=== PATIENT | female | born 1930 | race Caucasian/White ===

== ENCOUNTER 2018-01-29 18:21 | Observation (INO) | payer MEDICARE, OTHER ==
[2018-01-29] MEDS ORDERED: Acetaminophen 325 MG Tab PO ONE (19:30)
--- NOTE | 2018-01-29 20:05 | EDM.PDOC ---
ED HPI GENERAL MEDICAL PROBLEM - General Chief Complaint: Head Injury Stated Complaint: [facility] Time Seen by Provider: 01/29/18 19:28 Source of Information: Reports: Patient, EMS History Limitations: Reports: No Limitations - History of Present Illness INITIAL COMMENTS - FREE TEXT/NARRATIVE: 87-year-old female is brought in by [facility] service for evaluation and treatment of injuries sustained from a fall. Reportedly the patient had just got back from [place]. She was walking with a walker. States that the wind picked up and knocked her over. She is unsure what she hit her head on. Very likely she lost consciousness. She has a wound to her posterior scalp. She also complains of some soreness to her neck and pain to her jaw. She is also complains of pain to the left side of her breast. No chest pain, shortness of breath, abdominal pain, lightheadedness, dizziness, nausea or vomiting. No pain to the extremities. Patient is not on any blood thinners. Primary care providers Dr. Ana Granado. 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 Posterior Head Pain Score (Numeric/FACES): 6 - Related Data Allergies Allergy/AdvReac Type Severity Reaction Status Date / Time dust Allergy Cough Uncoded 05/29/15 15:01 Home Meds: Home Meds Levothyroxine 75 mcg PO DAILY 06/13/14 [History] Losartan Potassium 100 mg PO BEDTIME 06/13/14 [History] Rosuvastatin [Crestor] 5 mg PO DAILY 06/13/14 [History] Sertraline HCl [Zoloft] 50 mg PO DAILY 06/13/14 [History] Verapamil HCl [Verapamil ER] 240 mg PO DAILY 06/13/14 [History] guanFACINE 2 mg PO BEDTIME 06/13/14 [History] hydrALAZINE [Apresoline] 10 mg PO Q12HR 06/13/14 [History] Cholecalciferol (Vitamin D3) [Vitamin D3] 5,000 units PO DAILY 05/29/15 [History ] Multivit-Min/FA/Lycopene/Lut [Certavite Sr-Antioxidant Tab] 1 tab PO BID [History] Omeprazole 20 mg PO DAILY 05/29/15 [History] Acetaminophen [Tylenol] 500 mg PO DAILY PRN 01/29/18 [History] Latanoprost [Xalatan] 1 drop TOP BEDTIME 01/29/18 [History] Meclizine [Antivert] 25 mg PO DAILY PRN 01/29/18 [History] Multivitamin [One Daily] 1 tab PO DAILY 01/29/18 [History] Polyethylene Glycol 3350 [MiraLAX] 17 gram PO DAILY 01/29/18 [History] Spironolactone 50 mg PO DAILY 01/29/18 [History] Tetrahydrozoline HCl 1 drop TOP BEDTIME 01/29/18 [History] Past Medical History HEENT History: Reports: Macular Degeneration Cardiovascular History: Reports: High Cholesterol, Hypertension Genitourinary History: Reports: UTI, Recurrent, Other (See Below) Other Genitourinary History: bladder dropped-unable to have it repaired due to age Musculoskeletal History: Reports: Osteoarthritis, Osteoporosis Neurological History: Reports: Other (See Below) Other Neuro History: CT head revealed a stroke in the past Psychiatric History: Reports: Anxiety, Depression Endocrine/Metabolic History: Reports: Hypothyroidism Oncologic (Cancer) History: Reports: Other (See Below) Other Oncologic History: skin cancer - Past Surgical History GI Surgical History: Reports: Appendectomy, Cholecystectomy Female Surgical History: Reports: Hysterectomy Social & Family History - Tobacco Use Smoking Status *Q: Never Smoker Second Hand Smoke Exposure: No - Caffeine Use Caffeine Use: Reports: Coffee, Soda - Alcohol Use Days Per Week of Alcohol Use: 0 - Recreational Drug Use Recreational Drug Use: No ED ROS GENERAL - Review of Systems Review Of Systems: See Below Respiratory: Denies: Shortness of Breath Cardiovascular: Reports: Syncope. Denies: Chest Pain, Lightheadedness GI/Abdominal: Denies: Abdominal Pain, Nausea, Vomiting Musculoskeletal: Reports: Neck Pain Neurological: Reports: Headache, Syncope ED EXAM, HEAD INJURY - Physical Exam Exam: See Below Exam Limited By: No Limitations General Appearance: Alert, WD/WN, No Apparent Distress Head: Scalp Lacerations (left posterior parietal scalp 2 1cm subcutaneout lacerations, well approximated), Scalp Abrasions (left posterior parietal scalp ), Scalp Hematoma (left posterior parietal scalp). No: Active Bleeding, Little' s Sign, Raccoon Eyes Nexus Criteria: No: Posterior, Midline Cervical Tenderness, Evidence of Intoxication, Altered Level of Consciousness, Focal Neurological Deficit, Painful Distraction Injuries Eyes: Left Eye: Normal Inspection (Left is reactive to light, right is dilated. Reportedly has a history of macular degeneration and cataract surgery to the right and always has an enlarged right pupil.) Ears: Normal External Exam Nose: Normal Inspection, No Blood Throat/Mouth: Normal Inspection, Normal Lips, Normal Teeth, Normal Gums, Normal Oropharynx, Normal Voice, No Airway Compromise Neck: Non-Tender, Full Range of Motion, Normal Alignment, Normal Inspection Respiratory: No Respiratory Distress, Lungs Clear, Normal Breath Sounds, Chest Non-Tender, Other (tenderness to the left lateral breast) Cardiovascular: Normal Peripheral Pulses, Regular Rate, Rhythm, No Murmur GI/Abdominal Exam: Normal Bowel Sounds, Soft, Non-Tender Back Exam: Normal Inspection. No: Vertebral Tenderness Extremities: Normal Inspection Neurologic: Alert, Normal Mood/Affect Skin: Normal Color, Warm/Dry - Charla Coma Score Best Eye Response ([place]): (4) Open Spontaneously Best Verbal Response ([place]): (5) Oriented Best Motor Response ([place]): (6) Obeys Commands EKG INTERPRETATION EKG Date: 01/29/18 Time: 22:20 Rhythm: NSR Rate (Beats/Min): 97 [place]: Normal P-Wave: Present QRS: Normal ST-T: Normal QT: Normal EKG Interpretation Comments: NSR at 97 bpm. No ischemic changes. No LAD. No LVH. NO IVCD. Reviewed by myself and Dr. Teague. Course - Vital Signs Last Recorded V/S: Last Vital Signs Temp 37.0 C 01/29/18 18:30 Pulse 93 01/29/18 18:30 Resp 20 01/29/18 18:30 BP 179/94 H 01/29/18 18:30 Pulse Ox 98 01/29/18 18:30 - Orders/Labs/Meds Orders: Active Orders 24 hr Category Date Time Status Patient Status [ADT] Routine ADT 01/30/18 00:18 Ordered Cardiac Monitoring [RC] . DIRECTED Care 01/29/18 22:13 Active EKG 12 Lead [EKG Documentation Completion] [RC] STAT Care 01/29/18 22:13 Active Peripheral IV Care [RC] . DIRECTED Care 01/29/18 22:15 Active Chest 1V Frontal [CR] Stat Exams 01/29/18 19:27 Taken Chest Abdomen Pelvis w Cont [CT] Stat Exams 01/29/18 22:12 Taken UA W/MICROSCOPIC [URIN] Stat Lab 01/29/18 22:36 Ordered Sodium Chloride 0.9% [Normal Saline] 1,000 ml Med 01/30/18 00:15 Active IV ASDIRECTED Sodium Chloride 0.9% [Normal Saline] 100 ml Med 01/29/18 22:30 Active IV ASDIRECTED Sodium Chloride 0.9% [Saline Flush] Med 01/29/18 22:15 Active 10 ml FLUSH ASDIRECTED PRN Peripheral IV Insertion Adult [OM.PC] Routine Oth 01/29/18 22:15 Ordered Medication Orders Sodium Chloride (Normal Saline) 100 mls @ 60 mls/hr IV ASDIRECTED MOR Last Admin: 01/29/18 22:46 Dose: 60 mls/hr Sodium Chloride (Normal Saline) 1,000 mls @ 75 mls/hr IV ASDIRECTED MOR Sodium Chloride (Saline Flush) 10 ml FLUSH ASDIRECTED PRN PRN Reason: Keep Vein Open Last Admin: 01/29/18 22:46 Dose: 10 ml Admin: 01/29/18 22:25 Dose: 10 ml Labs: Laboratory Tests 01/29/18 01/29/18 01/29/18 Range/Units 19:50 19:50 19:50 WBC 14.47 H (3.98-10.04) K/mm3 RBC 3.87 L (3.98-5.22) M/mm3 Hgb 12.1 (11.2-15.7) gm/L Hct 36.9 (34.1-44.9) % MCV 95.3 H (79.4-94.8) fl MCH 31.3 (25.6-32.2) pg MCHC 32.8 (32.2-35.5) g/dl RDW Std Deviation 44.0 (36.4-46.3) fL Plt Count 198 (182-369) K/mm3 MPV 9.7 (9.4-12.3) fl Neut % (Auto) 88.4 H (34.0-71.1) % Lymph % (Auto) 4.1 L (19.3-51.7) % [place] % (Auto) 6.6 (4.7-12.5) % Eos % (Auto) 0.5 L (0.7-5.8) Baso % (Auto) 0.1 (0.1-1.2) % Neut # (Auto) 12.79 H (1.56-6.13) K/mm3 Lymph # (Auto) 0.59 L (1.18-3.74) K/mm3 [place] # (Auto) 0.96 H (0.24-0.36) K/mm3 Eos # (Auto) 0.07 (0.04-0.36) K/mm3 Baso # (Auto) 0.01 (0.01-0.08) K/mm3 Manual Slide Review Abnormal smear PT 10.5 (9.5-12.1) SECONDS INR 0.96 APTT 27 (24-31) SECONDS Sodium 137 (136-145) mEq/L Potassium 4.4 (3.5-5.1) mEq/L Chloride 102 (98-107) mEq/L Carbon Dioxide 23 (21-32) mEq/L Anion Gap 16.4 H (5-15) BUN 28 H (7-18) mg/dL Creatinine 1.2 H (0.55-1.02) mg/dL Est Cr Clr Drug Dosing 25.63 mL/min Estimated GFR (MDRD) 42 (>60) mL/min BUN/Creatinine Ratio 23.3 H (14-18) Glucose 105 (83-115) mg/dL Calcium 10.1 (8.5-10.1) mg/dL Total Bilirubin 0.4 (0.2-1.0) mg/dL AST 20 (15-37) U/L ALT 22 (14-59) U/L Alkaline Phosphatase 81 (46-116) U/L Troponin I (0.00-0.056) ng/mL Total Protein 7.9 (6.4-8.2) g/dl Albumin 4.1 (3.4-5.0) g/dl Globulin 3.8 gm/dL Albumin/Globulin Ratio 1.1 (1-2) 18 01/29/18 Range/Units 22:18 22:18 WBC (3.98-10.04) K/mm3 RBC (3.98-5.22) M/mm3 Hgb 11.9 (11.2-15.7) gm/L Hct 36.7 (34.1-44.9) % MCV (79.4-94.8) fl MCH (25.6-32.2) pg MCHC (32.2-35.5) g/dl RDW Std Deviation (36.4-46.3) fL Plt Count (182-369) K/mm3 MPV (9.4-12.3) fl Neut % (Auto) (34.0-71.1) % Lymph % (Auto) (19.3-51.7) % Rowan % (Auto) (4.7-12.5) % Eos % (Auto) (0.7-5.8) Baso % (Auto) (0.1-1.2) % Neut # (Auto) (1.56-6.13) K/mm3 Lymph # (Auto) (1.18-3.74) K/mm3 [place] # (Auto) (0.24-0.36) K/mm3 Eos # (Auto) (0.04-0.36) K/mm3 Baso # (Auto) (0.01-0.08) K/mm3 Manual Slide Review PT (9.5-12.1) SECONDS INR APTT (24-31) SECONDS Sodium (136-145) mEq/L Potassium (3.5-5.1) mEq/L Chloride (98-107) mEq/L Carbon Dioxide (21-32) mEq/L Anion Gap (5-15) BUN (7-18) mg/dL Creatinine (0.55-1.02) mg/dL Est Cr Clr Drug Dosing mL/min Estimated GFR (MDRD) (>60) mL/min BUN/Creatinine Ratio (14-18) Glucose (83-115) mg/dL Calcium (8.5-10.1) mg/dL Total Bilirubin (0.2-1.0) mg/dL AST (15-37) U/L ALT (14-59) U/L Alkaline Phosphatase (46-116) U/L Troponin I < 0.017 (0.00-0.056) ng/mL Total Protein (6.4-8.2) g/dl Albumin (3.4-5.0) g/dl Globulin gm/dL Albumin/Globulin Ratio (1-2) Meds: Medications Generic Name Dose Route Start Last Admin Trade Name Freq PRN Reason Stop Dose Admin Sodium Chloride 100 mls @ 60 mls/hr 01/29/18 22:30 01/29/18 22:46 Normal Saline IV 60 mls/hr ASDIRECTED MOR Administration Sodium Chloride 1,000 mls @ 75 mls/hr 01/30/18 00:15 Normal Saline IV ASDIRECTED MOR Sodium Chloride 10 ml 01/29/18 22:15 01/29/18 22:46 Saline Flush FLUSH 10 ml ASDIRECTED PRN Administration Keep Vein Open Discontinued Medications Generic Name Dose Route Start Last Admin Trade Name Benitoq PRN Reason Stop Dose Admin Acetaminophen 650 mg 01/29/18 19:30 01/29/18 19:37 Tylenol PO 01/29/18 19:31 650 mg NOW ONE Administration Sodium Chloride 250 mls @ 999 mls/hr 01/29/18 22:13 01/29/18 22:25 Normal Saline IV 01/29/18 22:28 999 mls/hr ONETIME ONE Administration Iopamidol 100 ml 01/29/18 22:27 01/29/18 22:45 Isovue-300 (61%) IVPUSH 01/29/18 22:28 100 ml ONETIME ONE Administration Ondansetron HCl 4 mg 01/29/18 22:00 01/29/18 22:06 Zofran Odt PO 01/29/18 22:01 4 mg ONETIME ONE Administration - Radiology Interpretation Free Text/Narrative:: Head CT Technique: Multiple axial sections through the brain were obtained. Intravenous contrast was not utilized. Comparison: Prior head CT exam of 05/29/15. Findings: Soft tissue hematoma is seen within the posterior and left sided scalp. Findings: Ventricles along with basal cisterns and sulci over the convexities are moderately prominent. Diminished density is noted within the periventricular and subcortical white matter which is compatible with small vessel ischemic demyelination change. No other abnormal parenchymal densities are seen. No evidence of intracranial hemorrhage. No midline shift or mass effect is seen. Slight atherosclerotic calcification is noted within the vertebral vessels and carotid siphon. No acute calvarial abnormality is appreciated. Minimal mucosal thickening within the maxillary sinuses is noted which is felt to be incidental. Impression: 1. Senescent change and minimal sinus findings which are felt to be incidental. 2. Soft tissue hematoma within the posterior left scalp. 3. No acute intracranial abnormality is identified. CT cervical spine Technique: Multiple axial sections through the cervical spine were obtained from above C1 inferiorly to the mid T2 level. Reconstructed coronal and sagittal images were reviewed. Comparison: No previous cervical spine imaging. Findings: Degenerative change is noted between the dens and anterior arch of C1. Severe disc space narrowing noted at C6-C7 with mild posterior osteophytes and more prominent anterior osteophytes. Bony structures are also osteopenic. No fracture is appreciated. Slight degenerative change is scattered within the apophyseal joints. No central canal stenosis or neural foraminal stenosis is seen. No abnormal subluxation is seen. Slight scoliosis is present. Impression: 1. Mild degenerative change and scoliosis. 2. Nothing acute is appreciated on CT study of the cervical spine. CT facial bones Technique: Multiple axial sections through the facial bones were obtained. Reconstructed coronal and sagittal images were reviewed. Findings: Mucosal thickening suggested on previous head CT study is not confirmed on the facial bone CT. Paranasal sinuses are felt to be clear. Mild degenerative change is noted within the temporomandibular joints. No facial bone fracture is identified. Impression: 1. Slight degenerative change within the temporomandibular joints. 2. No acute facial bone fracture is seen. Chest xray shows no acute intrathoraccic prcess. Chest CT with IV contrast impression per [facility]: 1. Multiple small pleural nodules measuring up to 5 mm in diameter. For low risk patient, no follow-up is necessary. For high-risk patients (smoking history other known risk factors) an optional chest CT at 12 months could be performed. 2. 3.9 nodule within the right lobe of the thyroid gland with 1 cm nodule in the left lobe. Ultrasound may be considered for further evaluation. 3. Age- indeterminate nondisplaced fracture of the left anterior third and fourth ribs, possibly remote. 4. Large hiatal hernia. CT of the abdomen and pelvis with IV contrast impression per [facility]: 1. Questionable nondisplaced sacral fracture. There is small presacral hematoma with mild extravasation. 2. Enhancing 2.7 a lesion within the spleen. Consider or MRI further evaluate.. Moderate diverticulosis. 4. There is a 1 cm cyst within the body of the pancreas. Consider single follow-up abdominal MRI in one year. A limited to weighted MRI can be performed for routine follow-up. 5. Bilateral renal cysts. - Re-Assessments/Exams Free Text/Narrative Re-Assessment/Exam: 01/29/18 22:09 Review the chest xray, head CT, cervical spine and maxillofacial CT results The patient got up to use the restroom. We did give her a walker which she normally uses at home. Nursing staff informed me she is having problems going to the bathroom but when she sat down she felt lightheaded and nauseous. She is brought back to her room. Systolic blood pressures found in the 90s. Has greatly decreased from systolic 170s earlier. We'll go ahead and CT her chest and abdomen and pelvis to ensure she is not have any intrathoracic or intra- abdominal bleeding. Is possible that she has had a vasovagal episode. EKG, troponin and a repeat H&H also ordered. 01/30/18 00:26 Repeat H&H returned essentially unchanged. Troponin returned negative. I reviewed the CT of the chest, abdomen and pelvis with the patient and her family. She is not having any pain. I did push on her sacrum,again, and she does not have any pain to the sacrum. She is resting comfortably at this time. Case discussed with Dr. Mondragon, hospitalist on-call. We'll admit for observation. Departure - Departure Time of Disposition: 00:32 Disposition: Refer to Observation Condition: Good Clinical Impression: Hematoma Fall Qualifiers: Encounter type: initial encounter Qualified Code(s): W19.XXXA - Unspecified fall, initial encounter Left rib fracture Qualifiers: Encounter type: initial encounter Rib fracture type: multiple ribs Fracture type: closed Qualified Code(s): S22.42XA - Multiple fractures of ribs, left side , initial encounter for closed fracture - Discharge Information Referrals: Ana Granado MD [Primary Care Provider] - Forms: ED Department Discharge - My Orders Last 24 Hours: My Active Orders 01/29/18 19:27 Chest 1V Frontal [CR] Stat 01/29/18 22:12 Chest Abdomen Pelvis w Cont [CT] Stat 01/29/18 22:13 Cardiac Monitoring [RC] . DIRECTED EKG 12 Lead [EKG Documentation Completion] [RC] STAT 01/29/18 22:15 Peripheral IV Care [RC] . DIRECTED Sodium Chloride 0.9% [Saline Flush] 10 ml FLUSH ASDIRECTED PRN Peripheral IV Insertion Adult [OM.PC] Routine 01/29/18 22:30 Sodium Chloride 0.9% [Normal Saline] 100 ml IV ASDIRECTED 01/29/18 22:36 UA W/MICROSCOPIC [URIN] Stat 01/30/18 00:15 Sodium Chloride 0.9% [Normal Saline] 1,000 ml IV ASDIRECTED 01/30/18 00:18 Patient Status [ADT] Routine - Assessment/Plan Last 24 Hours: My Active Orders 01/29/18 19:27 Chest 1V Frontal [CR] Stat 01/29/18 22:12 Chest Abdomen Pelvis w Cont [CT] Stat 01/29/18 22:13 Cardiac Monitoring [RC] . DIRECTED EKG 12 Lead [EKG Documentation Completion] [RC] STAT 01/29/18 22:15 Peripheral IV Care [RC] . DIRECTED Sodium Chloride 0.9% [Saline Flush] 10 ml FLUSH ASDIRECTED PRN Peripheral IV Insertion Adult [OM.PC] Routine 01/29/18 22:30 Sodium Chloride 0.9% [Normal Saline] 100 ml IV ASDIRECTED 01/29/18 22:36 UA W/MICROSCOPIC [URIN] Stat 01/30/18 00:15 Sodium Chloride 0.9% [Normal Saline] 1,000 ml IV ASDIRECTED 01/30/18 00:18 Patient Status [ADT] Routine
--- NOTE | 2018-01-29 21:03 | CT ---
Head CT Technique: Multiple axial sections through the brain were obtained. Intravenous contrast was not utilized. Comparison: Prior head CT exam of 05/29/15. Findings: Soft tissue hematoma is seen within the posterior and left sided scalp. Findings: Ventricles along with basal cisterns and sulci over the convexities are moderately prominent. Diminished density is noted within the periventricular and subcortical white matter which is compatible with small vessel ischemic demyelination change. No other abnormal parenchymal densities are seen. No evidence of intracranial hemorrhage. No midline shift or mass effect is seen. Slight atherosclerotic calcification is noted within the vertebral vessels and carotid siphon. No acute calvarial abnormality is appreciated. Minimal mucosal thickening within the maxillary sinuses is noted which is felt to be incidental. Impression: 1. Senescent change and minimal sinus findings which are felt to be incidental. 2. Soft tissue hematoma within the posterior left scalp. 3. No acute intracranial abnormality is identified. Diagnostic code #2
--- NOTE | 2018-01-29 21:06 | CT ---
CT cervical spine Technique: Multiple axial sections through the cervical spine were obtained from above C1 inferiorly to the mid T2 level. Reconstructed coronal and sagittal images were reviewed. Comparison: No previous cervical spine imaging. Findings: Degenerative change is noted between the dens and anterior arch of C1. Severe disc space narrowing noted at C6-C7 with mild posterior osteophytes and more prominent anterior osteophytes. Bony structures are also osteopenic. No fracture is appreciated. Slight degenerative change is scattered within the apophyseal joints. No central canal stenosis or neural foraminal stenosis is seen. No abnormal subluxation is seen. Slight scoliosis is present. Impression: 1. Mild degenerative change and scoliosis. 2. Nothing acute is appreciated on CT study of the cervical spine. Diagnostic code #2
--- NOTE | 2018-01-29 21:16 | CT ---
CT facial bones Technique: Multiple axial sections through the facial bones were obtained. Reconstructed coronal and sagittal images were reviewed. Findings: Mucosal thickening suggested on previous head CT study is not confirmed on the facial bone CT. Paranasal sinuses are felt to be clear. Mild degenerative change is noted within the temporomandibular joints. No facial bone fracture is identified. Impression: 1. Slight degenerative change within the temporomandibular joints. 2. No acute facial bone fracture is seen. Diagnostic code #2
[2018-01-29] MEDS ORDERED: Ondansetron 4 MG Tab.DIS PO ONE (22:00)
[2018-01-29] MEDS ORDERED: Sodium Chloride 0.9% 250 ML IV ONE (22:13)
[2018-01-29] MEDS: Sodium Chloride 0.9% 10 ML Syringe FLUSH PRN ×2 (22:25→22:46)
[2018-01-29] MEDS ORDERED: Iopamidol 612 MG/ML 100 ML Bottle IVPUSH ONE (22:27)
[2018-01-29] MEDS ORDERED: Sodium Chloride 0.9% 100 ML IV SCH (22:30)
[2018-01-30] MEDS ORDERED: Sodium Chloride 0.9% 1,000 ML IV SCH ×2 (00:15→01:00)
[2018-01-30] MEDS ORDERED: hydrALAZINE 20 MG/ML SDV IVPUSH PRN (00:58)
[2018-01-30] MEDS ORDERED: Sodium Chloride 0.9% 500 ML IV ONE (00:59)
[2018-01-30] MEDS: Acetaminophen 325 MG Tab PO PRN ×3 (01:23→09:00)
--- NOTE | 2018-01-30 07:39 | CR ---
Chest: Portable view of the chest was obtained. Comparison: Prior chest x-ray of 11/25/16. Heart size is normal. Moderately large hiatal hernia is seen. Tortuous thoracic aorta is seen. Lungs are clear. Bony structures are osteopenic. Impression: 1. Incidental findings as described above. Nothing acute is identified on portable chest x-ray. Diagnostic code #2
--- NOTE | 2018-01-30 07:43 | CT ---
CT chest Technique: Multiple axial sections were obtained from above the lung apices inferiorly through the lung bases. Intravenous contrast was utilized. Comparison: No prior chest CT. Right lobe of the thyroid gland is enlarged by a nodule measuring approximately 3.1 cm. Smaller left lobe nodule is seen measuring 1.7 cm. Atherosclerotic calcifications seen within the thoracic aorta without aneurysm. No mediastinal adenopathy or hilar adenopathy is seen. Moderately large hiatal hernia is seen. Insignificant coronary artery calcification is seen. Mild motion artifact identified which slightly limits the lung window settings. Small scattered nodules identified within the chest which are felt to measure less than 5 mm and are incidental given the patient's age. Lungs show no acute parenchymal densities. No pleural effusions are seen. Several incidental hemangiomas seen within the thoracic spine. Slight deformity noted to several left upper ribs which are felt to be due to old healed fractures. No acute osseous abnormality is seen. Scattered degenerative change noted within the spine. Impression: 1. Multiple findings as noted above which are likely incidental given the patient's age. 2. Nothing acute is appreciated on CT study of the chest. Diagnostic code #2 I agree with preliminary report issued by [employer] ([facility] preliminary report dictated on 01/30/18, 12:37 AM Central Time) CT abdomen and pelvis Technique: Multiple axial sections were obtained from above the dome of the diaphragm inferiorly through the pubic symphysis. Intravenous contrast was utilized. No oral contrast has been given. Comparison: No prior CT abdomen or pelvis exam. Findings: Liver shows no focal parenchymal abnormality. Moderately large hiatal hernia is noted. Multiple cysts are seen within both kidneys which appears simple. Largest cyst within the right kidney measures about 4.8 cm and largest cyst within the left kidney measures about 3.3 cm. Spleen shows an enhancing lesion measuring 2.5 cm. Pancreas shows a small cyst measuring 1.0 cm. Aorta shows mild atherosclerotic change without aneurysmal dilatation. No retroperitoneal adenopathy or mesenteric abnormalities are seen. No pelvic mass or adenopathy is noted. Delayed images were also obtained through the abdomen and pelvis which show contrast excretion into the ureters which appear unremarkable. Contrast also noted within the bladder. No free fluid or inflammatory change is seen within the abdomen or pelvis. Degenerative change noted within the spine. On the reconstructed sagittals there is a slightly displaced fracture within the distal sacrum. Impression: 1. 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 2. Enhancing lesion within the spleen most likely benign (because of the patient's age). 3. Slightly displaced distal sacral fracture seen on the lateral view which appears to be acute. 4. Other incidental findings as described above. Diagnostic code #3 Agree with preliminary report issued by [employer] ([facility] preliminary report dictated on 01/30/18, 12:37 AM Central Time)
[2018-01-30] MEDS ORDERED: Magnesium Sulfate/Water 2 GM in Premix Bag 1 BAG IV ONE (07:44)
[2018-01-30 08:46] VITALS: BP 153/78
[2018-01-30] MEDS ORDERED: Sodium Chloride 0.9% 10 ML Syringe FLUSH PRN (10:57)
--- NOTE | 2018-01-30 11:27 | PCM.HP ---
H&P History of Present Illness - General Date of Service: 01/30/18 Admit Problem/Dx: Admission Diagnosis/Problem Admission Diagnosis/Problem Fall Source of Information: Patient, Old Records, Provider History Limitations: Reports: No Limitations - History of Present Illness Initial Comments - Free Text/Narative: This is an 87 yo female with past medical h/o HTN, hyperlipidemia, macular degeneration, osteoarthritis, osteoporosis, anxiety, depression, stroke, hypothyroidism, vertigo who comes in late last night for a fall. She currently complains of left chest pain as well as pain with sitting, there is also an abrasion to the back of her head but there is no pain. Patient states her chest pain is a 5/10 with movement, 0/10 at rest. She reports no fever, chills, headache, nausea, vomiting, diarrhea, dizziness, shortness of breath, or any other GI/ complaints. Her symptoms improved after receiving fluids and pain management in the ED. Her initial workup in the ED shows a CBC of WBC of 14.47, MCHC of 32.8, RDW 44, neutrophils of 88.4% and lymphocyte of 4.1%. Her coagulation study shows PT of 10.5, INR of 0.96, APTT of 27. Her chemistry shows BUN of 28, Creatinine of 1.2 , Albumin 4.1, Glucose of 105, Alkaline phosphatase of 81, Mg 1.7, Troponin of < 0.017, ProBNP of 769, Total protein of 7.9, an Albumin of 4.1. Chest X-ray and Facial/Sinus/Head/Cervical Spine/Abdomen CTs shows no acute abnormal findings. Pelvis CT showed distal sacral fracture and Chest CT showed multiple old healed left upper rib fractures, most likely from a previous fall. EKG was negative. She is subsequently admitted to the medical floor for observation. She is a full code. Her PCP Ana Granado. Posterior Head Pain Score (Numeric/FACES): 6 left breast area Pain Score (Numeric/FACES): 4 - Related Data Allergies/Adverse Reactions: Allergies Allergy/AdvReac Type Severity Reaction Status Date / Time pollen extracts Allergy Sneezing Verified 01/30/18 01:32 dust Allergy Cough Uncoded 05/29/15 15:01 Home Medications: Home Meds Levothyroxine 75 mcg PO QAM 06/13/14 [History] Losartan Potassium 100 mg PO BEDTIME 06/13/14 [History] Rosuvastatin [Crestor] 5 mg PO DAILY 06/13/14 [History] Sertraline HCl [Zoloft] 50 mg PO DAILY 06/13/14 [History] Verapamil HCl [Verapamil ER] 240 mg PO DAILY 06/13/14 [History] guanFACINE 1 mg PO BEDTIME 06/13/14 [History] hydrALAZINE [Apresoline] 10 mg PO Q12HR 06/13/14 [History] Cholecalciferol (Vitamin D3) [Vitamin D3] 5,000 units PO DAILY 05/29/15 [History ] Multivit-Min/FA/Lycopene/Lut [Certavite Sr-Antioxidant Tab] 1 tab PO BID [History] Omeprazole 20 mg PO DAILY 05/29/15 [History] Acetaminophen [Tylenol] 500 mg PO DAILY PRN 01/29/18 [History] Latanoprost [Xalatan 0.005% Ophth Soln] 1 drop TOP BEDTIME 01/29/18 [History] Meclizine [Antivert] 25 mg PO DAILY PRN 01/29/18 [History] Multivitamin [One Daily] 1 tab PO DAILY 01/29/18 [History] Polyethylene Glycol 3350 [MiraLAX] 17 gram PO DAILY 01/29/18 [History] Spironolactone 50 mg PO DAILY 01/29/18 [History] Tetrahydrozoline HCl 1 drop TOP BEDTIME 01/29/18 [History] Past Medical History HEENT History: Reports: Macular Degeneration Cardiovascular History: Reports: High Cholesterol, Hypertension Respiratory History: Reports: None Genitourinary History: Reports: UTI, Recurrent, Other (See Below) Other Genitourinary History: bladder dropped-unable to have it repaired due to age Musculoskeletal History: Reports: Osteoarthritis, Osteoporosis Neurological History: Reports: Other (See Below) Other Neuro History: CT head revealed a stroke in the past Psychiatric History: Reports: Anxiety, Depression Endocrine/Metabolic History: Reports: Hypothyroidism Hematologic History: Reports: Anemia Immunologic History: Reports: None Oncologic (Cancer) History: Reports: Other (See Below) Other Oncologic History: skin cancer Dermatologic History: Reports: None - Past Surgical History HEENT Surgical History: Reports: Cataract Surgery GI Surgical History: Reports: Appendectomy, Cholecystectomy Female Surgical History: Reports: Hysterectomy Social & Family History - Family History Endocrine/Metabolic: Reports: Diabetes, type II - Tobacco Use Smoking Status *Q: Never Smoker Second Hand Smoke Exposure: No - Caffeine Use Caffeine Use: Reports: Coffee Caffeine Use Comment: Drinks about a cup of coffee each morning - Alcohol Use Days Per Week of Alcohol Use: 0 - Recreational Drug Use Recreational Drug Use: No H&P Review of Systems - Review of Systems: Review Of Systems: See Below General: Reports: No Symptoms. Denies: Fever, Chills, Weakness HEENT: Reports: No Symptoms. Denies: Headaches, Vertigo Pulmonary: Reports: No Symptoms. Denies: Shortness of Breath Cardiovascular: Reports: Chest Pain (5/10 left chest pain with movement only). Denies: Palpitations, Dyspnea on Exertion, Edema Gastrointestinal: Reports: No Symptoms. Denies: Abdominal Pain, Diarrhea, Nausea, Vomiting Genitourinary: Reports: No Symptoms. Denies: Dysuria, Frequency, Burning Musculoskeletal: Reports: No Symptoms Skin: Reports: No Symptoms Psychiatric: Reports: No Symptoms Neurological: Reports: No Symptoms Hematologic/Lymphatic: Reports: No Symptoms Immunologic: Reports: No Symptoms Exam - Exam Exam: See Below - Vital Signs Vital Signs: Last Vital Signs Temp 98.4 F 01/30/18 08:43 Pulse 84 01/30/18 08:43 Resp 18 01/30/18 08:43 BP 153/78 H 01/30/18 08:43 Pulse Ox 90 L 01/30/18 08:43 Orthostatic Blood Pressure [ 137/71 Standing] Orthostatic Blood Pressure [ 148/89 Sitting] Orthostatic Blood Pressure [ 142/84 Supine] Weight: 159 lb 11.2 oz - Exam Quality Assessment: No: Supplemental Oxygen, Urinary Catheter General: Alert, Oriented, 4 HEENT: Conjunctiva Clear, EACs Clear, EOMI, Hearing Intact, Mucosa Moist & [place] , Nares Patent, Normal Nasal Septum, Posterior Pharynx Clear, TMs Clear, Other ( abrasion to the back of the head) Neck: Supple, Trachea Midline, 2 Lungs: Clear to Auscultation, Normal Respiratory Effort. No: Decreased Breath Sounds, Crackles, Wheezing Cardiovascular: Regular Rate, Regular Rhythm GI/Abdominal Exam: Normal Bowel Sounds, Soft, Non-Tender, No Organomegaly, No Distention, No Abnormal Bruit, No Mass, Pelvis Stable (Female) Exam: Deferred Rectal (Female) Exam: Deferred Back Exam: Normal Inspection, Full Range of Motion, NT Extremities: Normal Inspection, Normal Range of Motion, Non-Tender, No Pedal Edema, Normal Capillary Refill Peripheral Pulses: 2+: Posterior Tibial (L), Posterior Tibial (R), Dorsalis Pedis (L), Dorsalis Pedis (R) Skin: Warm, Dry, Intact Neurological: Cranial Nerves Intact (grossly) Neuro Extensive - Mental Status: Alert, Oriented x3, Normal Mood/Affect, Normal Cognition Psychiatric: Alert, Normal Affect, Normal Mood Physical Exam Comments:: Left chest TTP and 5/10 pain with movement and palpation only. 0/10 at rest. - Patient Data Lab Results Last 24 hrs: Laboratory Results - last 24 hr 01/29/18 01/29/18 01/29/18 Range/Units 19:50 19:50 19:50 WBC 14.47 H (3.98-10.04) K/mm3 RBC 3.87 L (3.98-5.22) M/mm3 Hgb 12.1 (11.2-15.7) gm/L Hct 36.9 (34.1-44.9) % MCV 95.3 H (79.4-94.8) fl MCH 31.3 (25.6-32.2) pg MCHC 32.8 (32.2-35.5) g/dl RDW Std Deviation 44.0 (36.4-46.3) fL Plt Count 198 (182-369) K/mm3 MPV 9.7 (9.4-12.3) fl Neut % (Auto) 88.4 H (34.0-71.1) % Lymph % (Auto) 4.1 L (19.3-51.7) % [place] % (Auto) 6.6 (4.7-12.5) % Eos % (Auto) 0.5 L (0.7-5.8) Baso % (Auto) 0.1 (0.1-1.2) % Neut # (Auto) 12.79 H (1.56-6.13) K/mm3 Lymph # (Auto) 0.59 L (1.18-3.74) K/mm3 [place] # (Auto) 0.96 H (0.24-0.36) K/mm3 Eos # (Auto) 0.07 (0.04-0.36) K/mm3 Baso # (Auto) 0.01 (0.01-0.08) K/mm3 Manual Slide Review Abnormal smear PT 10.5 (9.5-12.1) SECONDS INR 0.96 APTT 27 (24-31) SECONDS Sodium 137 (136-145) mEq/L Potassium 4.4 (3.5-5.1) mEq/L Chloride 102 (98-107) mEq/L Carbon Dioxide 23 (21-32) mEq/L Anion Gap 16.4 H (5-15) BUN 28 H (7-18) mg/dL Creatinine 1.2 H (0.55-1.02) mg/dL Est Cr Clr Drug Dosing 25.63 mL/min Estimated GFR (MDRD) 42 (>60) mL/min BUN/Creatinine Ratio 23.3 H (14-18) Glucose 105 (83-115) mg/dL Calcium 10.1 (8.5-10.1) mg/dL Magnesium (1.8-2.4) mg/dl Total Bilirubin 0.4 (0.2-1.0) mg/dL AST 20 (15-37) U/L ALT 22 (14-59) U/L Alkaline Phosphatase 81 (46-116) U/L Troponin I (0.00-0.056) ng/mL NT-Pro-B Natriuret Pep (0-450) pg/mL Total Protein 7.9 (6.4-8.2) g/dl Albumin 4.1 (3.4-5.0) g/dl Globulin 3.8 gm/dL Albumin/Globulin Ratio 1.1 (1-2) MRSA (PCR) 01/29/18 01/29/18 01/30/18 Range/Units 22:18 22:18 05:03 WBC (3.98-10.04) K/mm3 RBC (3.98-5.22) M/mm3 Hgb 11.9 (11.2-15.7) gm/L Hct 36.7 (34.1-44.9) % MCV (79.4-94.8) fl MCH (25.6-32.2) pg MCHC (32.2-35.5) g/dl RDW Std Deviation (36.4-46.3) fL Plt Count (182-369) K/mm3 MPV (9.4-12.3) fl Neut % (Auto) (34.0-71.1) % Lymph % (Auto) (19.3-51.7) % [place] % (Auto) (4.7-12.5) % Eos % (Auto) (0.7-5.8) Baso % (Auto) (0.1-1.2) % Neut # (Auto) (1.56-6.13) K/mm3 Lymph # (Auto) (1.18-3.74) K/mm3 [place] # (Auto) (0.24-0.36) K/mm3 Eos # (Auto) (0.04-0.36) K/mm3 Baso # (Auto) (0.01-0.08) K/mm3 Manual Slide Review PT (9.5-12.1) SECONDS INR APTT (24-31) SECONDS Sodium (136-145) mEq/L Potassium (3.5-5.1) mEq/L Chloride (98-107) mEq/L Carbon Dioxide (21-32) mEq/L Anion Gap (5-15) BUN (7-18) mg/dL Creatinine (0.55-1.02) mg/dL Est Cr Clr Drug Dosing mL/min Estimated GFR (MDRD) (>60) mL/min BUN/Creatinine Ratio (14-18) Glucose (83-115) mg/dL Calcium (8.5-10.1) mg/dL Magnesium (1.8-2.4) mg/dl Total Bilirubin (0.2-1.0) mg/dL AST (15-37) U/L ALT (14-59) U/L Alkaline Phosphatase (46-116) U/L Troponin I < 0.017 (0.00-0.056) ng/mL NT-Pro-B Natriuret Pep (0-450) pg/mL Total Protein (6.4-8.2) g/dl Albumin (3.4-5.0) g/dl Globulin gm/dL Albumin/Globulin Ratio (1-2) MRSA (PCR) Negative 01/30/18 01/30/18 01/30/18 Range/Units 05:13 05:13 05:13 WBC 10.32 H (3.98-10.04) K/mm3 RBC 3.36 L (3.98-5.22) M/mm3 Hgb 10.6 L (11.2-15.7) gm/L Hct 32.0 L (34.1-44.9) % MCV 95.2 H (79.4-94.8) fl MCH 31.5 (25.6-32.2) pg MCHC 33.1 (32.2-35.5) g/dl RDW Std Deviation 44.5 (36.4-46.3) fL Plt Count 184 (182-369) K/mm3 MPV 10.1 (9.4-12.3) fl Neut % (Auto) 88.6 H (34.0-71.1) % Lymph % (Auto) 4.6 L (19.3-51.7) % [place] % (Auto) 6.5 (4.7-12.5) % Eos % (Auto) 0 L (0.7-5.8) Baso % (Auto) 0.1 (0.1-1.2) % Neut # (Auto) 9.15 H (1.56-6.13) K/mm3 Lymph # (Auto) 0.47 L (1.18-3.74) K/mm3 [place] # (Auto) 0.67 H (0.24-0.36) K/mm3 Eos # (Auto) 0.00 L (0.04-0.36) K/mm3 Baso # (Auto) 0.01 (0.01-0.08) K/mm3 Manual Slide Review Abnormal smear PT (9.5-12.1) SECONDS INR APTT (24-31) SECONDS Sodium (136-145) mEq/L Potassium (3.5-5.1) mEq/L Chloride (98-107) mEq/L Carbon Dioxide (21-32) mEq/L Anion Gap (5-15) BUN (7-18) mg/dL Creatinine (0.55-1.02) mg/dL Est Cr Clr Drug Dosing mL/min Estimated GFR (MDRD) (>60) mL/min BUN/Creatinine Ratio (14-18) Glucose (83-115) mg/dL Calcium (8.5-10.1) mg/dL Magnesium 1.7 L (1.8-2.4) mg/dl Total Bilirubin (0.2-1.0) mg/dL AST (15-37) U/L ALT (14-59) U/L Alkaline Phosphatase (46-116) U/L Troponin I 0.022 (0.00-0.056) ng/mL NT-Pro-B Natriuret Pep 769 H (0-450) pg/mL Total Protein (6.4-8.2) g/dl Albumin (3.4-5.0) g/dl Globulin gm/dL Albumin/Globulin Ratio (1-2) MRSA (PCR) Result Diagrams: 01/30/18 05:13 01/29/18 19:50 - Problem List (1) Fall SNOMED Code(s): 2187256, 599980686 ICD Code: W19.XXXA - UNSPECIFIED FALL, INITIAL ENCOUNTER Status: Acute Priority: High Current Visit: Yes Qualifiers: Encounter type: initial encounter Qualified Code(s): W19.XXXA - Unspecified fall, initial encounter (2) Left rib fracture SNOMED Code(s): 01900263 ICD Code: S22.32XA - FRACTURE OF ONE RIB, LEFT SIDE, INIT FOR CLOS FX Status: Chronic Priority: Low Current Visit: No Qualifiers: Encounter type: initial encounter Rib fracture type: multiple ribs Fracture type: closed Qualified Code(s): S22.42XA - Multiple fractures of ribs , left side, initial encounter for closed fracture (3) Vertigo SNOMED Code(s): 881182302 ICD Code: R42 - DIZZINESS AND GIDDINESS Status: Acute Priority: Low Current Visit: No Problem List Initiated/Reviewed/Updated: Yes Orders Last 24hrs: Active Orders 24 hr Category Date Time Status Patient Status [ADT] Routine ADT 01/30/18 00:18 Active EKG 12 Lead [EKG Documentation Completion] [RC] STAT Care 01/29/18 22:13 Active EKG Documentation Completion [RC] ASDIRECTED Care 01/30/18 07:00 Inactive Orthostatic Vital Signs [RC] ONETIME Care 01/30/18 02:00 Active Consult to Occupational Therapy [OT Evaluation and Cons 01/30/18 00:57 Active Treatment] [CONS] Routine Consult to Physical Therapy [PT Evaluation and Cons 01/30/18 00:56 Active Treatment] [CONS] Routine Clear Liquid Diet [DIET] Diet 01/30/18 Breakfast Active METH-RESIST S.AUR,MRSA BY PCR [MOLEC] Routine Lab 01/30/18 05:03 Ordered UA W/MICROSCOPIC [URIN] Stat Lab 01/29/18 22:36 Ordered Acetaminophen [Tylenol] Med 01/30/18 00:55 Active 650 mg PO Q4H PRN Sodium Chloride 0.9% [Normal Saline] 1,000 ml Med 01/30/18 01:00 Active IV ASDIRECTED Sodium Chloride 0.9% [Saline Flush] Med 01/29/18 22:15 Active 10 ml FLUSH ASDIRECTED PRN Sodium Chloride 0.9% [Saline Flush] Med 01/30/18 10:57 Active 10 ml FLUSH ASDIRECTED PRN hydrALAZINE [Apresoline] Med 01/30/18 00:58 Active 20 mg IVPUSH Q8H PRN Peripheral IV Insertion Adult [OM.PC] Routine Oth 01/29/18 22:15 Ordered Saline Lock Insert [OM.PC] Routine Oth 01/30/18 10:57 Ordered Resuscitation Status Routine Resus Stat 01/30/18 01:28 Ordered Medication Orders Acetaminophen (Tylenol) 650 mg PO Q4H PRN PRN Reason: Pain Last Admin: 01/30/18 09:00 Dose: 650 mg Admin: 01/30/18 04:54 Dose: 650 mg Admin: 01/30/18 01:23 Dose: 650 mg Hydralazine HCl (Apresoline) 20 mg IVPUSH Q8H PRN PRN Reason: Hypertension Sodium Chloride (Normal Saline) 1,000 mls @ 75 mls/hr IV ASDIRECTED MOR Last Admin: 01/30/18 04:59 Dose: 75 mls/hr Sodium Chloride (Saline Flush) 10 ml FLUSH ASDIRECTED PRN PRN Reason: Keep Vein Open Last Admin: 01/29/18 22:46 Dose: 10 ml Admin: 01/29/18 22:25 Dose: 10 ml Sodium Chloride (Saline Flush) 10 ml FLUSH ASDIRECTED PRN PRN Reason: Keep Vein Open Stop: 01/30/18 16:00 Assessment/Plan Comment:: I/P: Acute: Head Abrasion, Posterior Scalp -2/2 Fall -Head CT negative -No neurological deficits, physical exam unremarkable -Pt currently stable -Continue supportive care -Monitor Chest Pain, left breast -likely 2/2 fall, musculoskeletal in nature: 5/ with movement and TTP only -Troponin negative -CXR and CT Chest negative for acute abnormalities--> there are multiple old healed left upper rib fractures, most likely from a previous fall. -EKG negative -Pain management with Tylenol -Defer to PCP to f/u Sacral Fracture, stable -Some pain with sitting -Clinically stale, physical exam unremarkable -Able to ambulate with walker -CT pelvis showed distal sacral fracture -Pain management with Tylenol -Discussed with Dr. Ashraf- he reviewed the CT and confirms it is stable. Would like to see her for f/u in 2 weeks in clinic. Resolved: Orthostatic Hypotension, improved to resolved - Lightheaded and nauseous after getting up to go to the bathroom in the ER - Systolic BP dropped from 170s to 90s in the ER - CT chest, abdomen and pelvis negative for intrathoracic or intra-abdominal bleed - Monitor - Continue NS fluid Hypomagnesium, improved to resolved -Mg 1.7 -Mg supplement given -Monitor Chronic: HTN HLD Macular degeneration Osteoarthritis Osteoporosis Anxiety Depression Stroke Hypothyroidism Vertigo Falls Plan: She remains stable and continues to improve clinically Transfered to medical floor for observation Other orders as indicated above DVT prophylaxis: VANESSA edge Routine labs Continue PT/OT Ambulated as tolerated Code Status: Full code; PCP: Ana Granado Most likely D/C later today
--- NOTE | 2018-01-30 14:58 | PCM.DCSUM1 ---
Discharge Summary - Hospital Course HPI Initial Comments: 87-year-old female is brought in by [facility] ambulance service for evaluation and treatment of injuries sustained from a fall. Reportedly the patient had just got back from [place]. She was walking with a walker. States that the wind picked up and knocked her over. She is unsure what she hit her head on. Very likely she lost consciousness. She has a wound to her posterior scalp. She also complains of some soreness to her neck and pain to her jaw. She is also complains of pain to the left side of her breast. No chest pain, shortness of breath, abdominal pain, lightheadedness, dizziness, nausea or vomiting. No pain to the extremities. Patient is not on any blood thinners. - Discharge Data Discharge Date: 01/30/18 (ADMIT 01/29/18) Discharge Disposition: Home, Self-Care 01 Condition: Good - Discharge Diagnosis/Problem(s) (1) Fall SNOMED Code(s): 6422904, 515099513 ICD Code: W19.XXXA - UNSPECIFIED FALL, INITIAL ENCOUNTER Status: Acute Priority: High Current Visit: Yes Qualifiers: Encounter type: initial encounter Qualified Code(s): W19.XXXA - Unspecified fall, initial encounter (2) Left rib fracture SNOMED Code(s): 34684925 ICD Code: S22.32XA - FRACTURE OF ONE RIB, LEFT SIDE, INIT FOR CLOS FX Status: Chronic Priority: Low Current Visit: No Qualifiers: Encounter type: sequela Rib fracture type: multiple ribs Fracture type: closed Qualified Code(s): S22.42XS - Multiple fractures of ribs, left side, sequela (3) Vertigo SNOMED Code(s): 458501779 ICD Code: R42 - DIZZINESS AND GIDDINESS Status: Acute Priority: Low Current Visit: No (4) Sacral fracture SNOMED Code(s): 718079029 ICD Code: S32.10XA - UNSP FRACTURE OF SACRUM, INIT ENCNTR FOR CLOSED FRACTURE Status: Acute Priority: Medium Current Visit: Yes Qualifiers: Encounter type: initial encounter Zone of sacrum fracture: unspecified portion of sacrum Fracture type: closed Qualified Code(s): S32.10XA - Unspecified fracture of sacrum, initial encounter for closed fracture (5) Orthostatic hypotension SNOMED Code(s): 31518011 ICD Code: I95.1 - ORTHOSTATIC HYPOTENSION Status: Acute Priority: Medium Current Visit: Yes - Patient Summary/Data Operative Procedure(s) Performed: none Complications: none Consults: Consultations 01/30/18 00:56 Consult to Physical Therapy [PT Evaluation and Treatment] [CONS] Routine 01/30/18 00:57 Consult to Occupational Therapy [OT Evaluation and Treatment] [CONS] Routine Labs Pending at D/C: none Recommended Follow-up Testing/Procedures: Follow up with PCP in 7-10 days Follow up with Dr. Ashraf in 2 weeks for sacral fracture Planned Operative Procedure(s) after DC: none Hospital Course: I/P: Acute: Head Abrasion, Posterior Scalp -2/2 Fall -Head CT negative -No neurological deficits, physical exam unremarkable -Pt currently stable -Continue supportive care -Monitor Chest Pain, left breast -likely 2/2 fall, musculoskeletal in nature: /10 with movement and TTP only -Troponin negative: < 0.017--> 0.022 -CXR and CT Chest negative for acute abnormalities--> there are multiple old healed left upper rib fractures, most likely from a previous fall. -EKG negative -Pain management with Tylenol -Defer to PCP to f/u Sacral Fracture, stable -Some pain with sitting -Clinically stale, physical exam unremarkable -Able to ambulate with walker -CT pelvis showed distal sacral fracture -Pain management with Tylenol -Discussed with Dr. Ashraf- he reviewed the CT and confirms it is stable. Would like to see her for f/u in 2 weeks in clinic. Resolved: Orthostatic Hypotension, improved to resolved - Lightheaded and nauseous after getting up to go to the bathroom in the ER - Systolic BP dropped from 170s to 90s in the ER --> 153/78 now, was able to ambulate with PT without dizziness - Orthostatic BPs taken today are negative - CT chest, abdomen and pelvis negative for intrathoracic or intra-abdominal bleed - Monitor - Continue NS fluid--> D/C Hypomagnesium, improved to resolved -Mg 1.7 -Mg supplement given -Monitor Chronic: HTN HLD Macular degeneration Osteoarthritis Osteoporosis Anxiety Depression Stroke Hypothyroidism Vertigo Falls--> continue using walker at home Plan: She remains stable and continues to improve clinically Transfered to medical floor for observation Other orders as indicated above DVT prophylaxis: VANESSA edge Routine labs Continue PT/OT Ambulated as tolerated Code Status: Full code; PCP: Ana Granado D/C today Maira has recovered quite well. She had multiple tests done. So far all have been negative except for a Pelvis CT showed distal sacral fracture and Chest CT showed multiple old healed left upper rib fractures, most likely from a previous fall. Dr. Ashraf was consulted and he confirms the sacral fracture is stable- he will f/u with her in clinic in 2 weeks. She also had some orthostatic hypotension in the ER, but this has since resolved. She has had some left chest pain while here, but we believe it to be musculoskeletal in nature. EKG is negative. Repeat troponins have been negative. CXR and CT chest were negative. She should follow-up with her primary care provider in 7-10 days. She was not discharged home on any new medications. She will be discharged home today. - Patient Instructions Diet: Heart Healthy Diet Activity: As Tolerated Showering/Bathing: May Shower Notify Provider of: Fever, Increased Pain, Nausea and/or Vomiting Other/Special Instructions: Return to ER if increase in dizziness, confusion, or another fall. - Discharge Plan Home Medications: Home Meds Levothyroxine 75 mcg PO QAM 06/13/14 [History] Losartan Potassium 100 mg PO BEDTIME 06/13/14 [History] Rosuvastatin [Crestor] 5 mg PO DAILY 06/13/14 [History] Sertraline HCl [Zoloft] 50 mg PO DAILY 06/13/14 [History] Verapamil HCl [Verapamil ER] 240 mg PO DAILY 06/13/14 [History] guanFACINE 1 mg PO BEDTIME 06/13/14 [History] hydrALAZINE [Apresoline] 10 mg PO Q12HR 06/13/14 [History] Cholecalciferol (Vitamin D3) [Vitamin D3] 5,000 units PO DAILY 05/29/15 [History ] Multivit-Min/FA/Lycopene/Lut [Certavite Sr-Antioxidant Tab] 1 tab PO BID [History] Omeprazole 20 mg PO DAILY 05/29/15 [History] Acetaminophen [Tylenol] 500 mg PO DAILY PRN 01/29/18 [History] Latanoprost [Xalatan 0.005% Ophth Soln] 1 drop TOP BEDTIME 01/29/18 [History] Meclizine [Antivert] 25 mg PO DAILY PRN 01/29/18 [History] Multivitamin [One Daily] 1 tab PO DAILY 01/29/18 [History] Polyethylene Glycol 3350 [MiraLAX] 17 gram PO DAILY 01/29/18 [History] Spironolactone 50 mg PO DAILY 01/29/18 [History] Tetrahydrozoline HCl 1 drop TOP BEDTIME 01/29/18 [History] Patient Handouts: Vertigo, [id number], Dizziness, [id number], Rib Fracture , [id number], Hematoma, [id number] Referrals: Ana Granado MD [Primary Care Provider] - 02/13/18 2:00 pm (Please follow up with Ana Granado on MondayFebruary 13 at 1400. Please follow-up with your doctor and ask about outpatient physical therapy ( this was recommended by therapists at the hospital).) Pratik Ashraf MD [Physician] - 02/13/18 11:30 am (Please follow up with Dr. Ashraf on MondayFebruary 13 at 1130.) - Discharge Summary/Plan Comment DC Time >30 min.: Yes (40) - General Info Date of Service: 01/30/18 Admission Dx/Problem (Free Text: Admission Diagnosis/Problem Admission Diagnosis/Problem Fall Functional Status: Reports: Pain Controlled, Tolerating Diet, Ambulating, Urinating - Review of Systems General: Reports: No Symptoms. Denies: Fever, Chills HEENT: Reports: No Symptoms. Denies: Headaches Pulmonary: Reports: No Symptoms. Denies: Shortness of Breath, Cough, Wheezing Cardiovascular: Reports: Chest Pain (left chest pain, around the breast, 5/10 with movement and palpation only) Gastrointestinal: Reports: No Symptoms. Denies: Abdominal Pain, Diarrhea, Nausea, Vomiting Genitourinary: Reports: No Symptoms. Denies: Dysuria, Frequency, Burning Musculoskeletal: Reports: Other (Sacral pain- when sitting) Skin: Reports: No Symptoms Neurological: Reports: No Symptoms Psychiatric: Reports: No Symptoms - Patient Data Vitals - Most Recent: Last Vital Signs Temp 98.4 F 01/30/18 08:43 Pulse 84 01/30/18 08:43 Resp 18 01/30/18 08:43 BP 153/78 H 01/30/18 08:43 Pulse Ox 90 L 01/30/18 08:43 Orthostatic Blood Pressure [ 137/71 Standing] Orthostatic Blood Pressure [ 148/89 Sitting] Orthostatic Blood Pressure [ 142/84 Supine] Weight - Most Recent: 159 lb 11.2 oz I&O - Last 24 hours: Intake & Output 01/29/18 01/30/18 01/30/18 22:59 06:59 14:59 Intake Total 350 822 320 Output Total 200 Balance 350 622 320 Lab Results - Last 24 hrs: Laboratory Results - last 24 hr 01/29/18 01/29/18 01/29/18 Range/Units 19:50 19:50 19:50 WBC 14.47 H (3.98-10.04) K/mm3 RBC 3.87 L (3.98-5.22) M/mm3 Hgb 12.1 (11.2-15.7) gm/L Hct 36.9 (34.1-44.9) % MCV 95.3 H (79.4-94.8) fl MCH 31.3 (25.6-32.2) pg MCHC 32.8 (32.2-35.5) g/dl RDW Std Deviation 44.0 (36.4-46.3) fL Plt Count 198 (182-369) K/mm3 MPV 9.7 (9.4-12.3) fl Neut % (Auto) 88.4 H (34.0-71.1) % Lymph % (Auto) 4.1 L (19.3-51.7) % [place] % (Auto) 6.6 (4.7-12.5) % Eos % (Auto) 0.5 L (0.7-5.8) Baso % (Auto) 0.1 (0.1-1.2) % Neut # (Auto) 12.79 H (1.56-6.13) K/mm3 Lymph # (Auto) 0.59 L (1.18-3.74) K/mm3 [place] # (Auto) 0.96 H (0.24-0.36) K/mm3 Eos # (Auto) 0.07 (0.04-0.36) K/mm3 Baso # (Auto) 0.01 (0.01-0.08) K/mm3 Manual Slide Review Abnormal smear PT 10.5 (9.5-12.1) SECONDS INR 0.96 APTT 27 (24-31) SECONDS Sodium 137 (136-145) mEq/L Potassium 4.4 (3.5-5.1) mEq/L Chloride 102 (98-107) mEq/L Carbon Dioxide 23 (21-32) mEq/L Anion Gap 16.4 H (5-15) BUN 28 H (7-18) mg/dL Creatinine 1.2 H (0.55-1.02) mg/dL Est Cr Clr Drug Dosing 25.63 mL/min Estimated GFR (MDRD) 42 (>60) mL/min BUN/Creatinine Ratio 23.3 H (14-18) Glucose 105 (83-115) mg/dL Calcium 10.1 (8.5-10.1) mg/dL Magnesium (1.8-2.4) mg/dl Total Bilirubin 0.4 (0.2-1.0) mg/dL AST 20 (15-37) U/L ALT 22 (14-59) U/L Alkaline Phosphatase 81 (46-116) U/L Troponin I (0.00-0.056) ng/mL NT-Pro-B Natriuret Pep (0-450) pg/mL Total Protein 7.9 (6.4-8.2) g/dl Albumin 4.1 (3.4-5.0) g/dl Globulin 3.8 gm/dL Albumin/Globulin Ratio 1.1 (1-2) MRSA (PCR) 01/29/18 01/29/18 01/30/18 Range/Units 22:18 22:18 05:03 WBC (3.98-10.04) K/mm3 RBC (3.98-5.22) M/mm3 Hgb 11.9 (11.2-15.7) gm/L Hct 36.7 (34.1-44.9) % MCV (79.4-94.8) fl MCH (25.6-32.2) pg MCHC (32.2-35.5) g/dl RDW Std Deviation (36.4-46.3) fL Plt Count (182-369) K/mm3 MPV (9.4-12.3) fl Neut % (Auto) (34.0-71.1) % Lymph % (Auto) (19.3-51.7) % [place] % (Auto) (4.7-12.5) % Eos % (Auto) (0.7-5.8) Baso % (Auto) (0.1-1.2) % Neut # (Auto) (1.56-6.13) K/mm3 Lymph # (Auto) (1.18-3.74) K/mm3 [place] # (Auto) (0.24-0.36) K/mm3 Eos # (Auto) (0.04-0.36) K/mm3 Baso # (Auto) (0.01-0.08) K/mm3 Manual Slide Review PT (9.5-12.1) SECONDS INR APTT (24-31) SECONDS Sodium (136-145) mEq/L Potassium (3.5-5.1) mEq/L Chloride (98-107) mEq/L Carbon Dioxide (21-32) mEq/L Anion Gap (5-15) BUN (7-18) mg/dL Creatinine (0.55-1.02) mg/dL Est Cr Clr Drug Dosing mL/min Estimated GFR (MDRD) (>60) mL/min BUN/Creatinine Ratio (14-18) Glucose (83-115) mg/dL Calcium (8.5-10.1) mg/dL Magnesium (1.8-2.4) mg/dl Total Bilirubin (0.2-1.0) mg/dL AST (15-37) U/L ALT (14-59) U/L Alkaline Phosphatase (46-116) U/L Troponin I < 0.017 (0.00-0.056) ng/mL NT-Pro-B Natriuret Pep (0-450) pg/mL Total Protein (6.4-8.2) g/dl Albumin (3.4-5.0) g/dl Globulin gm/dL Albumin/Globulin Ratio (1-2) MRSA (PCR) Negative 01/30/18 01/30/18 01/30/18 Range/Units 05:13 05:13 05:13 WBC 10.32 H (3.98-10.04) K/mm3 RBC 3.36 L (3.98-5.22) M/mm3 Hgb 10.6 L (11.2-15.7) gm/L Hct 32.0 L (34.1-44.9) % MCV 95.2 H (79.4-94.8) fl MCH 31.5 (25.6-32.2) pg MCHC 33.1 (32.2-35.5) g/dl RDW Std Deviation 44.5 (36.4-46.3) fL Plt Count 184 (182-369) K/mm3 MPV 10.1 (9.4-12.3) fl Neut % (Auto) 88.6 H (34.0-71.1) % Lymph % (Auto) 4.6 L (19.3-51.7) % [place] % (Auto) 6.5 (4.7-12.5) % Eos % (Auto) 0 L (0.7-5.8) Baso % (Auto) 0.1 (0.1-1.2) % Neut # (Auto) 9.15 H (1.56-6.13) K/mm3 Lymph # (Auto) 0.47 L (1.18-3.74) K/mm3 [place] # (Auto) 0.67 H (0.24-0.36) K/mm3 Eos # (Auto) 0.00 L (0.04-0.36) K/mm3 Baso # (Auto) 0.01 (0.01-0.08) K/mm3 Manual Slide Review Abnormal smear PT (9.5-12.1) SECONDS INR APTT (24-31) SECONDS Sodium (136-145) mEq/L Potassium (3.5-5.1) mEq/L Chloride (98-107) mEq/L Carbon Dioxide (21-32) mEq/L Anion Gap (5-15) BUN (7-18) mg/dL Creatinine (0.55-1.02) mg/dL Est Cr Clr Drug Dosing mL/min Estimated GFR (MDRD) (>60) mL/min BUN/Creatinine Ratio (14-18) Glucose (83-115) mg/dL Calcium (8.5-10.1) mg/dL Magnesium 1.7 L (1.8-2.4) mg/dl Total Bilirubin (0.2-1.0) mg/dL AST (15-37) U/L ALT (14-59) U/L Alkaline Phosphatase (46-116) U/L Troponin I 0.022 (0.00-0.056) ng/mL NT-Pro-B Natriuret Pep 769 H (0-450) pg/mL Total Protein (6.4-8.2) g/dl Albumin (3.4-5.0) g/dl Globulin gm/dL Albumin/Globulin Ratio (1-2) MRSA (PCR) Med Orders - Current: Current Medications Acetaminophen (Tylenol) 650 mg PO Q4H PRN PRN Reason: Pain Last Admin: 01/30/18 09:00 Dose: 650 mg Hydralazine HCl (Apresoline) 20 mg IVPUSH Q8H PRN PRN Reason: Hypertension Sodium Chloride (Normal Saline) 1,000 mls @ 75 mls/hr IV ASDIRECTED MOR Last Admin: 01/30/18 04:59 Dose: 75 mls/hr Sodium Chloride (Saline Flush) 10 ml FLUSH ASDIRECTED PRN PRN Reason: Keep Vein Open Last Admin: 01/29/18 22:46 Dose: 10 ml Sodium Chloride (Saline Flush) 10 ml FLUSH ASDIRECTED PRN PRN Reason: Keep Vein Open Stop: 01/30/18 16:00 Discontinued Medications Acetaminophen (Tylenol) 650 mg PO NOW ONE Stop: 01/29/18 19:31 Last Admin: 01/29/18 19:37 Dose: 650 mg Sodium Chloride (Normal Saline) 250 mls @ 999 mls/hr IV ONETIME ONE Stop: 01/29/18 22:28 Last Admin: 01/29/18 22:25 Dose: 999 mls/hr Sodium Chloride (Normal Saline) 100 mls @ 60 mls/hr IV ASDIRECTED MOR Last Admin: 01/29/18 22:46 Dose: 60 mls/hr Sodium Chloride (Normal Saline) 1,000 mls @ 75 mls/hr IV ASDIRECTED MOR Sodium Chloride (Normal Saline) 500 mls @ 999 mls/hr IV .BOLUS ONE Stop: 01/30/18 01:29 Last Admin: 01/30/18 01:25 Dose: 999 mls/hr Magnesium Sulfate 2 gm/ Premix 50 mls @ 25 mls/hr IV ONETIME ONE Stop: 04/17/18 09:43 Last Admin: 01/30/18 09:00 Dose: 25 mls/hr Iopamidol (Isovue-300 (61%)) 100 ml IVPUSH ONETIME ONE Stop: 01/29/18 22:28 Last Admin: 01/29/18 22:45 Dose: 100 ml Ondansetron HCl (Zofran Odt) 4 mg PO ONETIME ONE Stop: 01/29/18 22:01 Last Admin: 01/29/18 22:06 Dose: 4 mg - Exam Quality Assessment: Reports: DVT Prophylaxis. Denies: Supplemental Oxygen General: Reports: Alert, Oriented HEENT: Reports: Pupils Equal, Pupils Reactive, EOMI, Mucous Membr. Moist/[place]: Reports: Supple Lungs: Reports: Clear to Auscultation, Normal Respiratory Effort Cardiovascular: Reports: Regular Rate, Regular Rhythm GI/Abdominal Exam: Normal Bowel Sounds, Soft, Non-Tender, No Organomegaly, No Distention, No Abnormal Bruit, No Mass, Pelvis Stable (Female) Exam: Deferred Rectal (Female) Exam: Deferred Back Exam: Reports: Normal Inspection, Full Range of Motion Extremities: Normal Inspection, Normal Range of Motion, Non-Tender, No Pedal Edema, Normal Capillary Refill Skin: Reports: Warm, Dry, Intact Wound/Incisions: Reports: Healing Well (abrasion to posterior scalp s/p fall) Neurological: Reports: No New Focal Deficit Psy/Mental Status: Reports: Alert, Normal Affect, Normal Mood
== END 2018-01-30 15:13 | disposition home or self-care (01) ==
LOC: SUPCPDRO 18:21 → JD.ED 18:21 → JD.MS 01-30 00:23
PROVIDERS: ADMIT Internal Medicine Cardiovascular Disease; ATTEND Internal Medicine Cardiovascular Disease
DX: S32.10XA Unspecified fracture of sacrum, initial encounter for closed fracture (principal); S22.42XA Multiple fractures of ribs, left side, initial encounter for closed fracture; S00.01XA Abrasion of scalp, initial encounter; R42 Dizziness and giddiness; I95.1 Orthostatic hypotension; E83.42 Hypomagnesemia; I10 Essential (primary) hypertension; E78.5 Hyperlipidemia, unspecified; H35.30 Unspecified macular degeneration; M19.90 Unspecified osteoarthritis, unspecified site; M81.0 Age-related osteoporosis without current pathological fracture; F41.9 Anxiety disorder, unspecified; F32.9 Major depressive disorder, single episode, unspecified; W19.XXXA Unspecified fall, initial encounter; E78.00 Pure hypercholesterolemia, unspecified; Z86.73 Personal history of transient ischemic attack (TIA), and cerebral infarction without residual deficits; E03.9 Hypothyroidism, unspecified; Z79.899 Other long term (current) drug therapy; Z91.09 Other allergy status, other than to drugs and biological substances; Z85.828 Personal history of other malignant neoplasm of skin
CPT/HCPCS: 36415; 70450; 70486; 71045; 71260; 72125; 74177; 80053; 83735; 83880; 84484; 85014; 85018; 85025; 85610; 85730; 87641; 93005; 96361; 96365; 96366; 97161; 97165; 97530; 99285; A9270; G0378; J7030; J7040; J7050; Q9967; 96360; 99236; 99284; J3475

== ENCOUNTER 2019-01-28 08:23 | Inpatient (IN) | payer MEDICARE, OTHER ==
[2019-01-28] MEDS ORDERED: Sodium Chloride 0.9% 1,000 ML IV SCH (08:45)
[2019-01-28] MEDS: Sodium Chloride 0.9% 10 ML Syringe FLUSH PRN ×2 (08:46→09:13)
--- NOTE | 2019-01-28 09:00 | EDM.PDOC ---
ED HPI GENERAL MEDICAL PROBLEM - General Chief Complaint: Lower Extremity Injury/Pain Stated Complaint: [facility] POSS BROKEN ANKLE Time Seen by Provider: 01/28/19 08:28 Source of Information: Reports: Patient, EMS History Limitations: Reports: No Limitations - History of Present Illness INITIAL COMMENTS - FREE TEXT/NARRATIVE: The patient presents by [facility] for right ankle injury. She is a resident of the [facility] in [place]. She went to the bathroom this morning and she slipped and fell and hurt her right ankle. She has edema and ecchymosis to her right ankle. She is confused about the past few days. She is alert and orientated X 2. She is normally very sharp. She has a low grade temp of 99.3. She does not think she hit her head. She has mild neck pain. She has no chest pain, shortness of breath or cough. She has no abdominal pain, nausea, vomiting, diarrhea or dysuria. She has no hip pain or arm pain. Onset: Sudden Duration: Hour(s): Location: Reports: Lower Extremity, Right (ankle) Quality: Reports: Sharp Severity: Moderate Improves with: Reports: Immobilization Worsens with: Reports: Movement Context: Reports: Activity Associated Symptoms: Reports: No Other Symptoms Right Ankle Pain Score (Numeric/FACES): 8 - Related Data Allergies Allergy/AdvReac Type Severity Reaction Status Date / Time hydralazine Allergy Cannot Verified 01/28/19 08:27 Remember hydrochlorothiazide Allergy Cannot Verified 01/28/19 08:27 Remember pollen extracts Allergy Sneezing Verified 01/30/18 01:32 simvastatin [From Zocor] Allergy Cannot Verified 01/28/19 08:27 Remember dust Allergy Cough Uncoded 05/29/15 15:01 Home Meds: Home Meds Levothyroxine 75 mcg PO QAM 06/13/14 [History] Losartan Potassium 100 mg PO BEDTIME 06/13/14 [History] Rosuvastatin [Crestor] 5 mg PO DAILY 06/13/14 [History] Sertraline HCl [Zoloft] 50 mg PO DAILY 06/13/14 [History] Verapamil HCl [Verapamil ER] 240 mg PO DAILY 06/13/14 [History] hydrALAZINE [Apresoline] 10 mg PO Q12HR 06/13/14 [History] Cholecalciferol (Vitamin D3) [Vitamin D3] 5,000 units PO DAILY 05/29/15 [History ] Multivit-Min/FA/Lycopene/Lut [Certavite Sr-Antioxidant Tab] 1 tab PO BID [History] Acetaminophen [Tylenol] 500 mg PO DAILY PRN 01/29/18 [History] Meclizine [Antivert] 12.5 mg PO BID PRN 01/29/18 [History] Multivitamin [One Daily] 1 tab PO DAILY 01/29/18 [History] Polyethylene Glycol 3350 [MiraLAX] 17 gram PO DAILY 01/29/18 [History] Spironolactone 50 mg PO DAILY 01/29/18 [History] Past Medical History HEENT History: Reports: Macular Degeneration Cardiovascular History: Reports: High Cholesterol, Hypertension Respiratory History: Reports: None Genitourinary History: Reports: UTI, Recurrent, Other (See Below) Other Genitourinary History: bladder dropped-unable to have it repaired due to age Musculoskeletal History: Reports: Osteoarthritis, Osteoporosis Neurological History: Reports: Other (See Below) Other Neuro History: CT head revealed a stroke in the past Psychiatric History: Reports: Anxiety, Depression Endocrine/Metabolic History: Reports: Hypothyroidism Hematologic History: Reports: Anemia Immunologic History: Reports: None Oncologic (Cancer) History: Reports: Other (See Below) Other Oncologic History: skin cancer Dermatologic History: Reports: None - Past Surgical History HEENT Surgical History: Reports: Cataract Surgery GI Surgical History: Reports: Appendectomy, Cholecystectomy Female Surgical History: Reports: Hysterectomy Social & Family History - Family History Endocrine/Metabolic: Reports: Diabetes, type II - Tobacco Use Smoking Status *Q: Never Smoker - Caffeine Use Caffeine Use: Reports: Coffee Caffeine Use Comment: Drinks about a cup of coffee each morning - Recreational Drug Use Recreational Drug Use: No Review of Systems - Review of Systems Review Of Systems: See Below Constitutional: Reports: Fever. Denies: Chills Eyes: Reports: No Symptoms Ears: Reports: No Symptoms Nose: Reports: No Symptoms Mouth/Throat: Reports: No Symptoms Respiratory: Reports: No Symptoms Cardiovascular: Reports: No Symptoms GI/Abdominal: Reports: No Symptoms Genitourinary: Reports: No Symptoms Musculoskeletal: Reports: No Symptoms Neurological: Reports: Confusion. Denies: Headache ED EXAM, GENERAL - Physical Exam Exam: See Below Exam Limited By: No Limitations General Appearance: Alert, No Apparent Distress Ears: Normal External Exam Nose: Normal Inspection Head: Atraumatic, Normocephalic Neck: Normal Inspection Respiratory/Chest: No Respiratory Distress, Lungs Clear, Normal Breath Sounds Cardiovascular: Regular Rate, Rhythm, No Edema, No Murmur GI/Abdominal: Soft, Non-Tender, No Organomegaly, No Mass Back Exam: Normal Inspection Extremities: Other (Moderate edema and ecchymosis to the right ankle. Good sensation and pulses distally) EKG INTERPRETATION EKG Date: 01/28/19 Time: 09:42 Rhythm: NSR Rate (Beats/Min): 80 [place]: Normal P-Wave: Present QRS: Normal ST-T: Normal QT: Normal Course - Vital Signs Last Recorded V/S: Last Vital Signs Temp 99.3 F 01/28/19 08:24 Pulse 88 01/28/19 08:24 Resp 17 01/28/19 08:24 BP 153/71 H 01/28/19 08:24 Pulse Ox 94 L 01/28/19 08:24 - Orders/Labs/Meds Orders: Active Orders 24 hr Category Date Time Status Cardiac Monitoring [RC] . DIRECTED Care 01/28/19 08:33 Active EKG Documentation Completion [RC] STAT Care 01/28/19 08:34 Active Peripheral IV Care [RC] . DIRECTED Care 01/28/19 08:34 Active CULTURE BLOOD [BC] Stat Lab 01/28/19 08:44 Received CULTURE BLOOD [BC] Stat Lab 01/28/19 09:00 Received Sodium Chloride 0.9% [Normal Saline] 1,000 ml Med 01/28/19 08:45 Active IV ASDIRECTED Sodium Chloride 0.9% [Saline Flush] Med 01/28/19 08:33 Active 10 ml FLUSH ASDIRECTED PRN Blood Culture x2 Reflex Set [OM.PC] Stat Oth 01/28/19 08:35 Ordered Durable Medical Equipment for Discharge [DME for Oth 01/28/19 12:37 Ordered Discharge] [COMM] Stat Peripheral IV Insertion Adult [OM.PC] Stat Oth 01/28/19 08:33 Ordered Medication Orders Sodium Chloride (Normal Saline) 1,000 mls @ 125 mls/hr IV ASDIRECTED [facility] Last Admin: 01/28/19 09:13 Dose: 125 mls/hr Sodium Chloride (Saline Flush) 10 ml FLUSH ASDIRECTED PRN PRN Reason: Keep Vein Open Last Admin: 01/28/19 09:13 Dose: 10 ml Admin: 01/28/19 08:46 Dose: 10 ml Labs: Laboratory Tests 01/28/19 01/28/19 01/28/19 Range/Units 08:44 08:44 08:51 WBC 6.22 (3.98-10.04) K/mm3 RBC 3.29 L (3.98-5.22) M/mm3 Hgb 9.5 L (11.2-15.7) gm/L Hct 29.8 L (34.1-44.9) % MCV 90.6 (79.4-94.8) fl MCH 28.9 (25.6-32.2) pg MCHC 31.9 L (32.2-35.5) g/dl RDW Std Deviation 43.2 (36.4-46.3) fL Plt Count 230 (182-369) K/mm3 MPV 10.1 (9.4-12.3) fl Neut % (Auto) 75.9 H (34.0-71.1) % Lymph % (Auto) 12.5 L (19.3-51.7) % [place] % (Auto) 10.1 (4.7-12.5) % Eos % (Auto) 1.3 (0.7-5.8) Baso % (Auto) 0.2 (0.1-1.2) % Neut # (Auto) 4.72 (1.56-6.13) K/mm3 Lymph # (Auto) 0.78 L (1.18-3.74) K/mm3 [place] # (Auto) 0.63 H (0.24-0.36) K/mm3 Eos # (Auto) 0.08 (0.04-0.36) K/mm3 Baso # (Auto) 0.01 (0.01-0.08) K/mm3 Sodium 137 (136-145) mEq/L Potassium 4.3 (3.5-5.1) mEq/L Chloride 104 (98-107) mEq/L Carbon Dioxide 22 (21-32) mEq/L Anion Gap 15.3 H (5-15) BUN 21 H (7-18) mg/dL Creatinine 1.2 H (0.55-1.02) mg/dL Est Cr Clr Drug Dosing 25.14 mL/min Estimated GFR (MDRD) 42 (>60) mL/min BUN/Creatinine Ratio 17.5 (14-18) Glucose 102 (83-115) mg/dL Lactic Acid 1.2 (0.4-2.0) mmol/L Calcium 9.9 (8.5-10.1) mg/dL Total Bilirubin 0.4 (0.2-1.0) mg/dL AST 17 (15-37) U/L ALT 19 (14-59) U/L Alkaline Phosphatase 67 (46-116) U/L Troponin I < 0.017 (0.00-0.056) ng/mL C-Reactive Protein < 0.2 (<1.0) mg/dL Total Protein 7.2 (6.4-8.2) g/dl Albumin 3.7 (3.4-5.0) g/dl Globulin 3.5 gm/dL Albumin/Globulin Ratio 1.1 (1-2) Urine Color (Yellow) Urine Appearance (Clear) Urine pH (5.0-8.0) Ur Specific [place] (1.005-1.030) Urine Protein (Negative) Urine Glucose (UA) (Negative) Urine Ketones (Negative) Urine Occult Blood (Negative) Urine Nitrite (Negative) Urine Bilirubin (Negative) Urine Urobilinogen (0.2-1.0) Ur Leukocyte Esterase (Negative) Urine RBC (0-5) /hpf Urine WBC (0-5) /hpf Ur Epithelial Cells (0-5) /hpf Urine Bacteria (FEW) /hpf Urine Mucus (FEW) /hpf 01/28/19 Range/Units 09:20 WBC (3.98-10.04) K/mm3 RBC (3.98-5.22) M/mm3 Hgb (11.2-15.7) gm/L Hct (34.1-44.9) % MCV (79.4-94.8) fl MCH (25.6-32.2) pg MCHC (32.2-35.5) g/dl RDW Std Deviation (36.4-46.3) fL Plt Count (182-369) K/mm3 MPV (9.4-12.3) fl Neut % (Auto) (34.0-71.1) % Lymph % (Auto) (19.3-51.7) % [place] % (Auto) (4.7-12.5) % Eos % (Auto) (0.7-5.8) Baso % (Auto) (0.1-1.2) % Neut # (Auto) (1.56-6.13) K/mm3 Lymph # (Auto) (1.18-3.74) K/mm3 [place] # (Auto) (0.24-0.36) K/mm3 Eos # (Auto) (0.04-0.36) K/mm3 Baso # (Auto) (0.01-0.08) K/mm3 Sodium (136-145) mEq/L Potassium (3.5-5.1) mEq/L Chloride (98-107) mEq/L Carbon Dioxide (21-32) mEq/L Anion Gap (5-15) BUN (7-18) mg/dL Creatinine (0.55-1.02) mg/dL Est Cr Clr Drug Dosing mL/min Estimated GFR (MDRD) (>60) mL/min BUN/Creatinine Ratio (14-18) Glucose (83-115) mg/dL Lactic Acid (0.4-2.0) mmol/L Calcium (8.5-10.1) mg/dL Total Bilirubin (0.2-1.0) mg/dL AST (15-37) U/L ALT (14-59) U/L Alkaline Phosphatase (46-116) U/L Troponin I (0.00-0.056) ng/mL C-Reactive Protein (<1.0) mg/dL Total Protein (6.4-8.2) g/dl Albumin (3.4-5.0) g/dl Globulin gm/dL Albumin/Globulin Ratio (1-2) Urine Color Yellow (Yellow) Urine Appearance Slt cloudy H (Clear) Urine pH 6.0 (5.0-8.0) Ur Specific [place] 1.020 (1.005-1.030) Urine Protein Negative (Negative) Urine Glucose (UA) Negative (Negative) Urine Ketones Negative (Negative) Urine Occult Blood Trace-intact H (Negative) Urine Nitrite Negative (Negative) Urine Bilirubin Negative (Negative) Urine Urobilinogen 0.2 (0.2-1.0) Ur Leukocyte Esterase Negative (Negative) Urine RBC 0-5 (0-5) /hpf Urine WBC Not seen (0-5) /hpf Ur Epithelial Cells Not seen (0-5) /hpf Urine Bacteria Few H (FEW) /hpf Urine Mucus Not seen (FEW) /hpf Meds: Medications Generic Name Dose Route Start Last Admin Trade Name Freq PRN Reason Stop Dose Admin Sodium Chloride 1,000 mls @ 125 mls/hr 01/28/19 08:45 01/28/19 09:13 Normal Saline IV 125 mls/hr ASDIRECTED [facility] Administration Sodium Chloride 10 ml 01/28/19 08:33 01/28/19 09:13 Saline Flush FLUSH 10 ml ASDIRECTED PRN Administration Keep Vein Open Discontinued Medications Generic Name Dose Route Start Last Admin Trade Name Freq PRN Reason Stop Dose Admin Ketorolac Tromethamine 15 mg 01/28/19 11:32 01/28/19 11:36 Toradol IVPUSH 01/28/19 11:33 15 mg ONETIME ONE Administration - Re-Assessments/Exams Free Text/Narrative Re-Assessment/Exam: 01/28/19 09:13 I ordered an IV NS at 125mL/hr, EKG, CXR, CT of the head, labs, UA and an x-ray of her ankle. 01/28/19 12:38 Her EKG shows a NSR with no acute changes. Her CXR looks good. The CT of her head shows senescent changes and nothing acute. Her Hgb is low at 9.5. Her creatinine was a little elevated at 1.2. Her troponin is negative. Her CRP was normal. Her UA shows no UTI. Her ankle x-ray shows a bimalleular fracture. I called Dr Ashraf and he will take a look at the patient but the surgery does not need to be done in an emergent basis. I cannot send her home like this. I will need to admit her. I called Dr Siddiqui and he agreed to the admission. Departure - Departure Time of Disposition: 12:45 Disposition: Admitted As Inpatient 65 Condition: Fair Clinical Impression: Acute confusion Fall Qualifiers: Encounter type: initial encounter Qualified Code(s): W19.XXXA - Unspecified fall, initial encounter Bimalleolar fracture of right ankle Qualifiers: Encounter type: initial encounter Fracture type: closed Qualified Code(s): S82.841A - Displaced bimalleolar fracture of right lower leg, initial encounter for closed fracture Anemia Qualifiers: Anemia type: other cause Other causes of anemia: other cause, not classified Qualified Code(s): D64.89 - Other specified anemias - Discharge Information Forms: ED Department Discharge - My Orders Last 24 Hours: My Active Orders 01/28/19 08:33 Cardiac Monitoring [RC] . DIRECTED Sodium Chloride 0.9% [Saline Flush] 10 ml FLUSH ASDIRECTED PRN Peripheral IV Insertion Adult [OM.PC] Stat 01/28/19 08:34 EKG Documentation Completion [RC] STAT Peripheral IV Care [RC] . DIRECTED 01/28/19 08:35 Blood Culture x2 Reflex Set [OM.PC] Stat 01/28/19 08:44 CULTURE BLOOD [BC] Stat 01/28/19 08:45 Sodium Chloride 0.9% [Normal Saline] 1,000 ml IV ASDIRECTED 01/28/19 09:00 CULTURE BLOOD [BC] Stat 01/28/19 12:37 Durable Medical Equipment for Discharge [DME for Discharge] [COMM] Stat - Assessment/Plan Last 24 Hours: My Active Orders 01/28/19 08:33 Cardiac Monitoring [RC] . DIRECTED Sodium Chloride 0.9% [Saline Flush] 10 ml FLUSH ASDIRECTED PRN Peripheral IV Insertion Adult [OM.PC] Stat 01/28/19 08:34 EKG Documentation Completion [RC] STAT Peripheral IV Care [RC] . DIRECTED 01/28/19 08:35 Blood Culture x2 Reflex Set [OM.PC] Stat 01/28/19 08:44 CULTURE BLOOD [BC] Stat 01/28/19 08:45 Sodium Chloride 0.9% [Normal Saline] 1,000 ml IV ASDIRECTED 01/28/19 09:00 CULTURE BLOOD [BC] Stat 01/28/19 12:37 Durable Medical Equipment for Discharge [DME for Discharge] [COMM] Stat
--- NOTE | 2019-01-28 09:39 | CT ---
Head CT Technique: Multiple axial sections through the brain were obtained. Intravenous contrast was not utilized. Comparison: Prior head CT study of 01/29/18. Findings: Ventricles along with basal cisterns and sulci over the convexities are moderately prominent. Diminished density is noted within the periventricular and subcortical white matter which is compatible with small vessel ischemic demyelination change. No other abnormal parenchymal densities are seen. No evidence of intracranial hemorrhage. No midline shift or mass effect is seen. Bone window settings were reviewed which show no acute calvarial abnormality. Visualized sinuses are felt to be clear. Impression: 1. Senescent change as noted above. 2. No acute intracranial abnormality is identified. No skull fracture is identified. Diagnostic code #2
--- NOTE | 2019-01-28 10:13 | CR ---
Chest: Portable view of the chest was obtained. Comparison: Prior chest x-ray of 01/29/18. Heart size appears within normal limits for portable technique. Hiatal hernia is noted. Tortuous thoracic aorta is seen. Lungs are clear with no acute parenchymal change. Bony structures are osteopenic but grossly intact. Slight scoliosis is incidentally noted. Impression: 1. Incidental findings. Nothing acute is identified on portable chest x-ray. Diagnostic code #2
--- NOTE | 2019-01-28 10:39 | CR ---
Right ankle: Four views of the right ankle were obtained. Comparison: No prior ankle exam. Mildly displaced fracture is seen within the medial and lateral malleolus. Soft tissue swelling is noted. Bony structures are osteoporotic. Impression: 1. Mildly displaced bimalleolar fracture. 2. Other incidental findings as noted above. Diagnostic code #3
[2019-01-28] MEDS ORDERED: Ketorolac 15 MG/ML SDV IVPUSH ONE (11:32)
[2019-01-28] MEDS ORDERED: Acetaminophen/HYDROcodone 325-5 MG Tab PO PRN (13:50)
[2019-01-28] MEDS ORDERED: Meclizine 12.5 MG Tab PO PRN (14:59)
[2019-01-28] MEDS: Acetaminophen/HYDROcodone 325-5 MG Tab PO PRN ×3 (16:36→23:41)
[2019-01-28] MEDS ORDERED: Carboxymethylcellulose Sodium 1% Ophth Gel 15 ML Bottle EYEBOTH PRN (18:28)
--- NOTE | 2019-01-28 18:30 | PCM.HP ---
H&P History of Present Illness - General Date of Service: 01/28/19 Admit Problem/Dx: Admission Diagnosis/Problem Admission Diagnosis/Problem Fall Source of Information: Patient - History of Present Illness Initial Comments - Free Text/Narative: This 88-year-old female presented to the emergency room via [facility]. Patient is a resident of the [facility]. This morning she got up from bed and went to the bathroom. She states that when she got up she steps slowly because she was concerned about falling. She became progressively weak and fell because her feet when it moved correctly. She had right ankle pain and at the emergency room was found to have a bimalleolar fracture of her right ankle. He was splinted with fiberglass in a posterior short leg splint. She was seen by Dr. Tucker in the emergency room. He felt there was too much swelling at this time and she would undergo surgery in 1 week. Patient was admitted to the hospital because she is unable to return to her home. She requires more care. She is confused about the past few days. Her on January 20, 2019 and tomorrow is his . Patient also states that she has a long history of anemia. It has been going on for several months if not longer. Hemoglobin in January 2018 was 10.6. Patient has also been suffering from intermittent dizziness. She's been on meclizine. She states that this morning she did not have any dizziness prior to falling. In the emergency room she was found to be slightly dehydrated and fluids were started. Right Ankle Pain Score (Numeric/FACES): 8 - Related Data Allergies/Adverse Reactions: Allergies Allergy/AdvReac Type Severity Reaction Status Date / Time hydralazine Allergy Cannot Verified 01/28/19 08:27 Remember hydrochlorothiazide Allergy Cannot Verified 01/28/19 08:27 Remember pollen extracts Allergy Sneezing Verified 01/30/18 01:32 simvastatin [From Zocor] Allergy Cannot Verified 01/28/19 08:27 Remember dust Allergy Cough Uncoded 05/29/15 15:01 Home Medications: Home Meds Levothyroxine 75 mcg PO QAM 06/13/14 [History] Losartan Potassium 100 mg PO BEDTIME 06/13/14 [History] Rosuvastatin [Crestor] 5 mg PO DAILY 06/13/14 [History] Sertraline HCl [Zoloft] 50 mg PO DAILY 06/13/14 [History] Verapamil HCl [Verapamil ER] 240 mg PO DAILY 06/13/14 [History] hydrALAZINE [Apresoline] 10 mg PO Q12HR 06/13/14 [History] Cholecalciferol (Vitamin D3) [Vitamin D3] 5,000 units PO DAILY 05/29/15 [History ] Multivit-Min/FA/Lycopene/Lut [Certavite Sr-Antioxidant Tab] 1 tab PO BID [History] Acetaminophen [Tylenol] 500 mg PO DAILY PRN 01/29/18 [History] Meclizine [Antivert] 12.5 mg PO BID 01/29/18 [History] Multivitamin [One Daily] 1 tab PO DAILY 01/29/18 [History] Polyethylene Glycol 3350 [MiraLAX] 17 gram PO DAILY 01/29/18 [History] Spironolactone 50 mg PO DAILY 01/29/18 [History] Carboxymethylcellulose Sodium [Refresh Tears] 1 drop EYEBOTH DAILY PRN 01/28/19 [History] Ranitidine [Zantac] 150 mcg PO DAILY 01/28/19 [History] Past Medical History HEENT History: Reports: Macular Degeneration Cardiovascular History: Reports: High Cholesterol, Hypertension Respiratory History: Reports: Croup Gastrointestinal History: Reports: Hiatal Hernia Genitourinary History: Reports: UTI, Recurrent, Other (See Below) Other Genitourinary History: bladder dropped-unable to have it repaired due to age [employer] History: Reports: Endometriosis, Musculoskeletal History: Reports: Osteoarthritis, Osteoporosis Neurological History: Reports: CVA, Other (See Below) Other Neuro History: CT head revealed a stroke in the past Psychiatric History: Reports: Anxiety, Depression Endocrine/Metabolic History: Reports: Hypothyroidism Hematologic History: Reports: Anemia Immunologic History: Reports: None Oncologic (Cancer) History: Reports: Other (See Below) Other Oncologic History: basal cell carcinoma skin cancer Dermatologic History: Reports: None - Infectious Disease History Infectious Disease History: Reports: Chicken Pox, Measles, Mumps - Past Surgical History HEENT Surgical History: Reports: Cataract Surgery Cardiovascular Surgical History: Reports: None Respiratory Surgical History: Reports: None GI Surgical History: Reports: Appendectomy, Cholecystectomy Female Surgical History: Reports: Hysterectomy Endocrine Surgical History: Reports: None Neurological Surgical History: Reports: None Musculoskeletal Surgical History: Reports: None Oncologic Surgical History: Reports: Other (See Below) Other Oncologic Surgeries/Procedures: removal of skin cancer Social & Family History - Family History Family Medical History: Noncontributory Endocrine/Metabolic: Reports: Diabetes, type II - Tobacco Use Smoking Status *Q: Never Smoker - Caffeine Use Caffeine Use: Reports: Coffee Caffeine Use Comment: Drinks about a cup of coffee each morning - Alcohol Use Days Per Week of Alcohol Use: 0 - Recreational Drug Use Recreational Drug Use: No H&P Review of Systems - Review of Systems: Review Of Systems: See Below General: Reports: Weakness, Fatigue. Denies: Fever, Chills HEENT: Reports: No Symptoms Pulmonary: Reports: No Symptoms Cardiovascular: Reports: No Symptoms. Denies: Chest Pain, Palpitations, Dyspnea on Exertion Gastrointestinal: Reports: No Symptoms. Denies: Abdominal Pain, Black Stool, Bloody Stool, Constipation, Diarrhea, Hematemesis, Hematochezia, Melena Genitourinary: Reports: No Symptoms. Denies: Dysuria, Frequency, Burning Musculoskeletal: Reports: Joint Pain, Joint Swelling Skin: Reports: No Symptoms. Denies: Cyanosis, Jaundice Psychiatric: Reports: No Symptoms Neurological: Reports: Dizziness. Denies: Confusion, Headache, Numbness Hematologic/Lymphatic: Reports: No Symptoms Immunologic: Reports: No Symptoms Exam - Exam Exam: See Below - Vital Signs Vital Signs: Last Vital Signs Temp 99.3 F 01/28/19 08:24 Pulse 88 01/28/19 08:24 Resp 17 01/28/19 08:24 BP 153/71 H 01/28/19 08:24 Pulse Ox 94 L 01/28/19 08:24 Weight: 151 lb 1.6 oz - Exam Quality Assessment: No: Supplemental Oxygen General: Alert, Oriented HEENT: Conjunctiva Clear, Mucosa Moist & [place], Posterior Pharynx Clear Neck: Supple, Trachea Midline Lungs: Clear to Auscultation, Normal Respiratory Effort Cardiovascular: Regular Rate, Regular Rhythm, Normal S1, Normal S2 GI/Abdominal Exam: Normal Bowel Sounds, Soft, Non-Tender, No Distention (Female) Exam: Normal External Exam Extremities: Other (Right leg in a short leg splint.) Skin: Warm, Dry, Intact Neurological: Cranial Nerves Intact Neuro Extensive - Mental Status: Alert, Oriented x3, Normal Mood/Affect, Normal Cognition Neuro Extensive - Motor, Sensory, Reflexes: CN II-XII Intact - Patient Data Lab Results Last 24 hrs: Laboratory Results - last 24 hr 01/28/19 01/28/19 01/28/19 Range/Units 08:44 08:44 08:51 WBC 6.22 (3.98-10.04) K/mm3 RBC 3.29 L (3.98-5.22) M/mm3 Hgb 9.5 L (11.2-15.7) gm/L Hct 29.8 L (34.1-44.9) % MCV 90.6 (79.4-94.8) fl MCH 28.9 (25.6-32.2) pg MCHC 31.9 L (32.2-35.5) g/dl RDW Std Deviation 43.2 (36.4-46.3) fL Plt Count 230 (182-369) K/mm3 MPV 10.1 (9.4-12.3) fl Neut % (Auto) 75.9 H (34.0-71.1) % Lymph % (Auto) 12.5 L (19.3-51.7) % Rains % (Auto) 10.1 (4.7-12.5) % Eos % (Auto) 1.3 (0.7-5.8) Baso % (Auto) 0.2 (0.1-1.2) % Neut # (Auto) 4.72 (1.56-6.13) K/mm3 Lymph # (Auto) 0.78 L (1.18-3.74) K/mm3 Rains # (Auto) 0.63 H (0.24-0.36) K/mm3 Eos # (Auto) 0.08 (0.04-0.36) K/mm3 Baso # (Auto) 0.01 (0.01-0.08) K/mm3 Sodium 137 (136-145) mEq/L Potassium 4.3 (3.5-5.1) mEq/L Chloride 104 (98-107) mEq/L Carbon Dioxide 22 (21-32) mEq/L Anion Gap 15.3 H (5-15) BUN 21 H (7-18) mg/dL Creatinine 1.2 H (0.55-1.02) mg/dL Est Cr Clr Drug Dosing 25.14 mL/min Estimated GFR (MDRD) 42 (>60) mL/min BUN/Creatinine Ratio 17.5 (14-18) Glucose 102 (83-115) mg/dL Lactic Acid 1.2 (0.4-2.0) mmol/L Calcium 9.9 (8.5-10.1) mg/dL Total Bilirubin 0.4 (0.2-1.0) mg/dL AST 17 (15-37) U/L ALT 19 (14-59) U/L Alkaline Phosphatase 67 (46-116) U/L Troponin I < 0.017 (0.00-0.056) ng/mL C-Reactive Protein < 0.2 (<1.0) mg/dL Total Protein 7.2 (6.4-8.2) g/dl Albumin 3.7 (3.4-5.0) g/dl Globulin 3.5 gm/dL Albumin/Globulin Ratio 1.1 (1-2) Urine Color (Yellow) Urine Appearance (Clear) Urine pH (5.0-8.0) Ur Specific [place] (1.005-1.030) Urine Protein (Negative) Urine Glucose (UA) (Negative) Urine Ketones (Negative) Urine Occult Blood (Negative) Urine Nitrite (Negative) Urine Bilirubin (Negative) Urine Urobilinogen (0.2-1.0) Ur Leukocyte Esterase (Negative) Urine RBC (0-5) /hpf Urine WBC (0-5) /hpf Ur Epithelial Cells (0-5) /hpf Urine Bacteria (FEW) /hpf Urine Mucus (FEW) /hpf MRSA (PCR) 01/28/19 01/28/19 Range/Units 09:20 15:00 WBC (3.98-10.04) K/mm3 RBC (3.98-5.22) M/mm3 Hgb (11.2-15.7) gm/L Hct (34.1-44.9) % MCV (79.4-94.8) fl MCH (25.6-32.2) pg MCHC (32.2-35.5) g/dl RDW Std Deviation (36.4-46.3) fL Plt Count (182-369) K/mm3 MPV (9.4-12.3) fl Neut % (Auto) (34.0-71.1) % Lymph % (Auto) (19.3-51.7) % Rains % (Auto) (4.7-12.5) % Eos % (Auto) (0.7-5.8) Baso % (Auto) (0.1-1.2) % Neut # (Auto) (1.56-6.13) K/mm3 Lymph # (Auto) (1.18-3.74) K/mm3 Rains # (Auto) (0.24-0.36) K/mm3 Eos # (Auto) (0.04-0.36) K/mm3 Baso # (Auto) (0.01-0.08) K/mm3 Sodium (136-145) mEq/L Potassium (3.5-5.1) mEq/L Chloride (98-107) mEq/L Carbon Dioxide (21-32) mEq/L Anion Gap (5-15) BUN (7-18) mg/dL Creatinine (0.55-1.02) mg/dL Est Cr Clr Drug Dosing mL/min Estimated GFR (MDRD) (>60) mL/min BUN/Creatinine Ratio (14-18) Glucose (83-115) mg/dL Lactic Acid (0.4-2.0) mmol/L Calcium (8.5-10.1) mg/dL Total Bilirubin (0.2-1.0) mg/dL AST (15-37) U/L ALT (14-59) U/L Alkaline Phosphatase (46-116) U/L Troponin I (0.00-0.056) ng/mL C-Reactive Protein (<1.0) mg/dL Total Protein (6.4-8.2) g/dl Albumin (3.4-5.0) g/dl Globulin gm/dL Albumin/Globulin Ratio (1-2) Urine Color Yellow (Yellow) Urine Appearance Slt cloudy H (Clear) Urine pH 6.0 (5.0-8.0) Ur Specific [place] 1.020 (1.005-1.030) Urine Protein Negative (Negative) Urine Glucose (UA) Negative (Negative) Urine Ketones Negative (Negative) Urine Occult Blood Trace-intact H (Negative) Urine Nitrite Negative (Negative) Urine Bilirubin Negative (Negative) Urine Urobilinogen 0.2 (0.2-1.0) Ur Leukocyte Esterase Negative (Negative) Urine RBC 0-5 (0-5) /hpf Urine WBC Not seen (0-5) /hpf Ur Epithelial Cells Not seen (0-5) /hpf Urine Bacteria Few H (FEW) /hpf Urine Mucus Not seen (FEW) /hpf MRSA (PCR) Negative Result Diagrams: 01/28/19 08:44 01/28/19 08:44 - Problem List (1) HTN (hypertension) SNOMED Code(s): 78345419 ICD Code: I10 - ESSENTIAL (PRIMARY) HYPERTENSION Status: Acute Current Visit: Yes (2) Anemia SNOMED Code(s): 503198885 ICD Code: D64.9 - ANEMIA, UNSPECIFIED Status: Acute Current Visit: Yes Qualifiers: Anemia type: other cause Other causes of anemia: other cause, not classified Qualified Code(s): D64.89 - Other specified anemias (3) Bimalleolar fracture of right ankle SNOMED Code(s): 432442454 ICD Code: S82.841A - DISPLACED BIMALLEOLAR FRACTURE OF RIGHT LOWER LEG, INIT Status: Acute Current Visit: Yes Qualifiers: Encounter type: initial encounter Fracture type: closed Qualified Code(s) : S82.841A - Displaced bimalleolar fracture of right lower leg, initial encounter for closed fracture (4) Fall SNOMED Code(s): 0932031, 037612917 ICD Code: W19.XXXA - UNSPECIFIED FALL, INITIAL ENCOUNTER Status: Acute Priority: High Current Visit: Yes Qualifiers: Encounter type: initial encounter Qualified Code(s): W19.XXXA - Unspecified fall, initial encounter Problem List Initiated/Reviewed/Updated: Yes Orders Last 24hrs: Active Orders 24 hr Category Date Time Status Patient Status [ADT] Routine ADT 01/28/19 12:46 Active Peripheral IV Care [RC] Q2HR Care 01/28/19 08:34 Active Regular Diet [DIET] Diet 01/28/19 Lunch Active CULTURE BLOOD [BC] Stat Lab 01/28/19 08:44 Received CULTURE BLOOD [BC] Stat Lab 01/28/19 09:00 Received Acetaminophen/HYDROcodone [Platinum 325-5 MG] Med 01/28/19 16:24 Active 1 - 2 tab PO Q4H PRN Carboxymethylcellulose Sodium Med 01/28/19 18:20 Ordered 1 drop EYEBOTH DAILY PRN Cholecalciferol (Vitamin D3) [Vitamin D3] Med 01/29/19 09:00 Active 5,000 unit PO DAILY Levothyroxine Med 01/29/19 08:00 Active 75 mcg PO QAM Losartan [Cozaar] Med 01/28/19 21:00 Active 100 mg PO BEDTIME Meclizine [Antivert] Med 01/28/19 14:59 Active 12.5 mg PO BID PRN Polyethylene Glycol 3350 [MiraLAX] Med 01/29/19 09:00 Active 17 gm PO DAILY Ranitidine Med 01/29/19 09:00 Ordered 150 mcg PO DAILY Rosuvastatin [Crestor] Med 01/29/19 09:00 Active 5 mg PO DAILY Sertraline [Zoloft] Med 01/29/19 09:00 Active 50 mg PO DAILY Sodium Chloride 0.9% [Saline Flush] Med 01/28/19 08:33 Active 10 ml FLUSH ASDIRECTED PRN Spironolactone [Aldactone] Med 01/29/19 09:00 Active 50 mg PO DAILY Verapamil HCl [Verapamil ER] Med 01/29/19 18:00 Ordered 240 mg PO QPM hydrALAZINE [Apresoline] Med 01/28/19 21:00 Active 10 mg PO Q12H Blood Culture x2 Reflex Set [OM.PC] Stat Oth 01/28/19 08:35 Ordered Durable Medical Equipment for Discharge [DME for Oth 01/28/19 12:37 Ordered Discharge] [COMM] Stat Peripheral IV Insertion Adult [OM.PC] Stat Oth 01/28/19 08:33 Ordered Resuscitation Status Routine Resus Stat 01/28/19 15:18 Ordered Medication Orders Hydrocodone Bitart/Acetaminophen (Platinum 325-5 Mg) 1 - 2 tab PO Q4H PRN PRN Reason: Pain Last Admin: 01/28/19 16:36 Dose: 1 tab Cholecalciferol (Vitamin D3) 5,000 unit PO DAILY MOR Hydralazine HCl (Apresoline) 10 mg PO Q12H MOR Levothyroxine Sodium (Levothyroxine) 75 mcg PO QAM MOR Losartan Potassium (Cozaar) 100 mg PO BEDTIME MOR Meclizine HCl (Antivert) 12.5 mg PO BID PRN PRN Reason: Dizziness Non-Formulary Medication (Carboxymethylcellulose Sodium) 1 drop EYEBOTH DAILY PRN PRN Reason: Dry Eyes Non-Formulary Medication (Ranitidine) 150 mcg PO DAILY MOR Non-Formulary Medication (Verapamil Hcl [Verapamil Er]) 240 mg PO QPM MOR Polyethylene Glycol (Miralax) 17 gm PO DAILY MOR Rosuvastatin Calcium (Crestor) 5 mg PO DAILY MOR Sertraline HCl (Zoloft) 50 mg PO DAILY MOR Sodium Chloride (Saline Flush) 10 ml FLUSH ASDIRECTED PRN PRN Reason: Keep Vein Open Last Admin: 01/28/19 09:13 Dose: 10 ml Admin: 01/28/19 08:46 Dose: 10 ml Spironolactone (Aldactone) 50 mg PO DAILY MOR Assessment/Plan Comment:: Right bimalleolar fracture * Dr. Tucker consulted * Surgery scheduled for next Monday. * Patient will need placement in prison facility * Platinum 5/325 one to 2 tabs every 4 hours when necessary pain. Hypertension * Restart home medications: Prolactin 50 mg daily, hydralazine 10 mg twice a day , losartan 100 mg daily, verapamil SR 240 mg daily Fall * Patient states that she felt weak. She apparently has had several falls. She will benefit from prison facility and rehabilitation in the long-term. * Patient has a history of dizziness, but she does not think that was the cause of her fall this morning. Dizziness/history of orthostatic hypotension * Continue meclizine when necessary. * 1 L normal saline and then saline lock History of chronic anemia * Hemoglobin in January 2017 was 10.6 now 9.5 * Follow hemoglobin overnight. * Hold off on VTE prophylaxis with anticoagulation until we see a trend of hemoglobin * Patient denies any dark tarry stools or blood in her stools Discharge planning: Discharge to prison facility when available VTE prophylaxis: Out of bed as much as possible. Consider Lovenox if hemoglobin is stable and patient is here longer than tomorrow.
[2019-01-28] MEDS: hydrALAZINE 10 MG Tab PO SCH (21:06)
[2019-01-28] MEDS: Losartan 100 MG Tab PO SCH (21:06)
[2019-01-29] MEDS: oxyCODONE 5 MG Tab PO PRN ×4 (03:16→21:42)
[2019-01-29] MEDS: Spironolactone 25 MG Tab PO SCH (09:18)
[2019-01-29] MEDS ORDERED: Sodium Chloride 0.9% 500 ML IV SCH (09:45)
[2019-01-29] MEDS ORDERED: Ondansetron 4 MG/2 ML SDV IVPUSH PRN (10:03)
[2019-01-29] MEDS: hydrALAZINE 10 MG Tab PO SCH ×2 (10:22→20:29)
--- NOTE | 2019-01-29 10:22 | CR ---
Right hip: AP and frog-leg lateral views of the right hip were obtained. Comparison: No previous study. Joint space within the right hip is maintained. No fracture or other abnormality is identified. Impression: 1. Nothing acute is seen on two-view right hip exam. Diagnostic code #1
[2019-01-29] MEDS: Rosuvastatin 10 MG Tab PO SCH (10:25)
[2019-01-29] MEDS: Levothyroxine 75 MCG Tab PO SCH (10:26)
[2019-01-29] MEDS: Cholecalciferol (Vitamin D3) 5,000 UNIT Tab PO SCH (10:29)
[2019-01-29] MEDS: Sertraline 50 MG Tab PO SCH (10:29)
[2019-01-29] MEDS: Polyethylene Glycol 3350 Powder 17 GM Packet PO SCH ×2 (10:31→11:02)
[2019-01-29] MEDS: Verapamil 120 MG Cap.ER PO SCH (18:22)
--- NOTE | 2019-01-29 19:45 | PCM.PN ---
- General Info Date of Service: 01/29/19 Admission Dx/Problem (Free Text): Admission Diagnosis/Problem Admission Diagnosis/Problem Fall Subjective Update: Patient's and significant pain overnight and received oxycodone 5 mg. This did help her pain and let her rest comfortably. This morning patient has no complaints. - Review of Systems General: Reports: No Symptoms HEENT: Reports: No Symptoms Pulmonary: Reports: No Symptoms. Denies: Shortness of Breath, Pleuritic Chest Pain Cardiovascular: Reports: No Symptoms. Denies: Chest Pain, Palpitations Gastrointestinal: Reports: No Symptoms. Denies: Abdominal Pain, Constipation Neurological: Reports: No Symptoms. Denies: Confusion, Dizziness Psychiatric: Reports: No Symptoms. Denies: Confusion - Patient Data Vitals - Most Recent: Last Vital Signs Temp 98.2 F 01/29/19 16:00 Pulse 93 01/29/19 18:22 Resp 16 01/29/19 16:00 BP 108/74 01/29/19 18:22 Pulse Ox 93 L 01/29/19 18:21 Weight - Most Recent: 151 lb 4.8 oz I&O - Last 24 Hours: Intake & Output 01/29/19 01/29/19 01/29/19 06:59 14:59 22:59 Intake Total 300 90 460 Output Total 0 70 Balance 300 90 390 Lab Results Last 24 Hours: Laboratory Results - last 24 hr 01/29/19 01/29/19 01/29/19 Range/Units 06:20 06:20 06:20 WBC 7.22 (3.98-10.04) K/mm3 RBC 2.59 L (3.98-5.22) M/mm3 Hgb 7.2 L* (11.2-15.7) gm/L Hct 23.9 L (34.1-44.9) % MCV 92.3 (79.4-94.8) fl MCH 27.8 (25.6-32.2) pg MCHC 30.1 L (32.2-35.5) g/dl RDW Std Deviation 44.0 (36.4-46.3) fL Plt Count 232 (182-369) K/mm3 MPV 10.2 (9.4-12.3) fl Neut % (Auto) 71.2 H (34.0-71.1) % Lymph % (Auto) 12.5 L (19.3-51.7) % [place] % (Auto) 15.0 H (4.7-12.5) % Eos % (Auto) 1.2 (0.7-5.8) Baso % (Auto) 0.1 (0.1-1.2) % Neut # (Auto) 5.14 (1.56-6.13) K/mm3 Lymph # (Auto) 0.90 L (1.18-3.74) K/mm3 [place] # (Auto) 1.08 H (0.24-0.36) K/mm3 Eos # (Auto) 0.09 (0.04-0.36) K/mm3 Baso # (Auto) 0.01 (0.01-0.08) K/mm3 Manual Slide Review Abnormal smear Sodium 137 (136-145) mEq/L Potassium 5.1 (3.5-5.1) mEq/L Chloride 106 (98-107) mEq/L Carbon Dioxide 22 (21-32) mEq/L Anion Gap 14.1 (5-15) BUN 46 H (7-18) mg/dL Creatinine 1.4 H (0.55-1.02) mg/dL Est Cr Clr Drug Dosing 20.56 mL/min Estimated GFR (MDRD) 35 (>60) mL/min BUN/Creatinine Ratio 32.9 H (14-18) Glucose 104 (83-115) mg/dL Calcium 9.3 (8.5-10.1) mg/dL Phosphorus 3.6 (2.6-4.7) mg/dL Magnesium 1.8 (1.8-2.4) mg/dl Total Bilirubin 0.4 (0.2-1.0) mg/dL AST 16 (15-37) U/L ALT 17 (14-59) U/L Alkaline Phosphatase 51 (46-116) U/L Total Protein 6.0 L (6.4-8.2) g/dl Albumin 3.0 L (3.4-5.0) g/dl Globulin 3.0 gm/dL Albumin/Globulin Ratio 1.0 (1-2) Urine Color (Yellow) Urine Appearance (Clear) Urine pH (5.0-8.0) Ur Specific [place] (1.005-1.030) Urine Protein (Negative) Urine Glucose (UA) (Negative) Urine Ketones (Negative) Urine Occult Blood (Negative) Urine Nitrite (Negative) Urine Bilirubin (Negative) Urine Urobilinogen (0.2-1.0) Ur Leukocyte Esterase (Negative) Blood Type O POSITIVE Gel Antibody Screen Negative Crossmatch See Detail Tx Rx Implicated Unit 1 Unit 1 Component Tx React Review Date Reaction Clerical Check Pre-Trans Vis Hemolysis Pre-Trans Icterus Post-Trans Blood Type Post-Tx Visible Hemolys Post-Trans Icterus Post-Trans YUKO IgG Post-Trans YUKO Poly Reaction Interpretation Reaction Pathol Review 01/29/19 01/29/19 01/29/19 Range/Units 11:05 12:38 14:00 WBC (3.98-10.04) K/mm3 RBC (3.98-5.22) M/mm3 Hgb 7.4 L (11.2-15.7) gm/L Hct 24.2 L (34.1-44.9) % MCV (79.4-94.8) fl MCH (25.6-32.2) pg MCHC (32.2-35.5) g/dl RDW Std Deviation (36.4-46.3) fL Plt Count (182-369) K/mm3 MPV (9.4-12.3) fl Neut % (Auto) (34.0-71.1) % Lymph % (Auto) (19.3-51.7) % [place] % (Auto) (4.7-12.5) % Eos % (Auto) (0.7-5.8) Baso % (Auto) (0.1-1.2) % Neut # (Auto) (1.56-6.13) K/mm3 Lymph # (Auto) (1.18-3.74) K/mm3 [place] # (Auto) (0.24-0.36) K/mm3 Eos # (Auto) (0.04-0.36) K/mm3 Baso # (Auto) (0.01-0.08) K/mm3 Manual Slide Review Sodium (136-145) mEq/L Potassium (3.5-5.1) mEq/L Chloride (98-107) mEq/L Carbon Dioxide (21-32) mEq/L Anion Gap (5-15) BUN (7-18) mg/dL Creatinine (0.55-1.02) mg/dL Est Cr Clr Drug Dosing mL/min Estimated GFR (MDRD) (>60) mL/min BUN/Creatinine Ratio (14-18) Glucose (83-115) mg/dL Calcium (8.5-10.1) mg/dL Phosphorus (2.6-4.7) mg/dL Magnesium (1.8-2.4) mg/dl Total Bilirubin (0.2-1.0) mg/dL AST (15-37) U/L ALT (14-59) U/L Alkaline Phosphatase (46-116) U/L Total Protein (6.4-8.2) g/dl Albumin (3.4-5.0) g/dl Globulin gm/dL Albumin/Globulin Ratio (1-2) Urine Color Yellow (Yellow) Urine Appearance Slt cloudy H (Clear) Urine pH 5.5 (5.0-8.0) Ur Specific [place] 1.020 (1.005-1.030) Urine Protein 1+ H (Negative) Urine Glucose (UA) Negative (Negative) Urine Ketones Trace H (Negative) Urine Occult Blood Negative (Negative) Urine Nitrite Negative (Negative) Urine Bilirubin Negative (Negative) Urine Urobilinogen 0.2 (0.2-1.0) Ur Leukocyte Esterase Negative (Negative) Blood Type Gel Antibody Screen Crossmatch Tx Rx Implicated Unit 1 [id number] Unit 1 Component Rbc Tx React Review Date 01/29/19 1214 Reaction Clerical Check Acceptable Pre-Trans Vis Hemolysis Negative Pre-Trans Icterus Negative Post-Trans Blood Type O positive Post-Tx Visible Hemolys Negative Post-Trans Icterus Negative Post-Trans YUKO IgG Negative Post-Trans YUKO Poly Negative Reaction Interpretation Non-hem transf rx Reaction Pathol Review Dr. adán bruno 01/29/19 Range/Units 17:15 WBC (3.98-10.04) K/mm3 RBC (3.98-5.22) M/mm3 Hgb 7.1 L* (11.2-15.7) gm/L Hct 23.0 L (34.1-44.9) % MCV (79.4-94.8) fl MCH (25.6-32.2) pg MCHC (32.2-35.5) g/dl RDW Std Deviation (36.4-46.3) fL Plt Count (182-369) K/mm3 MPV (9.4-12.3) fl Neut % (Auto) (34.0-71.1) % Lymph % (Auto) (19.3-51.7) % [place] % (Auto) (4.7-12.5) % Eos % (Auto) (0.7-5.8) Baso % (Auto) (0.1-1.2) % Neut # (Auto) (1.56-6.13) K/mm3 Lymph # (Auto) (1.18-3.74) K/mm3 [place] # (Auto) (0.24-0.36) K/mm3 Eos # (Auto) (0.04-0.36) K/mm3 Baso # (Auto) (0.01-0.08) K/mm3 Manual Slide Review Sodium (136-145) mEq/L Potassium (3.5-5.1) mEq/L Chloride (98-107) mEq/L Carbon Dioxide (21-32) mEq/L Anion Gap (5-15) BUN (7-18) mg/dL Creatinine (0.55-1.02) mg/dL Est Cr Clr Drug Dosing mL/min Estimated GFR (MDRD) (>60) mL/min BUN/Creatinine Ratio (14-18) Glucose (83-115) mg/dL Calcium (8.5-10.1) mg/dL Phosphorus (2.6-4.7) mg/dL Magnesium (1.8-2.4) mg/dl Total Bilirubin (0.2-1.0) mg/dL AST (15-37) U/L ALT (14-59) U/L Alkaline Phosphatase (46-116) U/L Total Protein (6.4-8.2) g/dl Albumin (3.4-5.0) g/dl Globulin gm/dL Albumin/Globulin Ratio (1-2) Urine Color (Yellow) Urine Appearance (Clear) Urine pH (5.0-8.0) Ur Specific [place] (1.005-1.030) Urine Protein (Negative) Urine Glucose (UA) (Negative) Urine Ketones (Negative) Urine Occult Blood (Negative) Urine Nitrite (Negative) Urine Bilirubin (Negative) Urine Urobilinogen (0.2-1.0) Ur Leukocyte Esterase (Negative) Blood Type Gel Antibody Screen Crossmatch Tx Rx Implicated Unit 1 Unit 1 Component Tx React Review Date Reaction Clerical Check Pre-Trans Vis Hemolysis Pre-Trans Icterus Post-Trans Blood Type Post-Tx Visible Hemolys Post-Trans Icterus Post-Trans YUKO IgG Post-Trans YUKO Poly Reaction Interpretation Reaction Pathol Review Jason Results Last 24 Hours: Microbiology 01/28/19 08:44 Aerobic Blood Culture - Preliminary Blood - Venous NO GROWTH AFTER 1 DAY Anaerobic Blood Culture - Preliminary NO GROWTH AFTER 1 DAY 01/28/19 09:00 Aerobic Blood Culture - Preliminary Blood - Venous - Lab Draw NO GROWTH AFTER 1 DAY Anaerobic Blood Culture - Preliminary NO GROWTH AFTER 1 DAY Med Orders - Current: Current Medications Artificial Tears (Refresh Liquigel 1%) 0 ml EYEBOTH DAILY PRN PRN Reason: DRY EYES Cholecalciferol (Vitamin D3) 5,000 unit PO DAILY [facility] Last Admin: 01/29/19 10:29 Dose: 5,000 unit Famotidine (Pepcid) 20 mg PO BEDTIME [facility] Hydralazine HCl (Apresoline) 10 mg PO Q12H [facility] Last Admin: 01/29/19 10:22 Dose: 10 mg Levothyroxine Sodium (Levothyroxine) 75 mcg PO QAM [facility] Last Admin: 01/29/19 10:26 Dose: 75 mcg Losartan Potassium (Cozaar) 100 mg PO BEDTIME [facility] Last Admin: 01/28/19 21:06 Dose: 100 mg Meclizine HCl (Antivert) 12.5 mg PO BID PRN PRN Reason: Dizziness Last Admin: 01/29/19 14:45 Dose: 12.5 mg Ondansetron HCl (Zofran) 4 mg IVPUSH Q4H PRN PRN Reason: Nausea/Vomiting Oxycodone HCl (Oxycodone) 5 - 10 mg PO Q4H PRN PRN Reason: Pain Last Admin: 01/29/19 18:22 Dose: 5 mg Pantoprazole Sodium (Protonix Iv) 40 mg IVPUSH Q12H [facility] Polyethylene Glycol (Miralax) 17 gm PO DAILY [facility] Last Admin: 01/29/19 11:02 Dose: Not Given Rosuvastatin Calcium (Crestor) 5 mg PO DAILY [facility] Last Admin: 01/29/19 10:25 Dose: 5 mg Sertraline HCl (Zoloft) 50 mg PO DAILY [facility] Last Admin: 01/29/19 10:29 Dose: 50 mg Sodium Chloride (Saline Flush) 10 ml FLUSH ASDIRECTED PRN PRN Reason: Keep Vein Open Last Admin: 01/28/19 09:13 Dose: 10 ml Spironolactone (Aldactone) 50 mg PO DAILY [facility] Last Admin: 01/29/19 09:18 Dose: Not Given Verapamil HCl (Verelan) 240 mg PO QPM [facility] Last Admin: 01/29/19 18:22 Dose: 240 mg Discontinued Medications Hydrocodone Bitart/Acetaminophen (Tuttle 325-5 Mg) 1 tab PO Q4H PRN PRN Reason: Pain Last Admin: 01/28/19 14:01 Dose: 1 tab Hydrocodone Bitart/Acetaminophen (Tuttle 325-5 Mg) 1 - 2 tab PO Q4H PRN PRN Reason: Pain Last Admin: 01/28/19 23:41 Dose: 2 tab Sodium Chloride (Normal Saline) 1,000 mls @ 125 mls/hr IV ASDIRECTED [facility] Last Admin: 01/28/19 09:13 Dose: 125 mls/hr Sodium Chloride (Normal Saline) 500 mls @ 50 mls/hr IV ASDIRECTED [facility] Stop: 01/29/19 14:00 Ketorolac Tromethamine (Toradol) 15 mg IVPUSH ONETIME ONE Stop: 01/28/19 11:33 Last Admin: 01/28/19 11:36 Dose: 15 mg - Exam General: Alert, Oriented HEENT: Pupils Equal Neck: Supple Lungs: Clear to Auscultation, Normal Respiratory Effort Cardiovascular: Regular Rate, Regular Rhythm Extremities: Other (Right lower extremity splint was removed to evaluate for possible blood loss into that leg. It was slightly swollen and bruised and no significant swelling was noted. not enough for a 2 unit packed red blood cell drop.) Skin: Warm, Dry, Intact Psy/Mental Status: Alert, Normal Affect - Problem List & Annotations (1) HTN (hypertension) SNOMED Code(s): 73498018 Code(s): I10 - ESSENTIAL (PRIMARY) HYPERTENSION Status: Acute Current Visit: Yes (2) Anemia SNOMED Code(s): 364246120 Code(s): D64.9 - ANEMIA, UNSPECIFIED Status: Acute Current Visit: Yes Qualifiers: Anemia type: other cause Other causes of anemia: other cause, not classified Qualified Code(s): D64.89 - Other specified anemias (3) Bimalleolar fracture of right ankle SNOMED Code(s): 923135033 Code(s): S82.841A - DISPLACED BIMALLEOLAR FRACTURE OF RIGHT LOWER LEG, INIT Status: Acute Current Visit: Yes Qualifiers: Encounter type: initial encounter Fracture type: closed Qualified Code(s) : S82.841A - Displaced bimalleolar fracture of right lower leg, initial encounter for closed fracture (4) Fall SNOMED Code(s): 1378563, 623328040 Code(s): W19.XXXA - UNSPECIFIED FALL, INITIAL ENCOUNTER Status: Acute Priority: High Current Visit: Yes Qualifiers: Encounter type: initial encounter Qualified Code(s): W19.XXXA - Unspecified fall, initial encounter - Problem List Review Problem List Initiated/Reviewed/Updated: Yes - My Orders Last 24 Hours: My Active Orders 01/28/19 21:00 Antiembolic Devices [RC] BID Losartan [Cozaar] 100 mg PO BEDTIME hydrALAZINE [Apresoline] 10 mg PO Q12H SCD [Sequential Compression Device] [OM.PC] Routine 01/29/19 02:56 oxyCODONE 5 - 10 mg PO Q4H PRN 01/29/19 06:20 RED BLOOD CELLS LP [BBK] Routine TYPE AND SCREEN [BBK] Routine 01/29/19 08:00 Levothyroxine 75 mcg PO QAM 01/29/19 08:26 Hemoccult [OCCULT BLOOD DIAGNOSTIC] [OP] Routine 01/29/19 09:00 Cholecalciferol (Vitamin D3) [Vitamin D3] 5,000 unit PO DAILY Polyethylene Glycol 3350 [MiraLAX] 17 gm PO DAILY Rosuvastatin [Crestor] 5 mg PO DAILY Sertraline [Zoloft] 50 mg PO DAILY Spironolactone [Aldactone] 50 mg PO DAILY 01/29/19 10:03 Ondansetron [Zofran] 4 mg IVPUSH Q4H PRN 01/29/19 10:31 Consult to Physician [CONS] Routine 01/29/19 10:32 Notify Provider Consults [RC] ASDIRECTED 01/29/19 11:22 Consult to Occupational Therapy [OT Evaluation and Treatment] [CONS] Routine Consult to Physical Therapy [PT Evaluation and Treatment] [CONS] Routine 01/29/19 18:00 Verapamil [Verelan] 240 mg PO QPM 01/29/19 21:00 Famotidine [Pepcid] 20 mg PO BEDTIME Pantoprazole [ProTONIX IV] 40 mg IVPUSH Q12H 01/30/19 05:00 CBC WITH AUTO DIFF [HEME] Routine CMP [COMPREHENSIVE METABOLIC PN,CMP] [CHEM] Routine - Plan Plan:: Right bimalleolar fracture * Dr. Tucker consulted * Surgery scheduled for next Monday. * Patient will need placement in care home facility Hypertension * Restart home medications: hydralazine 10 mg twice a day, losartan 100 mg daily, verapamil SR 240 mg daily. Hold spironolactone Fall * Patient states that she felt weak. She apparently has had several falls. She will benefit from care home facility and rehabilitation in the long-term. * Patient has a history of dizziness, but she does not think that was the cause of her fall this morning. Dizziness/history of orthostatic hypotension * Continue meclizine when necessary. * saline lock IV * History of chronic anemia * Patient has significant drop in her hemoglobin overnight. Hemoglobin dropped to 7.2. 2 units of packed red blood cells were ordered because she is scheduled for surgery on Monday. After approximately 15 minutes the infusion had to stop because of a local reaction. Labs was consult and after further evaluation was determined it was a non-transfusion related reaction. Repeat hemoglobin was 7.4 and hemoglobin 4 hours later was 7.1. We will repeat the hemoglobin in the morning and consider giving packed red blood cells at that time. * Follow hemoglobin overnight. * Guaiac stools * Hold off on VTE prophylaxis with anticoagulation until we see a trend of hemoglobin * Patient denies any dark tarry stools or blood in her stools Discharge planning: Discharge to care home facility when available VTE prophylaxis: Out of bed as much as possible. Significant drop in hemoglobin with unknown source.
[2019-01-29] MEDS: Famotidine 20 MG Tab PO SCH (20:28)
[2019-01-29] MEDS: Losartan 100 MG Tab PO SCH (20:29)
[2019-01-29] MEDS: Pantoprazole 40 MG Vial IVPUSH SCH (20:31)
[2019-01-30] MEDS: oxyCODONE 5 MG Tab PO PRN ×3 (06:01→17:29)
[2019-01-30] MEDS: Rosuvastatin 10 MG Tab PO SCH (08:34)
[2019-01-30] MEDS: Spironolactone 25 MG Tab PO SCH (08:35)
[2019-01-30] MEDS: Levothyroxine 75 MCG Tab PO SCH (08:35)
[2019-01-30] MEDS: Docusate Sodium 100 MG Cap PO SCH (08:35)
[2019-01-30] MEDS: Sertraline 50 MG Tab PO SCH (08:36)
[2019-01-30] MEDS: Cholecalciferol (Vitamin D3) 5,000 UNIT Tab PO SCH (08:36)
[2019-01-30] MEDS: Polyethylene Glycol 3350 Powder 17 GM Packet PO SCH (08:36)
[2019-01-30] MEDS: hydrALAZINE 10 MG Tab PO SCH ×2 (08:37→20:24)
[2019-01-30] MEDS: Pantoprazole 40 MG Vial IVPUSH SCH ×2 (08:38→20:27)
[2019-01-30] MEDS ORDERED: diphenhydrAMINE 50 MG/ML SDV IVPUSH ONE (09:00)
[2019-01-30] MEDS: Cyclobenzaprine 10 MG Tab PO PRN (09:41)
[2019-01-30] MEDS: Sodium Chloride 0.9% 250 ML IV SCH ×2 (09:41→12:39)
--- NOTE | 2019-01-30 13:27 | PCM.PREANE ---
Preanesthetic Assessment - Anesthesia/Transfusion/Family Hx Anesthesia History: Prior Anesthesia Reaction Other Type of Anesthesia Reaction Comment: confusion Family History of Anesthesia Reaction: No Transfusion History: Prior Transfusion Without Reaction - Review of Systems General: Fatigue, Other (anemia-pts am hgb 6.2 down from 7.1 yesterday. pt receiving 2nd unit of blood currently) Pulmonary: No Symptoms (pt fell and broke her right ankle on monday. head ct scan, negative), Shortness of Breath (with too much activity), Other Cardiovascular: No Symptoms (HTN, denies ever having cp), Other (EKG on 01/28/19 showed sr@80) Gastrointestinal: Other (GERD, on meds, controlled) Neurological: Dizziness (has veritgo on meds), Difficulty Walking (walks with walker) Other: Reports: Thyroid Problems - Physical Assessment NPO Status Date: 01/30/19 NPO Status Time: 10:00 (clear liquids) Pulse: 79 O2 Sat by Pulse Oximetry: 99 Respiratory Rate: 18 Blood Pressure: 110/60 Temperature: 36.6 C Vital Signs: Last Vital Signs Temp 36.6 C 01/30/19 13:08 Pulse 79 01/30/19 13:08 Resp 18 01/30/19 13:08 BP 110/60 01/30/19 13:08 Pulse Ox 99 01/30/19 13:08 Height: 1.55 m Weight: 68.039 kg ASA Class: 3E Mental Status: Alert & Oriented x3 Airway Class: Mallampati = 2 Dentition: Reports: Normal Dentition Thyro-Mental Finger Breadths: 3 Mouth Opening Finger Breadths: 2 ROM/Head Extension: Limited/Partial Lungs: Clear to Auscultation, Normal Respiratory Effort Cardiovascular: Regular Rate, Regular Rhythm - Lab Values: Laboratory Last Values WBC 9.62 K/mm3 (3.98-10.04) 01/30/19 05:46 RBC 2.23 M/mm3 (3.98-5.22) L 01/30/19 05:46 Hgb 6.2 gm/L (11.2-15.7) L* 01/30/19 05:46 Hct 20.5 % (34.1-44.9) L 01/30/19 05:46 MCV 91.9 fl (79.4-94.8) 01/30/19 05:46 MCH 27.8 pg (25.6-32.2) 01/30/19 05:46 MCHC 30.2 g/dl (32.2-35.5) L 01/30/19 05:46 RDW Std Deviation 44.0 fL (36.4-46.3) 01/30/19 05:46 Plt Count 218 K/mm3 (182-369) 01/30/19 05:46 MPV 10.5 fl (9.4-12.3) 01/30/19 05:46 Neut % (Auto) 72.7 % (34.0-71.1) H 01/30/19 05:46 Lymph % (Auto) 12.0 % (19.3-51.7) L 01/30/19 05:46 [place] % (Auto) 13.8 % (4.7-12.5) H 01/30/19 05:46 Eos % (Auto) 1.1 (0.7-5.8) 01/30/19 05:46 Baso % (Auto) 0.2 % (0.1-1.2) 01/30/19 05:46 Neut # (Auto) 6.99 K/mm3 (1.56-6.13) H 01/30/19 05:46 Lymph # (Auto) 1.15 K/mm3 (1.18-3.74) L 01/30/19 05:46 [place] # (Auto) 1.33 K/mm3 (0.24-0.36) H 01/30/19 05:46 Eos # (Auto) 0.11 K/mm3 (0.04-0.36) 01/30/19 05:46 Baso # (Auto) 0.02 K/mm3 (0.01-0.08) 01/30/19 05:46 Manual Slide Review Abnormal smear 01/30/19 05:46 Sodium 136 mEq/L (136-145) 01/30/19 05:46 Potassium 4.6 mEq/L (3.5-5.1) 01/30/19 05:46 Chloride 105 mEq/L (98-107) 01/30/19 05:46 Carbon Dioxide 20 mEq/L (21-32) L 01/30/19 05:46 Anion Gap 15.6 (5-15) H 01/30/19 05:46 BUN 63 mg/dL (7-18) H 01/30/19 05:46 Creatinine 1.3 mg/dL (0.55-1.02) H 01/30/19 05:46 Est Cr Clr Drug Dosing 22.14 mL/min 01/30/19 05:46 Estimated GFR (MDRD) 39 mL/min (>60) 01/30/19 05:46 BUN/Creatinine Ratio 48.5 (14-18) H 01/30/19 05:46 Glucose 104 mg/dL (83-115) 01/30/19 05:46 Lactic Acid 1.2 mmol/L (0.4-2.0) 01/28/19 08:51 Calcium 9.3 mg/dL (8.5-10.1) 01/30/19 05:46 Phosphorus 3.6 mg/dL (2.6-4.7) 01/29/19 06:20 Magnesium 1.8 mg/dl (1.8-2.4) 01/29/19 06:20 Total Bilirubin 0.4 mg/dL (0.2-1.0) 01/30/19 05:46 AST 13 U/L (15-37) L 01/30/19 05:46 ALT 14 U/L (14-59) 01/30/19 05:46 Alkaline Phosphatase 48 U/L (46-116) 01/30/19 05:46 Troponin I < 0.017 ng/mL (0.00-0.056) 01/28/19 08:44 C-Reactive Protein < 0.2 mg/dL (<1.0) 01/28/19 08:44 Total Protein 5.8 g/dl (6.4-8.2) L 01/30/19 05:46 Albumin 2.8 g/dl (3.4-5.0) L 01/30/19 05:46 Globulin 3.0 gm/dL 01/30/19 05:46 Albumin/Globulin Ratio 0.9 (1-2) L 01/30/19 05:46 Urine Color Yellow (Yellow) 01/29/19 14:00 Urine Appearance Slt cloudy (Clear) H 01/29/19 14:00 Urine pH 5.5 (5.0-8.0) 01/29/19 14:00 Ur Specific [place] 1.020 (1.005-1.030) 01/29/19 14:00 Urine Protein 1+ (Negative) H 01/29/19 14:00 Urine Glucose (UA) Negative (Negative) 01/29/19 14:00 Urine Ketones Trace (Negative) H 01/29/19 14:00 Urine Occult Blood Negative (Negative) 01/29/19 14:00 Urine Nitrite Negative (Negative) 01/29/19 14:00 Urine Bilirubin Negative (Negative) 01/29/19 14:00 Urine Urobilinogen 0.2 (0.2-1.0) 01/29/19 14:00 Ur Leukocyte Esterase Negative (Negative) 01/29/19 14:00 Urine RBC 0-5 /hpf (0-5) 01/28/19 09:20 Urine WBC Not seen /hpf (0-5) 01/28/19 09:20 Ur Epithelial Cells Not seen /hpf (0-5) 01/28/19 09:20 Urine Bacteria Few /hpf (FEW) H 01/28/19 09:20 Urine Mucus Not seen /hpf (FEW) 01/28/19 09:20 MRSA (PCR) Negative 01/28/19 15:00 Blood Type O POSITIVE 01/29/19 06:20 Gel Antibody Screen Negative 01/29/19 06:20 Crossmatch See Detail 01/29/19 11:05 Tx Rx Implicated Unit 1 [id number] 01/29/19 11:05 Unit 1 Component Rbc 01/29/19 11:05 Tx React Review Date 01/29/19 1214 01/29/19 11:05 Reaction Clerical Check Acceptable 01/29/19 11:05 Pre-Trans Vis Hemolysis Negative 01/29/19 11:05 Pre-Trans Icterus Negative 01/29/19 11:05 Post-Trans Blood Type O positive 01/29/19 11:05 Post-Tx Visible Hemolys Negative 01/29/19 11:05 Post-Trans Icterus Negative 01/29/19 11:05 Post-Trans YUKO IgG Negative 01/29/19 11:05 Post-Trans YUKO Poly Negative 01/29/19 11:05 Reaction Interpretation Non-hem transf rx 01/29/19 11:[address] adán bruno 01/29/19 11:05 - Allergies Allergies/Adverse Reactions: Allergies Allergy/AdvReac Type Severity Reaction Status Date / Time hydralazine Allergy Cannot Verified 01/28/19 08:27 Remember hydrochlorothiazide Allergy Cannot Verified 01/28/19 08:27 Remember pollen extracts Allergy Sneezing Verified 01/30/18 01:32 simvastatin [From Zocor] Allergy Cannot Verified 01/28/19 08:27 Remember dust Allergy Cough Uncoded 05/29/15 15:01 - Blood Blood Available: Yes Product(s) Available: PRBC - Anesthesia Plan Pre-Op Medication Ordered: None - Acknowledgements Anesthesia Type Planned: MAC Pt an Appropriate Candidate for the Planned Anesthesia: Yes Alternatives and Risks of Anesthesia Discussed w Pt/Guardian: Yes Pt/Guardian Understands and Agrees with Anesthesia Plan: Yes PreAnesthesia Questionnaire HEENT History: Reports: Macular Degeneration Cardiovascular History: Reports: High Cholesterol, Hypertension Respiratory History: Reports: Croup Gastrointestinal History: Reports: Hiatal Hernia Genitourinary History: Reports: UTI, Recurrent, Other (See Below) Other Genitourinary History: bladder dropped-unable to have it repaired due to age LAMP REPLACER History: Reports: Endometriosis, Musculoskeletal History: Reports: Osteoarthritis, Osteoporosis Neurological History: Reports: CVA, Other (See Below) Other Neuro History: CT head revealed a stroke in the past Psychiatric History: Reports: Anxiety, Depression Endocrine/Metabolic History: Reports: Hypothyroidism Hematologic History: Reports: Anemia Immunologic History: Reports: None Oncologic (Cancer) History: Reports: Other (See Below) Other Oncologic History: basal cell carcinoma skin cancer Dermatologic History: Reports: None - Infectious Disease History Infectious Disease History: Reports: Chicken Pox, Measles, Mumps - Past Surgical History HEENT Surgical History: Reports: Cataract Surgery Cardiovascular Surgical History: Reports: None Respiratory Surgical History: Reports: None GI Surgical History: Reports: Appendectomy, Cholecystectomy Female Surgical History: Reports: Hysterectomy Endocrine Surgical History: Reports: None Neurological Surgical History: Reports: None Musculoskeletal Surgical History: Reports: None Oncologic Surgical History: Reports: Other (See Below) Other Oncologic Surgeries/Procedures: removal of skin cancer - SUBSTANCE USE Smoking Status *Q: Never Smoker Days Per Week of Alcohol Use: 0 Recreational Drug Use History: No - HOME MEDS Home Medications: Home Meds Levothyroxine 75 mcg PO QAM 06/13/14 [History] Losartan Potassium 100 mg PO BEDTIME 06/13/14 [History] Rosuvastatin [Crestor] 5 mg PO DAILY 06/13/14 [History] Sertraline HCl [Zoloft] 50 mg PO DAILY 06/13/14 [History] Verapamil HCl [Verapamil ER] 240 mg PO DAILY 06/13/14 [History] hydrALAZINE [Apresoline] 10 mg PO Q12HR 06/13/14 [History] Cholecalciferol (Vitamin D3) [Vitamin D3] 5,000 units PO DAILY 05/29/15 [History ] Multivit-Min/FA/Lycopene/Lut [Certavite Sr-Antioxidant Tab] 1 tab PO BID [History] Acetaminophen [Tylenol] 500 mg PO DAILY PRN 01/29/18 [History] Meclizine [Antivert] 12.5 mg PO BID 01/29/18 [History] Multivitamin [One Daily] 1 tab PO DAILY 01/29/18 [History] Polyethylene Glycol 3350 [MiraLAX] 17 gram PO DAILY 01/29/18 [History] Spironolactone 50 mg PO DAILY 01/29/18 [History] Carboxymethylcellulose Sodium [Refresh Tears] 1 drop EYEBOTH DAILY PRN 01/28/19 [History] Ranitidine [Zantac] 150 mcg PO DAILY 01/28/19 [History] - CURRENT (IN HOUSE) MEDS Current Meds: Current Medications Artificial Tears (Refresh Liquigel 1%) 0 ml EYEBOTH DAILY PRN PRN Reason: DRY EYES Cholecalciferol (Vitamin D3) 5,000 unit PO DAILY [facility] Last Admin: 01/30/19 08:36 Dose: 5,000 unit Cyclobenzaprine HCl (Flexeril) 10 mg PO TID PRN PRN Reason: Muscle Spasm Last Admin: 01/30/19 09:41 Dose: 10 mg Docusate Sodium (Colace) 100 mg PO DAILY [facility] Last Admin: 01/30/19 08:35 Dose: 100 mg Famotidine (Pepcid) 20 mg PO BEDTIME [facility] Last Admin: 01/29/19 20:28 Dose: 20 mg Hydralazine HCl (Apresoline) 10 mg PO Q12H [facility] Last Admin: 01/30/19 08:37 Dose: Not Given Sodium Chloride (Normal Saline) 250 mls @ 50 mls/hr IV ASDIRECTED [facility] Last Admin: 01/30/19 12:39 Dose: 50 mls/hr Levothyroxine Sodium (Levothyroxine) 75 mcg PO QAM [facility] Last Admin: 01/30/19 08:35 Dose: 75 mcg Losartan Potassium (Cozaar) 100 mg PO BEDTIME [facility] Last Admin: 01/29/19 20:29 Dose: 100 mg Meclizine HCl (Antivert) 12.5 mg PO BID PRN PRN Reason: Dizziness Last Admin: 01/29/19 14:45 Dose: 12.5 mg Ondansetron HCl (Zofran) 4 mg IVPUSH Q4H PRN PRN Reason: Nausea/Vomiting Oxycodone HCl (Oxycodone) 5 - 10 mg PO Q4H PRN PRN Reason: Pain Last Admin: 01/30/19 11:28 Dose: 5 mg Pantoprazole Sodium (Protonix Iv) 40 mg IVPUSH Q12H [facility] Last Admin: 01/30/19 08:38 Dose: 40 mg Polyethylene Glycol (Miralax) 17 gm PO DAILY [facility] Last Admin: 01/30/19 08:36 Dose: 17 gm Rosuvastatin Calcium (Crestor) 5 mg PO DAILY [facility] Last Admin: 01/30/19 08:34 Dose: 5 mg Sertraline HCl (Zoloft) 50 mg PO DAILY [facility] Last Admin: 01/30/19 08:36 Dose: 50 mg Sodium Chloride (Saline Flush) 10 ml FLUSH ASDIRECTED PRN PRN Reason: Keep Vein Open Last Admin: 01/28/19 09:13 Dose: 10 ml Spironolactone (Aldactone) 50 mg PO DAILY [facility] Last Admin: 01/30/19 08:35 Dose: 50 mg Verapamil HCl (Verelan) 240 mg PO QPM [facility] Last Admin: 01/29/19 18:22 Dose: 240 mg Discontinued Medications Hydrocodone Bitart/Acetaminophen ([place] 325-5 Mg) 1 tab PO Q4H PRN PRN Reason: Pain Last Admin: 01/28/19 14:01 Dose: 1 tab Hydrocodone Bitart/Acetaminophen ([place] 325-5 Mg) 1 - 2 tab PO Q4H PRN PRN Reason: Pain Last Admin: 01/28/19 23:41 Dose: 2 tab Diphenhydramine HCl (Benadryl) 25 mg IVPUSH ONETIME ONE Stop: 01/30/19 09:01 Last Admin: 01/30/19 08:46 Dose: 25 mg Sodium Chloride (Normal Saline) 1,000 mls @ 125 mls/hr IV ASDIRECTED [facility] Last Admin: 01/28/19 09:13 Dose: 125 mls/hr Sodium Chloride (Normal Saline) 500 mls @ 50 mls/hr IV ASDIRECTED [facility] Stop: 01/29/19 14:00 Ketorolac Tromethamine (Toradol) 15 mg IVPUSH ONETIME ONE Stop: 01/28/19 11:33 Last Admin: 01/28/19 11:36 Dose: 15 mg
[2019-01-30] MEDS ORDERED: Propofol 200 MG/20 ML SDV ONE (13:44)
--- NOTE | 2019-01-30 14:05 | CONS ---
CONSULTING PHYSICIAN: Pratik Ashraf MD DATE OF CONSULTATION: 01/28/2019 HISTORY OF PRESENT ILLNESS: This is an 88-year-old female, who comes in with a complaint of right ankle pain. The patient subsequently is a resident at the [facility] who went to the bathroom this morning and she slipped and fell hurting her right ankle. She had significant pain and deformity noted in the emergency department. Her just recently , and she was going to be going to the in the next day. The patient states, otherwise, she has had no pain or problems to the right lower extremity before this happened. She does use ambulatory assistive devices for ambulation. The patient was seen by Dr. Rosas Frazier in the emergency room where he did splint it and was then admitted by the hospitalist for further workup for possible fixation of the right ankle fracture. PHYSICAL EXAMINATION: GENERAL: Alert. The patient is in [id number] distress, secondary to right ankle. SKIN: Intact. There is no erythema or warmth. She does have ecchymosis. She does have significant swelling noted about the right ankle at this moment with negative wrinkle sign on the lateral side. She has no proximal fibular tenderness. No pain to the right knee. She is neurovascularly intact to the medial, lateral, plantar, and first dorsal webspace, 2+ dorsalis pedis and posterior tibial pulses. No pain to the right hip with log roll. RADIOGRAPHS: Radiographs were reviewed showing a displaced right bimalleolar ankle fracture. ASSESSMENT: Right bimalleolar ankle fracture. PLAN: At this time, I did discuss with them this is usually a surgical fracture as the patient was ambulatory before this. At this time, we will plan on having the fracture splinted. She used to ice and elevate it. She is to be nonweightbearing. The patient will undergo a preoperative history and physical examination. We will plan on fixing this next Monday. We will round on the patient while she is in the hospital to see how she is progressing. BHARATH /[id number]
--- NOTE | 2019-01-30 14:33 | PCM48HPAN ---
Post Anesthesia Note - EVALUATION WITHIN 48HRS OF ANESTHETIC Vital Signs in Normal Range: Yes Patient Participated in Evaluation: Yes Respiratory Function Stable: Yes Airway Patent: Yes Cardiovascular Function Stable: Yes Hydration Status Stable: Yes Pain Control Satisfactory: Yes Nausea and Vomiting Control Satisfactory: Yes Mental Status Recovered: Yes Pulse Rate: 72 SaO2: 100 Resp Rate: 15 Temperature: 36.6 C Blood Pressure: 113/46
--- NOTE | 2019-01-30 15:10 | PCM.PN ---
- General Info Date of Service: 01/30/19 Admission Dx/Problem (Free Text): Admission Diagnosis/Problem Admission Diagnosis/Problem Fall Subjective Update: Patient states that she is having some spasming in her right leg. Hemoglobin is also down to 6.1. Yesterday we tried to give HER-2 units of packed red blood cells, but she developed a slight reaction with burning at the IV site. IV has been replaced and plan is to give her the 2 units today. Speaking with the daughter she stated that when her mother vomited yesterday it was dark vomitus. There was no gross blood. She has not had a bowel movement since admission. She is complaining of being fatigued. - Review of Systems General: Reports: Fatigue. Denies: Fever HEENT: Reports: No Symptoms Pulmonary: Reports: No Symptoms. Denies: Shortness of Breath Cardiovascular: Reports: No Symptoms. Denies: Chest Pain, Palpitations Gastrointestinal: Reports: No Symptoms. Denies: Abdominal Pain, Constipation Genitourinary: Reports: No Symptoms. Denies: Dysuria, Frequency - Patient Data Vitals - Most Recent: Last Vital Signs Temp 97.9 F 01/30/19 14:33 Pulse 72 01/30/19 14:33 Resp 15 01/30/19 14:33 BP 113/46 L 01/30/19 14:33 Pulse Ox 100 01/30/19 14:33 Weight - Most Recent: 150 lb I&O - Last 24 Hours: Intake & Output 01/29/19 01/30/19 01/30/19 22:59 06:59 14:59 Intake Total 460 650 0 Output Total 70 Balance 390 650 0 Lab Results Last 24 Hours: Laboratory Results - last 24 hr 01/29/19 01/29/19 01/29/19 Range/Units 06:20 11:05 14:00 WBC (3.98-10.04) K/mm3 RBC (3.98-5.22) M/mm3 Hgb (11.2-15.7) gm/L Hct (34.1-44.9) % MCV (79.4-94.8) fl MCH (25.6-32.2) pg MCHC (32.2-35.5) g/dl RDW Std Deviation (36.4-46.3) fL Plt Count (182-369) K/mm3 MPV (9.4-12.3) fl Neut % (Auto) (34.0-71.1) % Lymph % (Auto) (19.3-51.7) % [place] % (Auto) (4.7-12.5) % Eos % (Auto) (0.7-5.8) Baso % (Auto) (0.1-1.2) % Neut # (Auto) (1.56-6.13) K/mm3 Lymph # (Auto) (1.18-3.74) K/mm3 [place] # (Auto) (0.24-0.36) K/mm3 Eos # (Auto) (0.04-0.36) K/mm3 Baso # (Auto) (0.01-0.08) K/mm3 Manual Slide Review Sodium (136-145) mEq/L Potassium (3.5-5.1) mEq/L Chloride (98-107) mEq/L Carbon Dioxide (21-32) mEq/L Anion Gap (5-15) BUN (7-18) mg/dL Creatinine (0.55-1.02) mg/dL Est Cr Clr Drug Dosing mL/min Estimated GFR (MDRD) (>60) mL/min BUN/Creatinine Ratio (14-18) Glucose (83-115) mg/dL Calcium (8.5-10.1) mg/dL Total Bilirubin (0.2-1.0) mg/dL AST (15-37) U/L ALT (14-59) U/L Alkaline Phosphatase (46-116) U/L Total Protein (6.4-8.2) g/dl Albumin (3.4-5.0) g/dl Globulin gm/dL Albumin/Globulin Ratio (1-2) Urine Color Yellow (Yellow) Urine Appearance Slt cloudy H (Clear) Urine pH 5.5 (5.0-8.0) Ur Specific [place] 1.020 (1.005-1.030) Urine Protein 1+ H (Negative) Urine Glucose (UA) Negative (Negative) Urine Ketones Trace H (Negative) Urine Occult Blood Negative (Negative) Urine Nitrite Negative (Negative) Urine Bilirubin Negative (Negative) Urine Urobilinogen 0.2 (0.2-1.0) Ur Leukocyte Esterase Negative (Negative) Blood Type O POSITIVE Gel Antibody Screen Negative Crossmatch See Detail See Detail 01/29/19 01/30/19 01/30/19 Range/Units 17:15 05:46 05:46 WBC 9.62 (3.98-10.04) K/mm3 RBC 2.23 L (3.98-5.22) M/mm3 Hgb 7.1 L* 6.2 L* (11.2-15.7) gm/L Hct 23.0 L 20.5 L (34.1-44.9) % MCV 91.9 (79.4-94.8) fl MCH 27.8 (25.6-32.2) pg MCHC 30.2 L (32.2-35.5) g/dl RDW Std Deviation 44.0 (36.4-46.3) fL Plt Count 218 (182-369) K/mm3 MPV 10.5 (9.4-12.3) fl Neut % (Auto) 72.7 H (34.0-71.1) % Lymph % (Auto) 12.0 L (19.3-51.7) % [place] % (Auto) 13.8 H (4.7-12.5) % Eos % (Auto) 1.1 (0.7-5.8) Baso % (Auto) 0.2 (0.1-1.2) % Neut # (Auto) 6.99 H (1.56-6.13) K/mm3 Lymph # (Auto) 1.15 L (1.18-3.74) K/mm3 [place] # (Auto) 1.33 H (0.24-0.36) K/mm3 Eos # (Auto) 0.11 (0.04-0.36) K/mm3 Baso # (Auto) 0.02 (0.01-0.08) K/mm3 Manual Slide Review Abnormal smear Sodium 136 (136-145) mEq/L Potassium 4.6 (3.5-5.1) mEq/L Chloride 105 (98-107) mEq/L Carbon Dioxide 20 L (21-32) mEq/L Anion Gap 15.6 H (5-15) BUN 63 H (7-18) mg/dL Creatinine 1.3 H (0.55-1.02) mg/dL Est Cr Clr Drug Dosing 22.14 mL/min Estimated GFR (MDRD) 39 (>60) mL/min BUN/Creatinine Ratio 48.5 H (14-18) Glucose 104 (83-115) mg/dL Calcium 9.3 (8.5-10.1) mg/dL Total Bilirubin 0.4 (0.2-1.0) mg/dL AST 13 L (15-37) U/L ALT 14 (14-59) U/L Alkaline Phosphatase 48 (46-116) U/L Total Protein 5.8 L (6.4-8.2) g/dl Albumin 2.8 L (3.4-5.0) g/dl Globulin 3.0 gm/dL Albumin/Globulin Ratio 0.9 L (1-2) Urine Color (Yellow) Urine Appearance (Clear) Urine pH (5.0-8.0) Ur Specific [place] (1.005-1.030) Urine Protein (Negative) Urine Glucose (UA) (Negative) Urine Ketones (Negative) Urine Occult Blood (Negative) Urine Nitrite (Negative) Urine Bilirubin (Negative) Urine Urobilinogen (0.2-1.0) Ur Leukocyte Esterase (Negative) Blood Type Gel Antibody Screen Crossmatch Jaosn Results Last 24 Hours: Microbiology 01/28/19 08:44 Aerobic Blood Culture - Preliminary Blood - Venous NO GROWTH AFTER 2 DAYS Anaerobic Blood Culture - Preliminary NO GROWTH AFTER 2 DAYS 01/28/19 09:00 Aerobic Blood Culture - Preliminary Blood - Venous - Lab Draw NO GROWTH AFTER 2 DAYS Anaerobic Blood Culture - Preliminary NO GROWTH AFTER 2 DAYS Med Orders - Current: Current Medications Artificial Tears (Refresh Liquigel 1%) 0 ml EYEBOTH DAILY PRN PRN Reason: DRY EYES Cholecalciferol (Vitamin D3) 5,000 unit PO DAILY [facility] Last Admin: 01/30/19 08:36 Dose: 5,000 unit Cyclobenzaprine HCl (Flexeril) 10 mg PO TID PRN PRN Reason: Muscle Spasm Last Admin: 01/30/19 09:41 Dose: 10 mg Docusate Sodium (Colace) 100 mg PO DAILY [facility] Last Admin: 01/30/19 08:35 Dose: 100 mg Famotidine (Pepcid) 20 mg PO BEDTIME [facility] Last Admin: 01/29/19 20:28 Dose: 20 mg Hydralazine HCl (Apresoline) 10 mg PO Q12H [facility] Last Admin: 01/30/19 08:37 Dose: Not Given Sodium Chloride (Normal Saline) 250 mls @ 50 mls/hr IV ASDIRECTED [facility] Last Admin: 01/30/19 12:39 Dose: 50 mls/hr Levothyroxine Sodium (Levothyroxine) 75 mcg PO QAM [facility] Last Admin: 01/30/19 08:35 Dose: 75 mcg Losartan Potassium (Cozaar) 100 mg PO BEDTIME [facility] Last Admin: 01/29/19 20:29 Dose: 100 mg Meclizine HCl (Antivert) 12.5 mg PO BID PRN PRN Reason: Dizziness Last Admin: 01/29/19 14:45 Dose: 12.5 mg Ondansetron HCl (Zofran) 4 mg IVPUSH Q4H PRN PRN Reason: Nausea/Vomiting Oxycodone HCl (Oxycodone) 5 - 10 mg PO Q4H PRN PRN Reason: Pain Last Admin: 01/30/19 11:28 Dose: 5 mg Pantoprazole Sodium (Protonix Iv) 40 mg IVPUSH Q12H [facility] Last Admin: 01/30/19 08:38 Dose: 40 mg Polyethylene Glycol (Miralax) 17 gm PO DAILY [facility] Last Admin: 01/30/19 08:36 Dose: 17 gm Rosuvastatin Calcium (Crestor) 5 mg PO DAILY [facility] Last Admin: 01/30/19 08:34 Dose: 5 mg Sertraline HCl (Zoloft) 50 mg PO DAILY [facility] Last Admin: 01/30/19 08:36 Dose: 50 mg Sodium Chloride (Saline Flush) 10 ml FLUSH ASDIRECTED PRN PRN Reason: Keep Vein Open Last Admin: 01/28/19 09:13 Dose: 10 ml Spironolactone (Aldactone) 50 mg PO DAILY [facility] Last Admin: 01/30/19 08:35 Dose: 50 mg Verapamil HCl (Verelan) 240 mg PO QPM [facility] Last Admin: 01/29/19 18:22 Dose: 240 mg Discontinued Medications Hydrocodone Bitart/Acetaminophen ([place] 325-5 Mg) 1 tab PO Q4H PRN PRN Reason: Pain Last Admin: 01/28/19 14:01 Dose: 1 tab Hydrocodone Bitart/Acetaminophen ([place] 325-5 Mg) 1 - 2 tab PO Q4H PRN PRN Reason: Pain Last Admin: 01/28/19 23:41 Dose: 2 tab Diphenhydramine HCl (Benadryl) 25 mg IVPUSH ONETIME ONE Stop: 01/30/19 09:01 Last Admin: 01/30/19 08:46 Dose: 25 mg Sodium Chloride (Normal Saline) 1,000 mls @ 125 mls/hr IV ASDIRECTED [facility] Last Admin: 01/28/19 09:13 Dose: 125 mls/hr Sodium Chloride (Normal Saline) 500 mls @ 50 mls/hr IV ASDIRECTED [facility] Stop: 01/29/19 14:00 Ketorolac Tromethamine (Toradol) 15 mg IVPUSH ONETIME ONE Stop: 01/28/19 11:33 Last Admin: 01/28/19 11:36 Dose: 15 mg Propofol (Diprivan 20 Ml) Confirm Administered Dose 200 mg .ROUTE .STK-MED ONE Stop: 01/30/19 13:45 - Exam General: Alert, Oriented, Other (Pale appearing) HEENT: Pupils Equal, Pupils Reactive, Other (Conjunctivae pale) Neck: Supple Lungs: Clear to Auscultation, Normal Respiratory Effort Cardiovascular: Regular Rate, Regular Rhythm GI/Abdominal Exam: Normal Bowel Sounds, Soft, Non-Tender, No Organomegaly, No Distention Extremities: Normal Inspection, Normal Range of Motion, No Pedal Edema Skin: Warm, Dry, Intact Psy/Mental Status: Alert, Normal Mood - Problem List & Annotations (1) HTN (hypertension) SNOMED Code(s): 14966639 Code(s): I10 - ESSENTIAL (PRIMARY) HYPERTENSION Status: Acute Current Visit: Yes (2) Anemia SNOMED Code(s): 473907992 Code(s): D64.9 - ANEMIA, UNSPECIFIED Status: Acute Current Visit: Yes Qualifiers: Anemia type: other cause Other causes of anemia: other cause, not classified Qualified Code(s): D64.89 - Other specified anemias (3) Bimalleolar fracture of right ankle SNOMED Code(s): 821708508 Code(s): S82.841A - DISPLACED BIMALLEOLAR FRACTURE OF RIGHT LOWER LEG, INIT Status: Acute Current Visit: Yes Qualifiers: Encounter type: initial encounter Fracture type: closed Qualified Code(s) : S82.841A - Displaced bimalleolar fracture of right lower leg, initial encounter for closed fracture (4) Fall SNOMED Code(s): 0141360, 098753802 Code(s): W19.XXXA - UNSPECIFIED FALL, INITIAL ENCOUNTER Status: Acute Priority: High Current Visit: Yes Qualifiers: Encounter type: initial encounter Qualified Code(s): W19.XXXA - Unspecified fall, initial encounter - Problem List Review Problem List Initiated/Reviewed/Updated: Yes - My Orders Last 24 Hours: My Active Orders 01/29/19 18:00 Verapamil [Verelan] 240 mg PO QPM 01/29/19 21:00 Famotidine [Pepcid] 20 mg PO BEDTIME Pantoprazole [ProTONIX IV] 40 mg IVPUSH Q12H 01/30/19 07:57 Transfuse Red Blood Cells [COMM] Routine 01/30/19 08:00 Sodium Chloride 0.9% [Normal Saline] 250 ml IV ASDIRECTED 01/30/19 11:29 Consult to Physician [CONS] Routine 01/30/19 11:30 Notify Provider Consults [RC] ASDIRECTED 01/30/19 11:44 Bladder Scan [RC] ASDIRECTED 01/30/19 Lunch Clear Liquid Diet [DIET] - Plan Plan:: Right bimalleolar fracture * Dr. Tucker consulted * Patient will need placement in long-term facility Anemia * Surgery consult for upper endoscopy for possible upper GI bleed * Patient did have her EGD done this morning. There was a large gastric ulcer that is not bleeding. This is likely the cause of her blood loss. Dr. Morales's formal procedure note is pending. * Received 2 units packed red blood cells today * Recheck hemoglobin tonight and tomorrow morning. Gastric ulcer * Continue Protonix 40 mg IV twice a day at this time. * Dr. Morales mentioned he did not biopsy because of concern of dislodging clot. * Stool for H. pylori and IgG levels for H. pylori Hypertension * hydralazine 10 mg twice a day, losartan 100 mg daily, verapamil SR 240 mg daily. Hold spironolactone Fall * Patient states that she felt weak. She apparently has had several falls. She will benefit from long-term facility and rehabilitation in the long-term. * Patient has a history of dizziness, but she does not think that was the cause of her fall this morning. Dizziness/history of orthostatic hypotension * Continue meclizine when necessary. * Follow hemoglobin overnight. Discharge planning: Discharge to long-term facility when available VTE prophylaxis: SCD. No anticoagulation secondary to upper GI bleed
[2019-01-30] MEDS: Verapamil 120 MG Cap.ER PO SCH (17:29)
--- NOTE | 2019-01-30 20:08 | CONS ---
CONSULTING PHYSICIAN: Dale Morales MD DATE OF CONSULTATION: 01/30/2019 REASON FOR CONSULTATION: Acute blood-loss anemia, question of GI bleed. HISTORY OF PRESENT ILLNESS: The patient is an 88-year-old female, who is a resident of a local custodial. She was admitted for bimalleolar right ankle fracture 2 days ago on the . Over the course of her hospital stay, her hemoglobin has dropped from 9 to 6 today. She is currently getting 2 units transfusion. She has had only a small smear of blood inadequate for analysis for Hemoccult testing. She denies any pain, previous melena, bloody stools. She does admit to some weakness and dizziness. She has a chronic history of anemia with no clear etiology, and the patient has continued to drop her hemoglobin over the course of her brief hospital stay. Her surgery was delayed due to her medical condition. PRIOR MEDICAL HISTORY: Significant for gastroesophageal reflux disease, hypertension, high cholesterol, recurrent urinary tract infections, osteoarthritis, osteoporosis, history of CVA, anxiety, depression, hypothyroidism, skin cancer. PRIOR SURGICAL HISTORY: She has had cataract surgery, appendectomy, cholecystectomy, hysterectomy. FAMILY HISTORY: Significant for type 2 diabetes. SOCIAL HISTORY: She is a nonsmoker. Denies illicit drugs. Denies alcohol abuse. MEDICATIONS: Her medications are extensive: Levothyroxine, losartan, Crestor, Zoloft, verapamil, hydralazine, cholecalciferol, multivitamins, acetaminophen, meclizine, spironolactone, and MiraLAX for constipation. ALLERGIES: To hydralazine, hydrochlorothiazide, simvastatin. REVIEW OF SYSTEMS: It is a bit difficult to obtain due to somnolence, probably secondary to her profound anemia. She is arousable. PHYSICAL EXAMINATION: GENERAL: She is alert, but does have episodes of somnolence. VITAL SIGNS: Temperature 98.1, pulse 78, respiration 20, blood pressure 99/71. HEAD AND NECK: Normocephalic, atraumatic. EYES: She is anicteric. LUNGS: Clear to auscultation bilaterally. HEART: Regular rate and rhythm. ABDOMEN: Soft, nontender, nondistended. No palpable masses. EXTREMITIES: No clubbing, cyanosis, or edema. INTEGUMENT: She is somewhat pale. No rashes or lesions. NEUROLOGIC: Her cranial nerves are grossly intact. Moving all 4 extremities. Sensation preserved. The right ankle is splinted. LABORATORY DATA: Labs were reviewed. Notably, her hemoglobin is 6.2 today prior to 2 units transfusion, yesterday 7.2, the day before was 9. Chemistries were reviewed. Creatinine is 1.3, down from 1.4 yesterday. GFR is 48.5, up from 32.9 yesterday. ASSESSMENT: 1. Bimalleolar right ankle fracture. 2. Acute blood loss anemia. 3. Question of gastrointestinal bleeding. PLAN: She is probably not able to tolerate a bowel prep. However, I think most likely, her source will be upper gastrointestinal. At this point, she is being evaluated by Anesthesia for possible anesthesia for an EGD. I think this will give us biggest bang for our hartley, so I plan on doing this as soon as the OR is available, and as long as she is cleared by Anesthesia. If this is nonrevealing, consideration for colonoscopy can be made. BHARATH /[id number] MARYBETH
[2019-01-30] MEDS: Famotidine 20 MG Tab PO SCH (20:24)
[2019-01-30] MEDS: Losartan 100 MG Tab PO SCH (20:25)
--- NOTE | 2019-01-30 20:27 | OR ---
DATE OF OPERATION: 01/30/2019 SURGEON: Dale Morales MD PREOPERATIVE DIAGNOSIS: Acute blood loss anemia. POSTOPERATIVE DIAGNOSIS: 1. Acute blood loss anemia. 2. Shahbaz ulcer within a large sliding hiatal hernia. FINDINGS: She had a large blood clot covering, it is clearly a Shahbaz ulcer within a large sliding hiatal hernia. It looks like the bleeding has stopped. There is no ghulam blood or bright red blood within the stomach or duodenum. I found no other ulcerations. OPERATION PERFORMED: Esophagogastroduodenoscopy. ANESTHESIA: Procedural sedation. PATHOLOGY: None. COMPLICATIONS: None. ESTIMATED BLOOD LOSS: None. DISPOSITION: Stable at the end of the procedure. INDICATION: The patient is a pleasant 88-year-old female, who came in with a bimalleolar right ankle fracture. During her hospital stay, she was noted to have a rapid drop in her hemoglobin from 9 to 6. She is getting a 2 units transfusion currently. She has had no bright red blood per rectum, however, she has not had a bowel movement since her arrival. The patient was transfused 2 units this morning and booked for an EGD. She was fully informed of the major risks, benefits, and alternatives in the presence of her daughter. Her daughter gave informed consent. Please see my H and P for further details of that discussion. She was fully informed of the possibility of further surgery, bleeding, aspiration pneumonia, laryngeal spasm, and recurrence of the bleeding. She gave informed consent for what was done. DESCRIPTION OF PROCEDURE: The patient was brought to the gastric suite and placed in the left lateral decubitus position. She was given procedural sedation. A bite block was placed. I introduced the endoscope into the proximal esophagus. I advanced the scope past the cricopharyngeus muscle through the length of the esophagus. I found somewhat tortuous esophagus. I also identified a very large sliding hiatal hernia. Within this hiatal hernia, I found a large blood clot, which I did not dislodge. I advanced the scope beyond the blood clot into the stomach. I thoroughly investigated stomach for any food ulcers within the abdominal cavity and none were identified. I flexed the scope into the 4th portion of the duodenum, thoroughly investigated the duodenum for any mucosal lesions or ulcers and none were identified. I retroflexed scope the GE junction, and I confirmed the diagnosis of sliding hiatal hernia. There was no evidence of a paraesophageal hernia here. I then straightened the scope and brought the scope back into the esophagus without dislodging the blood clot. The scope was withdrawn evacuating the air on the way out. PLAN: She should avoid NSAIDs. Supportive care. I have a discussion with her daughter regarding next steps. BHARATH /[id number] MARYBETH
[2019-01-31] MEDS: oxyCODONE 5 MG Tab PO PRN ×3 (04:13→20:23)
[2019-01-31] MEDS: Cyclobenzaprine 10 MG Tab PO PRN (04:13)
[2019-01-31] MEDS: Sertraline 50 MG Tab PO SCH (09:03)
[2019-01-31] MEDS: Polyethylene Glycol 3350 Powder 17 GM Packet PO SCH (09:03)
[2019-01-31] MEDS: Rosuvastatin 10 MG Tab PO SCH (09:04)
[2019-01-31] MEDS: Levothyroxine 75 MCG Tab PO SCH (09:04)
[2019-01-31] MEDS: Docusate Sodium 100 MG Cap PO SCH (09:04)
[2019-01-31] MEDS: Cholecalciferol (Vitamin D3) 5,000 UNIT Tab PO SCH (09:04)
[2019-01-31] MEDS: Pantoprazole 40 MG Vial IVPUSH SCH ×2 (09:05→20:23)
--- NOTE | 2019-01-31 12:16 | PCM.PN ---
- General Info Date of Service: 01/31/19 Admission Dx/Problem (Free Text): Admission Diagnosis/Problem Admission Diagnosis/Problem Fall Subjective Update: January 31, 2019 Patient had an EGD done yesterday which showed a large gastric ulcer. It was not bleeding. There was a large clot and biopsies were not done to prevent clot disruption. H pylori antibody was negative. She is generally doing better. Unfortunately she will not be able to be discharged today so we can follow her hemoglobin another 24 hours. January 30, 2019 Patient states that she is having some spasming in her right leg. Hemoglobin is also down to 6.1. Yesterday we tried to give her 2 units of packed red blood cells, but she developed a slight reaction with burning at the IV site. IV has been replaced and plan is to give her the 2 units today. Speaking with the daughter she stated that when her mother vomited yesterday it was dark vomitus. There was no gross blood. She has not had a bowel movement since admission. She is complaining of being fatigued. Functional Status: Reports: Pain Controlled - Review of Systems General: Reports: No Symptoms HEENT: Reports: No Symptoms Pulmonary: Reports: No Symptoms Cardiovascular: Reports: No Symptoms Gastrointestinal: Reports: No Symptoms - Patient Data Vitals - Most Recent: Last Vital Signs Temp 99.0 F 01/31/19 07:41 Pulse 81 01/31/19 09:02 Resp 18 01/31/19 07:41 BP 93/60 01/31/19 07:41 Pulse Ox 91 L 01/31/19 10:46 Weight - Most Recent: 151 lb 4.8 oz I&O - Last 24 Hours: Intake & Output 01/30/19 01/31/19 01/31/19 22:59 06:59 14:59 Intake Total 770 300 320 Output Total 850 200 825 Balance -80 100 -505 Lab Results Last 24 Hours: Laboratory Results - last 24 hr 01/29/19 01/30/19 01/31/19 Range/Units 06:20 05:46 05:11 WBC 6.76 (3.98-10.04) K/mm3 RBC 2.78 L (3.98-5.22) M/mm3 Hgb 7.9 L (11.2-15.7) gm/L Hct 25.0 L (34.1-44.9) % MCV 89.9 (79.4-94.8) fl MCH 28.4 (25.6-32.2) pg MCHC 31.6 L (32.2-35.5) g/dl RDW Std Deviation 46.6 H (36.4-46.3) fL Plt Count 158 L (182-369) K/mm3 MPV 10.1 (9.4-12.3) fl Neut % (Auto) 70.1 (34.0-71.1) % Lymph % (Auto) 12.0 L (19.3-51.7) % [place] % (Auto) 14.2 H (4.7-12.5) % Eos % (Auto) 3.3 (0.7-5.8) Baso % (Auto) 0.3 (0.1-1.2) % Neut # (Auto) 4.74 (1.56-6.13) K/mm3 Lymph # (Auto) 0.81 L (1.18-3.74) K/mm3 [place] # (Auto) 0.96 H (0.24-0.36) K/mm3 Eos # (Auto) 0.22 (0.04-0.36) K/mm3 Baso # (Auto) 0.02 (0.01-0.08) K/mm3 Manual Slide Review Abnormal smear Sodium (136-145) mEq/L Potassium (3.5-5.1) mEq/L Chloride (98-107) mEq/L Carbon Dioxide (21-32) mEq/L Anion Gap (5-15) BUN (7-18) mg/dL Creatinine (0.55-1.02) mg/dL Est Cr Clr Drug Dosing mL/min Estimated GFR (MDRD) (>60) mL/min BUN/Creatinine Ratio (14-18) Glucose (83-115) mg/dL Calcium (8.5-10.1) mg/dL Total Bilirubin (0.2-1.0) mg/dL AST (15-37) U/L ALT (14-59) U/L Alkaline Phosphatase (46-116) U/L Total Protein (6.4-8.2) g/dl Albumin (3.4-5.0) g/dl Globulin gm/dL Albumin/Globulin Ratio (1-2) H. pylori IgG Antibody Negative (NEGATIVE) Blood Type O POSITIVE Gel Antibody Screen Negative Crossmatch See Detail 01/31/19 Range/Units 05:11 WBC (3.98-10.04) K/mm3 RBC (3.98-5.22) M/mm3 Hgb (11.2-15.7) gm/L Hct (34.1-44.9) % MCV (79.4-94.8) fl MCH (25.6-32.2) pg MCHC (32.2-35.5) g/dl RDW Std Deviation (36.4-46.3) fL Plt Count (182-369) K/mm3 MPV (9.4-12.3) fl Neut % (Auto) (34.0-71.1) % Lymph % (Auto) (19.3-51.7) % [place] % (Auto) (4.7-12.5) % Eos % (Auto) (0.7-5.8) Baso % (Auto) (0.1-1.2) % Neut # (Auto) (1.56-6.13) K/mm3 Lymph # (Auto) (1.18-3.74) K/mm3 [place] # (Auto) (0.24-0.36) K/mm3 Eos # (Auto) (0.04-0.36) K/mm3 Baso # (Auto) (0.01-0.08) K/mm3 Manual Slide Review Sodium 137 (136-145) mEq/L Potassium 4.5 (3.5-5.1) mEq/L Chloride 107 (98-107) mEq/L Carbon Dioxide 20 L (21-32) mEq/L Anion Gap 14.5 (5-15) BUN 41 H (7-18) mg/dL Creatinine 1.1 H (0.55-1.02) mg/dL Est Cr Clr Drug Dosing 26.16 mL/min Estimated GFR (MDRD) 47 (>60) mL/min BUN/Creatinine Ratio 37.3 H (14-18) Glucose 95 (83-115) mg/dL Calcium 9.0 (8.5-10.1) mg/dL Total Bilirubin 0.9 (0.2-1.0) mg/dL AST 14 L (15-37) U/L ALT 13 L (14-59) U/L Alkaline Phosphatase 49 (46-116) U/L Total Protein 5.5 L (6.4-8.2) g/dl Albumin 2.7 L (3.4-5.0) g/dl Globulin 2.8 gm/dL Albumin/Globulin Ratio 1.0 (1-2) H. pylori IgG Antibody (NEGATIVE) Blood Type Gel Antibody Screen Crossmatch Jason Results Last 24 Hours: Microbiology 01/28/19 08:44 Aerobic Blood Culture - Preliminary Blood - Venous NO GROWTH AFTER 3 DAYS Anaerobic Blood Culture - Preliminary NO GROWTH AFTER 3 DAYS 01/28/19 09:00 Aerobic Blood Culture - Preliminary Blood - Venous - Lab Draw NO GROWTH AFTER 3 DAYS Anaerobic Blood Culture - Preliminary NO GROWTH AFTER 3 DAYS Med Orders - Current: Current Medications Artificial Tears (Refresh Liquigel 1%) 0 ml EYEBOTH DAILY PRN PRN Reason: DRY EYES Cholecalciferol (Vitamin D3) 5,000 unit PO DAILY [facility] Last Admin: 01/31/19 09:04 Dose: 5,000 unit Cyclobenzaprine HCl (Flexeril) 10 mg PO TID PRN PRN Reason: Muscle Spasm Last Admin: 01/31/19 04:13 Dose: 10 mg Docusate Sodium (Colace) 100 mg PO DAILY [facility] Last Admin: 01/31/19 09:04 Dose: 100 mg Famotidine (Pepcid) 20 mg PO BEDTIME [facility] Last Admin: 01/30/19 20:24 Dose: 20 mg Latanoprost (Xalatan 0.005% Ophth Soln) 0 ml EYEBOTH BEDTIME [facility] Levothyroxine Sodium (Levothyroxine) 75 mcg PO QAM [facility] Last Admin: 01/31/19 09:04 Dose: 75 mcg Losartan Potassium (Cozaar) 100 mg PO BEDTIME [facility] Last Admin: 01/30/19 20:25 Dose: 100 mg Meclizine HCl (Antivert) 12.5 mg PO BID PRN PRN Reason: Dizziness Last Admin: 01/29/19 14:45 Dose: 12.5 mg Ondansetron HCl (Zofran) 4 mg IVPUSH Q4H PRN PRN Reason: Nausea/Vomiting Oxycodone HCl (Oxycodone) 5 - 10 mg PO Q4H PRN PRN Reason: Pain Last Admin: 01/31/19 09:03 Dose: 5 mg Pantoprazole Sodium (Protonix Iv) 40 mg IVPUSH Q12H [facility] Last Admin: 01/31/19 09:05 Dose: 40 mg Polyethylene Glycol (Miralax) 17 gm PO DAILY [facility] Last Admin: 01/31/19 09:03 Dose: 17 gm Rosuvastatin Calcium (Crestor) 5 mg PO DAILY [facility] Last Admin: 01/31/19 09:04 Dose: 5 mg Sertraline HCl (Zoloft) 50 mg PO DAILY [facility] Last Admin: 01/31/19 09:03 Dose: 50 mg Sodium Chloride (Saline Flush) 10 ml FLUSH ASDIRECTED PRN PRN Reason: Keep Vein Open Last Admin: 01/28/19 09:13 Dose: 10 ml Verapamil HCl (Verelan) 240 mg PO QPM [facility] Last Admin: 01/30/19 17:29 Dose: 240 mg Discontinued Medications Hydrocodone Bitart/Acetaminophen ([place] 325-5 Mg) 1 tab PO Q4H PRN PRN Reason: Pain Last Admin: 01/28/19 14:01 Dose: 1 tab Hydrocodone Bitart/Acetaminophen ([place] 325-5 Mg) 1 - 2 tab PO Q4H PRN PRN Reason: Pain Last Admin: 01/28/19 23:41 Dose: 2 tab Diphenhydramine HCl (Benadryl) 25 mg IVPUSH ONETIME ONE Stop: 01/30/19 09:01 Last Admin: 01/30/19 08:46 Dose: 25 mg Hydralazine HCl (Apresoline) 10 mg PO Q12H [facility] Last Admin: 01/30/19 20:24 Dose: 10 mg Sodium Chloride (Normal Saline) 1,000 mls @ 125 mls/hr IV ASDIRECTED [facility] Last Admin: 01/28/19 09:13 Dose: 125 mls/hr Sodium Chloride (Normal Saline) 500 mls @ 50 mls/hr IV ASDIRECTED [facility] Stop: 01/29/19 14:00 Sodium Chloride (Normal Saline) 250 mls @ 50 mls/hr IV ASDIRECTED [facility] Last Admin: 01/30/19 12:39 Dose: 50 mls/hr Ketorolac Tromethamine (Toradol) 15 mg IVPUSH ONETIME ONE Stop: 01/28/19 11:33 Last Admin: 01/28/19 11:36 Dose: 15 mg Propofol (Diprivan 20 Ml) Confirm Administered Dose 200 mg .ROUTE .STK-MED ONE Stop: 01/30/19 13:45 Spironolactone (Aldactone) 50 mg PO DAILY [facility] Last Admin: 01/30/19 08:35 Dose: 50 mg - Exam Quality Assessment: Supplemental Oxygen General: Alert, Oriented, Other (Pale) HEENT: Pupils Equal, Pupils Reactive Neck: Supple Lungs: Clear to Auscultation, Normal Respiratory Effort Cardiovascular: Regular Rate, Regular Rhythm GI/Abdominal Exam: Normal Bowel Sounds, Soft, Non-Tender, No Distention Extremities: Normal Inspection, No Pedal Edema - Problem List & Annotations (1) Blood loss anemia SNOMED Code(s): 532341967 Code(s): D50.0 - IRON DEFICIENCY ANEMIA SECONDARY TO BLOOD LOSS (CHRONIC) Status: Acute Current Visit: Yes (2) HTN (hypertension) SNOMED Code(s): 90302132 Code(s): I10 - ESSENTIAL (PRIMARY) HYPERTENSION Status: Acute Current Visit: Yes (3) Bimalleolar fracture of right ankle SNOMED Code(s): 125198856 Code(s): S82.841A - DISPLACED BIMALLEOLAR FRACTURE OF RIGHT LOWER LEG, INIT Status: Acute Current Visit: Yes Qualifiers: Encounter type: initial encounter Fracture type: closed Qualified Code(s) : S82.841A - Displaced bimalleolar fracture of right lower leg, initial encounter for closed fracture (4) Fall SNOMED Code(s): 4108735, 668367345 Code(s): W19.XXXA - UNSPECIFIED FALL, INITIAL ENCOUNTER Status: Acute Priority: High Current Visit: Yes Qualifiers: Encounter type: initial encounter Qualified Code(s): W19.XXXA - Unspecified fall, initial encounter - Problem List Review Problem List Initiated/Reviewed/Updated: Yes - My Orders Last 24 Hours: My Active Orders 01/30/19 11:29 Consult to Physician [CONS] Routine 01/30/19 11:30 Notify Provider Consults [RC] ASDIRECTED 01/30/19 11:44 Bladder Scan [RC] PRN 01/30/19 15:19 H.PYLORI ANTIGEN, STOOL [OP] Routine 01/30/19 16:34 Urinary Catheter Assessment [RC] .PRN 01/30/19 16:45 Insert Pack Catheter [Insert Urinary Catheter] [OM.PC] Q24H 01/30/19 Dinner Full Liquid Diet [DIET] 01/31/19 21:00 Latanoprost [Xalatan 0.005% Ophth Soln] 0 ml EYEBOTH BEDTIME 02/01/19 05:11 BASIC METABOLIC PANEL,BMP [CHEM] AM CBC WITH AUTO DIFF [HEME] AM MAGNESIUM [CHEM] AM - Plan Plan:: Right bimalleolar fracture * Dr. Tucker consulted * Patient will need placement in long term facility * No surgery and tell peptic ulcer is completely resolved. Blood loss anemia Anemia * Large gastric ulcer on endoscopy.GI bleed * Received 2 units packed red blood cells yesterday * Recheck hemoglobin tonight and tomorrow morning. Gastric ulcer * Continue Protonix 40 mg IV twice a day at this time. * Dr. Morales mentioned he did not biopsy because of concern of dislodging clot. * Stool for H. pylori and IgG levels for H. pylori. IgG levels were negative. Hypertension * Hold hydralazine 10 mg twice a day and prolactin 50 mg daily because of low blood pressure, * losartan 100 mg daily, verapamil SR 240 mg daily. Fall * Patient states that she felt weak. She apparently has had several falls. She will benefit from long term facility and rehabilitation in the long-term. * Patient has a history of dizziness, but she does not think that was the cause of her fall this morning. Dizziness/history of orthostatic hypotension * Continue meclizine when necessary. * Follow hemoglobin overnight. Discharge planning: Patient will be held overnight to evaluate hemoglobin the morning. I've been informed that she will not be able to go to her skilled care facility until Monday. VTE prophylaxis: SCD. No anticoagulation secondary to upper GI bleed
[2019-01-31] MEDS: hydrALAZINE 10 MG Tab PO SCH (12:27)
[2019-01-31] MEDS: Verapamil 120 MG Cap.ER PO SCH (17:22)
[2019-01-31] MEDS: Losartan 100 MG Tab PO SCH (20:23)
[2019-01-31] MEDS: Famotidine 20 MG Tab PO SCH (20:23)
[2019-01-31] MEDS ORDERED: Latanoprost 0.005% Ophth Soln 2.5 ML Bottle EYEBOTH SCH (21:00)
[2019-02-01] MEDS: Polyethylene Glycol 3350 Powder 17 GM Packet PO SCH (08:38)
[2019-02-01] MEDS: Latanoprost 0.005% Ophth Soln 2.5 ML Bottle EYEBOTH SCH ×3 (08:38→20:49)
[2019-02-01] MEDS: Sertraline 50 MG Tab PO SCH (08:39)
[2019-02-01] MEDS: Rosuvastatin 10 MG Tab PO SCH (08:39)
[2019-02-01] MEDS: Levothyroxine 75 MCG Tab PO SCH (08:39)
[2019-02-01] MEDS: Docusate Sodium 100 MG Cap PO SCH (08:39)
[2019-02-01] MEDS: Cholecalciferol (Vitamin D3) 5,000 UNIT Tab PO SCH (08:39)
[2019-02-01] MEDS: Pantoprazole 40 MG Vial IVPUSH SCH (08:40)
[2019-02-01] MEDS: Ferrous Sulfate 325 MG Tab PO SCH ×2 (11:02→17:47)
[2019-02-01] MEDS: Ascorbic Acid 500 MG Tab PO SCH ×2 (11:02→17:47)
[2019-02-01] MEDS ORDERED: Bisacodyl 10 MG Supp RECTAL ONE (11:07)
[2019-02-01] MEDS: oxyCODONE 5 MG Tab PO PRN (15:40)
[2019-02-01] MEDS: Verapamil 120 MG Cap.ER PO SCH (17:48)
[2019-02-01] MEDS: Famotidine 20 MG Tab PO SCH (20:49)
[2019-02-01] MEDS: Losartan 100 MG Tab PO SCH (20:49)
[2019-02-01] MEDS: Pantoprazole 40 MG Tab.CR PO SCH (20:49)
[2019-02-02] MEDS: Levothyroxine 75 MCG Tab PO SCH (07:01)
[2019-02-02] MEDS: Ferrous Sulfate 325 MG Tab PO SCH ×3 (07:01→17:34)
[2019-02-02] MEDS: Ascorbic Acid 500 MG Tab PO SCH ×3 (07:01→17:34)
[2019-02-02] MEDS ORDERED: Sodium Chloride 0.9% 250 ML IV SCH (09:30)
[2019-02-02] MEDS: Polyethylene Glycol 3350 Powder 17 GM Packet PO SCH (09:45)
[2019-02-02] MEDS: Rosuvastatin 10 MG Tab PO SCH (09:45)
[2019-02-02] MEDS: Cholecalciferol (Vitamin D3) 5,000 UNIT Tab PO SCH (09:46)
[2019-02-02] MEDS: Pantoprazole 40 MG Tab.CR PO SCH (09:46)
[2019-02-02] MEDS: Docusate Sodium 100 MG Cap PO SCH (09:46)
[2019-02-02] MEDS: Sertraline 50 MG Tab PO SCH (09:46)
[2019-02-02] MEDS: Acetaminophen/HYDROcodone 325-5 MG Tab PO PRN ×2 (09:47→21:08)
--- NOTE | 2019-02-02 14:30 | PCM.PN ---
- General Info Date of Service: 02/01/19 Admission Dx/Problem (Free Text): Admission Diagnosis/Problem Admission Diagnosis/Problem Fall Subjective Update: January 31, 2019 Patient had an EGD done yesterday which showed a large gastric ulcer. It was not bleeding. There was a large clot and biopsies were not done to prevent clot disruption. H pylori antibody was negative. She is generally doing better. Unfortunately she will not be able to be discharged today so we can follow her hemoglobin another 24 hours. January 30, 2019 Patient states that she is having some spasming in her right leg. Hemoglobin is also down to 6.1. Yesterday we tried to give her 2 units of packed red blood cells, but she developed a slight reaction with burning at the IV site. IV has been replaced and plan is to give her the 2 units today. Speaking with the daughter she stated that when her mother vomited yesterday it was dark vomitus. There was no gross blood. She has not had a bowel movement since admission. She is complaining of being fatigued. Functional Status: Reports: Pain Controlled - Review of Systems General: Reports: Fatigue HEENT: Reports: No Symptoms Pulmonary: Reports: No Symptoms Cardiovascular: Reports: No Symptoms Gastrointestinal: Reports: No Symptoms. Denies: Abdominal Pain - Patient Data Vitals - Most Recent: Last Vital Signs Temp 98.2 F 02/02/19 12:50 Pulse 62 02/02/19 12:52 Resp 18 02/02/19 12:52 BP 104/72 02/02/19 12:52 Pulse Ox 97 02/02/19 12:52 Weight - Most Recent: 149 lb 8 oz I&O - Last 24 Hours: Intake & Output 02/01/19 02/02/19 02/02/19 22:59 06:59 14:59 Intake Total 780 250 546 Output Total 1050 650 Balance -270 -400 546 Lab Results Last 24 Hours: Laboratory Results - last 24 hr 01/29/19 02/02/19 02/02/19 Range/Units 06:20 06:02 06:02 Hgb 7.4 L (11.2-15.7) gm/L Hct 23.7 L (34.1-44.9) % Blood Type O POSITIVE Gel Antibody Screen Negative Crossmatch See Detail See Detail Jason Results Last 24 Hours: Microbiology 01/28/19 08:44 Aerobic Blood Culture - Preliminary Blood - Venous NO GROWTH AFTER 5 DAYS Anaerobic Blood Culture - Preliminary NO GROWTH AFTER 5 DAYS 01/28/19 09:00 Aerobic Blood Culture - Preliminary Blood - Venous - Lab Draw NO GROWTH AFTER 5 DAYS Anaerobic Blood Culture - Preliminary NO GROWTH AFTER 5 DAYS 02/01/19 13:50 Helicobacter pylori Antigen - Final Stool / Feces NEGATIVE [facility] Med Orders - Current: Current Medications Hydrocodone Bitart/Acetaminophen ([place] 325-5 Mg) 1 tab PO Q4H PRN PRN Reason: Pain Last Admin: 02/02/19 09:47 Dose: 1 tab Artificial Tears (Refresh Liquigel 1%) 0 ml EYEBOTH DAILY PRN PRN Reason: DRY EYES Ascorbic Acid (Vitamin C) 250 mg PO TIDMEALS [facility] Last Admin: 02/02/19 11:23 Dose: 250 mg Cholecalciferol (Vitamin D3) 5,000 unit PO DAILY [facility] Last Admin: 02/02/19 09:46 Dose: 5,000 unit Cyclobenzaprine HCl (Flexeril) 10 mg PO TID PRN PRN Reason: Muscle Spasm Last Admin: 01/31/19 04:13 Dose: 10 mg Docusate Sodium (Colace) 100 mg PO DAILY [facility] Last Admin: 02/02/19 09:46 Dose: 100 mg Famotidine (Pepcid) 20 mg PO BEDTIME [facility] Last Admin: 02/01/19 20:49 Dose: 20 mg Ferrous Sulfate (Ferrous Sulfate) 325 mg PO TIDMEALS [facility] Last Admin: 02/02/19 11:23 Dose: 325 mg Sodium Chloride (Normal Saline) 250 mls @ 150 mls/hr IV ASDIRECTED [facility] Last Admin: 02/02/19 12:05 Dose: 150 mls/hr Latanoprost (Xalatan 0.005% Ophth Soln) 0 ml EYEBOTH BEDTIME [facility] Last Admin: 02/01/19 20:49 Dose: 1 drop Levothyroxine Sodium (Levothyroxine) 75 mcg PO QAM [facility] Last Admin: 02/02/19 07:01 Dose: 75 mcg Losartan Potassium (Cozaar) 100 mg PO BEDTIME [facility] Last Admin: 02/01/19 20:49 Dose: Not Given Meclizine HCl (Antivert) 12.5 mg PO BID PRN PRN Reason: Dizziness Last Admin: 01/29/19 14:45 Dose: 12.5 mg Melatonin (Melatonin) 3 mg PO BEDTIME PRN PRN Reason: Insomnia Ondansetron HCl (Zofran) 4 mg IVPUSH Q4H PRN PRN Reason: Nausea/Vomiting Pantoprazole Sodium (Protonix) 40 mg PO Q12H [facility] Last Admin: 02/02/19 09:46 Dose: 40 mg Polyethylene Glycol (Miralax) 17 gm PO DAILY [facility] Last Admin: 02/02/19 09:45 Dose: 17 gm Rosuvastatin Calcium (Crestor) 5 mg PO DAILY [facility] Last Admin: 02/02/19 09:45 Dose: 5 mg Sertraline HCl (Zoloft) 50 mg PO DAILY [facility] Last Admin: 02/02/19 09:46 Dose: 50 mg Sodium Chloride (Saline Flush) 10 ml FLUSH ASDIRECTED PRN PRN Reason: Keep Vein Open Last Admin: 01/28/19 09:13 Dose: 10 ml Verapamil HCl (Verelan) 240 mg PO QPM [facility] Last Admin: 02/01/19 17:48 Dose: 240 mg Discontinued Medications Hydrocodone Bitart/Acetaminophen ([place] 325-5 Mg) 1 tab PO Q4H PRN PRN Reason: Pain Last Admin: 01/28/19 14:01 Dose: 1 tab Hydrocodone Bitart/Acetaminophen ([place] 325-5 Mg) 1 - 2 tab PO Q4H PRN PRN Reason: Pain Last Admin: 01/28/19 23:41 Dose: 2 tab Bisacodyl (Dulcolax) 10 mg RECTAL ONETIME ONE Stop: 02/01/19 11:08 Last Admin: 02/01/19 11:49 Dose: 10 mg Diphenhydramine HCl (Benadryl) 25 mg IVPUSH ONETIME ONE Stop: 01/30/19 09:01 Last Admin: 01/30/19 08:46 Dose: 25 mg Hydralazine HCl (Apresoline) 10 mg PO Q12H [facility] Last Admin: 01/31/19 12:27 Dose: Not Given Sodium Chloride (Normal Saline) 1,000 mls @ 125 mls/hr IV ASDIRECTED [facility] Last Admin: 01/28/19 09:13 Dose: 125 mls/hr Sodium Chloride (Normal Saline) 500 mls @ 50 mls/hr IV ASDIRECTED [facility] Stop: 01/29/19 14:00 Sodium Chloride (Normal Saline) 250 mls @ 50 mls/hr IV ASDIRECTED [facility] Last Admin: 01/30/19 12:39 Dose: 50 mls/hr Ketorolac Tromethamine (Toradol) 15 mg IVPUSH ONETIME ONE Stop: 01/28/19 11:33 Last Admin: 01/28/19 11:36 Dose: 15 mg Latanoprost (Xalatan 0.005% Ophth Soln) 0 ml EYEBOTH BEDTIME [facility] Latanoprost (Xalatan 0.005% Ophth Soln) 0 ml EYEBOTH DAILY [facility] Last Admin: 02/01/19 08:52 Dose: Not Given Oxycodone HCl (Oxycodone) 5 - 10 mg PO Q4H PRN PRN Reason: Pain Last Admin: 02/01/19 15:40 Dose: 5 mg Pantoprazole Sodium (Protonix Iv) 40 mg IVPUSH Q12H [facility] Last Admin: 02/01/19 08:40 Dose: 40 mg Propofol (Diprivan 20 Ml) Confirm Administered Dose 200 mg .ROUTE .STK-MED ONE Stop: 01/30/19 13:45 Spironolactone (Aldactone) 50 mg PO DAILY [facility] Last Admin: 01/30/19 08:35 Dose: 50 mg - Exam Quality Assessment: Supplemental Oxygen General: Alert, Oriented Lungs: Clear to Auscultation, Normal Respiratory Effort Cardiovascular: Regular Rate, Regular Rhythm GI/Abdominal Exam: Normal Bowel Sounds, Soft, Non-Tender, No Distention - Problem List & Annotations (1) Blood loss anemia SNOMED Code(s): 273002554 Code(s): D50.0 - IRON DEFICIENCY ANEMIA SECONDARY TO BLOOD LOSS (CHRONIC) Status: Acute Current Visit: Yes (2) HTN (hypertension) SNOMED Code(s): 91868485 Code(s): I10 - ESSENTIAL (PRIMARY) HYPERTENSION Status: Acute Current Visit: Yes (3) Bimalleolar fracture of right ankle SNOMED Code(s): 118545885 Code(s): S82.841A - DISPLACED BIMALLEOLAR FRACTURE OF RIGHT LOWER LEG, INIT Status: Acute Current Visit: Yes Qualifiers: Encounter type: initial encounter Fracture type: closed Qualified Code(s) : S82.841A - Displaced bimalleolar fracture of right lower leg, initial encounter for closed fracture (4) Fall SNOMED Code(s): 3728388, 449489800 Code(s): W19.XXXA - UNSPECIFIED FALL, INITIAL ENCOUNTER Status: Acute Priority: High Current Visit: Yes Qualifiers: Encounter type: initial encounter Qualified Code(s): W19.XXXA - Unspecified fall, initial encounter - Problem List Review Problem List Initiated/Reviewed/Updated: Yes - My Orders Last 24 Hours: My Active Orders 02/01/19 17:38 Acetaminophen/HYDROcodone [[place] 325-5 MG] 1 tab PO Q4H PRN 02/01/19 21:00 Latanoprost [Xalatan 0.005% Ophth Soln] 0 ml EYEBOTH BEDTIME Pantoprazole [ProTONIX] 40 mg PO Q12H 02/02/19 07:50 Transfuse PRBC [Transfuse Red Blood Cells] [COMM] Routine 02/02/19 09:17 Melatonin 3 mg PO BEDTIME PRN 02/02/19 09:30 Sodium Chloride 0.9% [Normal Saline] 250 ml IV ASDIRECTED 02/02/19 Lunch Full Liquid Diet [DIET] 02/03/19 05:11 CBC WITH AUTO DIFF [HEME] AM CMP [COMPREHENSIVE METABOLIC PN,CMP] [CHEM] AM HEMOGLOBIN/HEMATOCRIT,HH [HEME] AM MAGNESIUM [CHEM] AM 02/04/19 05:11 HEMOGLOBIN/HEMATOCRIT,HH [HEME] AM 02/05/19 05:11 HEMOGLOBIN/HEMATOCRIT,HH [HEME] AM - Plan Plan:: Right bimalleolar fracture * Dr. Tucker consulted * [facility] need [facility] in [facility] * No surgery and tell peptic ulcer is completely resolved. Blood loss anemia Anemia * Large gastric ulcer on endoscopy.GI bleed * Received 2 units packed red blood cells * Recheck hemoglobin stable. Gastric ulcer * Switch Protonix 40 mg IV twice a day to by mouth twice day at this time. * Dr. Morales mentioned he did not biopsy because of concern of dislodging clot. * Stool for H. pylori and IgG levels for H. pylori are negative. Hypertension * Hold hydralazine 10 mg twice a day and prolactin 50 mg daily because of low blood pressure, * losartan 100 mg daily, verapamil SR 240 mg daily. Fall * Patient states that she felt weak. She apparently has had several falls. She will benefit from [facility] facility and rehabilitation in the long-term. * Patient has a history of dizziness, but she does not think that was the cause of her fall this morning. Dizziness/history of orthostatic hypotension * Continue meclizine when necessary. * Follow hemoglobin overnight. Discharge planning: Patient will be held overnight to evaluate hemoglobin the morning. I've been informed that she will not be able to go to her skilled care facility until Monday. VTE prophylaxis: SCD. No anticoagulation secondary to upper GI bleed
--- NOTE | 2019-02-02 14:34 | PCM.PN ---
- General Info Date of Service: 02/02/19 Admission Dx/Problem (Free Text): Admission Diagnosis/Problem Admission Diagnosis/Problem Fall Subjective Update: Last night Patient had low blood pressure so we held her losartan. This morning her hemoglobin has dropped below 8. No ghulam blood. She denies any abdominal pain. No fever or chills. - Review of Systems General: Reports: No Symptoms HEENT: Reports: No Symptoms Pulmonary: Reports: No Symptoms Cardiovascular: Reports: No Symptoms Gastrointestinal: Reports: No Symptoms, Abdominal Pain, Constipation - Patient Data Vitals - Most Recent: Last Vital Signs Temp 98.2 F 02/02/19 12:50 Pulse 62 02/02/19 12:52 Resp 18 02/02/19 12:52 BP 104/72 02/02/19 12:52 Pulse Ox 97 02/02/19 12:52 Weight - Most Recent: 149 lb 8 oz I&O - Last 24 Hours: Intake & Output 02/01/19 02/02/19 02/02/19 22:59 06:59 14:59 Intake Total 780 250 546 Output Total 1050 650 Balance -270 -400 546 Lab Results Last 24 Hours: Laboratory Results - last 24 hr 01/29/19 02/02/19 02/02/19 Range/Units 06:20 06:02 06:02 Hgb 7.4 L (11.2-15.7) gm/L Hct 23.7 L (34.1-44.9) % Blood Type O POSITIVE Gel Antibody Screen Negative Crossmatch See Detail See Detail Jasno Results Last 24 Hours: Microbiology 01/28/19 08:44 Aerobic Blood Culture - Preliminary Blood - Venous NO GROWTH AFTER 5 DAYS Anaerobic Blood Culture - Preliminary NO GROWTH AFTER 5 DAYS 01/28/19 09:00 Aerobic Blood Culture - Preliminary Blood - Venous - Lab Draw NO GROWTH AFTER 5 DAYS Anaerobic Blood Culture - Preliminary NO GROWTH AFTER 5 DAYS 02/01/19 13:50 Helicobacter pylori Antigen - Final Stool / Feces NEGATIVE [facility] Med Orders - Current: Current Medications Hydrocodone Bitart/Acetaminophen ([place] 325-5 Mg) 1 tab PO Q4H PRN PRN Reason: Pain Last Admin: 02/02/19 09:47 Dose: 1 tab Artificial Tears (Refresh Liquigel 1%) 0 ml EYEBOTH DAILY PRN PRN Reason: DRY EYES Ascorbic Acid (Vitamin C) 250 mg PO TIDMEALS [facility] Last Admin: 02/02/19 11:23 Dose: 250 mg Cholecalciferol (Vitamin D3) 5,000 unit PO DAILY [facility] Last Admin: 02/02/19 09:46 Dose: 5,000 unit Cyclobenzaprine HCl (Flexeril) 10 mg PO TID PRN PRN Reason: Muscle Spasm Last Admin: 01/31/19 04:13 Dose: 10 mg Docusate Sodium (Colace) 100 mg PO DAILY [facility] Last Admin: 02/02/19 09:46 Dose: 100 mg Famotidine (Pepcid) 20 mg PO BEDTIME [facility] Last Admin: 02/01/19 20:49 Dose: 20 mg Ferrous Sulfate (Ferrous Sulfate) 325 mg PO TIDMEALS [facility] Last Admin: 02/02/19 11:23 Dose: 325 mg Sodium Chloride (Normal Saline) 250 mls @ 150 mls/hr IV ASDIRECTED [facility] Last Admin: 02/02/19 12:05 Dose: 150 mls/hr Latanoprost (Xalatan 0.005% Oph Soln) 0 ml EYEBOTH BEDTIME [facility] Last Admin: 02/01/19 20:49 Dose: 1 drop Levothyroxine Sodium (Levothyroxine) 75 mcg PO QAM [facility] Last Admin: 02/02/19 07:01 Dose: 75 mcg Losartan Potassium (Cozaar) 100 mg PO BEDTIME [facility] Last Admin: 02/01/19 20:49 Dose: Not Given Meclizine HCl (Antivert) 12.5 mg PO BID PRN PRN Reason: Dizziness Last Admin: 01/29/19 14:45 Dose: 12.5 mg Melatonin (Melatonin) 3 mg PO BEDTIME PRN PRN Reason: Insomnia Ondansetron HCl (Zofran) 4 mg IVPUSH Q4H PRN PRN Reason: Nausea/Vomiting Pantoprazole Sodium (Protonix) 40 mg PO Q12H [facility] Last Admin: 02/02/19 09:46 Dose: 40 mg Polyethylene Glycol (Miralax) 17 gm PO DAILY [facility] Last Admin: 02/02/19 09:45 Dose: 17 gm Rosuvastatin Calcium (Crestor) 5 mg PO DAILY [facility] Last Admin: 02/02/19 09:45 Dose: 5 mg Sertraline HCl (Zoloft) 50 mg PO DAILY [facility] Last Admin: 02/02/19 09:46 Dose: 50 mg Sodium Chloride (Saline Flush) 10 ml FLUSH ASDIRECTED PRN PRN Reason: Keep Vein Open Last Admin: 01/28/19 09:13 Dose: 10 ml Verapamil HCl (Verelan) 240 mg PO QPM [facility] Last Admin: 02/01/19 17:48 Dose: 240 mg Discontinued Medications Hydrocodone Bitart/Acetaminophen ([place] 325-5 Mg) 1 tab PO Q4H PRN PRN Reason: Pain Last Admin: 01/28/19 14:01 Dose: 1 tab Hydrocodone Bitart/Acetaminophen ([place] 325-5 Mg) 1 - 2 tab PO Q4H PRN PRN Reason: Pain Last Admin: 01/28/19 23:41 Dose: 2 tab Bisacodyl (Dulcolax) 10 mg RECTAL ONETIME ONE Stop: 02/01/19 11:08 Last Admin: 02/01/19 11:49 Dose: 10 mg Diphenhydramine HCl (Benadryl) 25 mg IVPUSH ONETIME ONE Stop: 01/30/19 09:01 Last Admin: 01/30/19 08:46 Dose: 25 mg Hydralazine HCl (Apresoline) 10 mg PO Q12H [facility] Last Admin: 01/31/19 12:27 Dose: Not Given Sodium Chloride (Normal Saline) 1,000 mls @ 125 mls/hr IV ASDIRECTED [facility] Last Admin: 01/28/19 09:13 Dose: 125 mls/hr Sodium Chloride (Normal Saline) 500 mls @ 50 mls/hr IV ASDIRECTED [facility] Stop: 01/29/19 14:00 Sodium Chloride (Normal Saline) 250 mls @ 50 mls/hr IV ASDIRECTED [facility] Last Admin: 01/30/19 12:39 Dose: 50 mls/hr Ketorolac Tromethamine (Toradol) 15 mg IVPUSH ONETIME ONE Stop: 01/28/19 11:33 Last Admin: 01/28/19 11:36 Dose: 15 mg Latanoprost (Xalatan 0.005% Ophth Soln) 0 ml EYEBOTH BEDTIME [facility] Latanoprost (Xalatan 0.005% Ophth Soln) 0 ml EYEBOTH DAILY [facility] Last Admin: 02/01/19 08:52 Dose: Not Given Oxycodone HCl (Oxycodone) 5 - 10 mg PO Q4H PRN PRN Reason: Pain Last Admin: 02/01/19 15:40 Dose: 5 mg Pantoprazole Sodium (Protonix Iv) 40 mg IVPUSH Q12H [facility] Last Admin: 02/01/19 08:40 Dose: 40 mg Propofol (Diprivan 20 Ml) Confirm Administered Dose 200 mg .ROUTE .STK-MED ONE Stop: 01/30/19 13:45 Spironolactone (Aldactone) 50 mg PO DAILY [facility] Last Admin: 01/30/19 08:35 Dose: 50 mg - Exam Quality Assessment: Supplemental Oxygen General: Alert, Oriented HEENT: Pupils Equal, Pupils Reactive Neck: Supple Lungs: Clear to Auscultation, Normal Respiratory Effort Cardiovascular: Regular Rate, Regular Rhythm GI/Abdominal Exam: Normal Bowel Sounds, Soft, Non-Tender, No Distention - Problem List & Annotations (1) Blood loss anemia SNOMED Code(s): 073488083 Code(s): D50.0 - IRON DEFICIENCY ANEMIA SECONDARY TO BLOOD LOSS (CHRONIC) Status: Acute Current Visit: Yes (2) HTN (hypertension) SNOMED Code(s): 79562360 Code(s): I10 - ESSENTIAL (PRIMARY) HYPERTENSION Status: Acute Current Visit: Yes (3) Bimalleolar fracture of right ankle SNOMED Code(s): 181595183 Code(s): S82.841A - DISPLACED BIMALLEOLAR FRACTURE OF RIGHT LOWER LEG, INIT Status: Acute Current Visit: Yes Qualifiers: Encounter type: initial encounter Fracture type: closed Qualified Code(s) : S82.841A - Displaced bimalleolar fracture of right lower leg, initial encounter for closed fracture (4) Fall SNOMED Code(s): 7620029, 764326857 Code(s): W19.XXXA - UNSPECIFIED FALL, INITIAL ENCOUNTER Status: Acute Priority: High Current Visit: Yes Qualifiers: Encounter type: initial encounter Qualified Code(s): W19.XXXA - Unspecified fall, initial encounter - Problem List Review Problem List Initiated/Reviewed/Updated: Yes - My Orders Last 24 Hours: My Active Orders 02/01/19 17:38 Acetaminophen/HYDROcodone [[place] 325-5 MG] 1 tab PO Q4H PRN 02/01/19 21:00 Latanoprost [Xalatan 0.005% Ophth Soln] 0 ml EYEBOTH BEDTIME Pantoprazole [ProTONIX] 40 mg PO Q12H 02/02/19 07:50 Transfuse PRBC [Transfuse Red Blood Cells] [COMM] Routine 02/02/19 09:17 Melatonin 3 mg PO BEDTIME PRN 02/02/19 09:30 Sodium Chloride 0.9% [Normal Saline] 250 ml IV ASDIRECTED 02/02/19 Lunch Full Liquid Diet [DIET] 02/03/19 05:11 CBC WITH AUTO DIFF [HEME] AM CMP [COMPREHENSIVE METABOLIC PN,CMP] [CHEM] AM HEMOGLOBIN/HEMATOCRIT,HH [HEME] AM MAGNESIUM [CHEM] AM 02/04/19 05:11 HEMOGLOBIN/HEMATOCRIT,HH [HEME] AM 02/05/19 05:11 HEMOGLOBIN/HEMATOCRIT,HH [HEME] AM - Plan Plan:: Right bimalleolar fracture * Dr. Tucker consulted * Patient will need placement in shelter facility * No surgery and tell peptic ulcer is completely resolved. Blood loss anemia Anemia * Large gastric ulcer on endoscopy.GI bleed * Hemoglobin has dropped to 7.4 * Give 2 units packed red blood cells * Recheck hemoglobin today and tomorrow. Gastric ulcer * Continue Protonix 40 mg by mouth twice day * Stool for H. pylori and IgG levels for H. pylori are negative. Hypertension * Hold hydralazine 10 mg twice a day , spironolactone 50 mg daily, and losartan 100 mg daily because of low blood pressure, * verapamil SR 240 mg daily. Fall * Patient states that she felt weak. She apparently has had several falls. She will benefit from shelter facility and rehabilitation in the long-term. * Patient has a history of dizziness, but she does not think that was the cause of her fall this morning. Dizziness/history of orthostatic hypotension * Continue meclizine when necessary. * Follow hemoglobin overnight. Discharge planning: Patient will be held overnight to evaluate hemoglobin the morning. I've been informed that she will not be able to go to her skilled care facility until Monday. VTE prophylaxis: SCD. No anticoagulation secondary to upper GI bleed
[2019-02-02] MEDS: Verapamil 120 MG Cap.ER PO SCH (17:33)
[2019-02-02] MEDS: Pantoprazole 40 MG Vial IVPUSH SCH (20:03)
[2019-02-02] MEDS: Latanoprost 0.005% Ophth Soln 2.5 ML Bottle EYEBOTH SCH (20:05)
[2019-02-02] MEDS: Famotidine 20 MG Tab PO SCH (20:06)
[2019-02-02] MEDS: Melatonin 3 MG Tab PO PRN (21:07)
[2019-02-03] MEDS: Ascorbic Acid 500 MG Tab PO SCH ×3 (06:22→17:25)
[2019-02-03] MEDS: Ferrous Sulfate 325 MG Tab PO SCH ×3 (06:23→17:25)
[2019-02-03] MEDS: Levothyroxine 75 MCG Tab PO SCH (06:23)
[2019-02-03] MEDS: Pantoprazole 40 MG Vial IVPUSH SCH ×2 (09:29→21:27)
[2019-02-03] MEDS: Rosuvastatin 10 MG Tab PO SCH (09:29)
[2019-02-03] MEDS ORDERED: Magnesium Sulfate/Water 4 GM in Premix Bag 1 BAG IV ONE (09:30)
[2019-02-03] MEDS: Sertraline 50 MG Tab PO SCH (09:30)
[2019-02-03] MEDS: Cholecalciferol (Vitamin D3) 5,000 UNIT Tab PO SCH (09:30)
[2019-02-03] MEDS: Polyethylene Glycol 3350 Powder 17 GM Packet PO SCH (09:30)
[2019-02-03] MEDS: Docusate Sodium 100 MG Cap PO SCH (09:30)
[2019-02-03] MEDS: Acetaminophen/HYDROcodone 325-5 MG Tab PO PRN ×2 (09:45→19:27)
--- NOTE | 2019-02-03 13:45 | PCM.PN ---
- General Info Date of Service: 02/03/19 Admission Dx/Problem (Free Text): Admission Diagnosis/Problem Admission Diagnosis/Problem Fall Subjective Update: Last night Patient had low blood pressure so we held her losartan. This morning her hemoglobin has dropped below 8. No ghulam blood. She denies any abdominal pain. No fever or chills. Functional Status: Reports: Pain Controlled - Review of Systems General: Reports: No Symptoms HEENT: Reports: No Symptoms Pulmonary: Reports: No Symptoms. Denies: Shortness of Breath, Cough Cardiovascular: Reports: No Symptoms. Denies: Chest Pain, Palpitations Gastrointestinal: Reports: No Symptoms. Denies: Abdominal Pain, Constipation, Difficulty Swallowing - Patient Data Vitals - Most Recent: Last Vital Signs Temp 97.9 F 02/03/19 08:02 Pulse 63 02/03/19 08:02 Resp 20 02/03/19 08:02 BP 114/69 02/03/19 08:02 Pulse Ox 95 02/03/19 08:02 Weight - Most Recent: 151 lb I&O - Last 24 Hours: Intake & Output 02/02/19 02/03/19 02/03/19 22:59 06:59 14:59 Intake Total 897 400 Output Total 350 700 Balance 547 -300 Lab Results Last 24 Hours: Laboratory Results - last 24 hr 02/02/19 02/02/19 02/03/19 Range/Units 06:02 15:35 05:58 WBC 6.03 (3.98-10.04) K/mm3 RBC 3.45 L (3.98-5.22) M/mm3 Hgb 10.4 L D 10.1 L (11.2-15.7) gm/L Hct 32.7 L 31.0 L (34.1-44.9) % MCV 89.9 (79.4-94.8) fl MCH 29.3 (25.6-32.2) pg MCHC 32.6 (32.2-35.5) g/dl RDW Std Deviation 46.9 H (36.4-46.3) fL Plt Count 164 L (182-369) K/mm3 MPV 10.0 (9.4-12.3) fl Neut % (Auto) 70.4 (34.0-71.1) % Lymph % (Auto) 11.9 L (19.3-51.7) % [place]rill % (Auto) 14.8 H (4.7-12.5) % Eos % (Auto) 2.5 (0.7-5.8) Baso % (Auto) 0.2 (0.1-1.2) % Neut # (Auto) 4.25 (1.56-6.13) K/mm3 Lymph # (Auto) 0.72 L (1.18-3.74) K/mm3 [place]rill # (Auto) 0.89 H (0.24-0.36) K/mm3 Eos # (Auto) 0.15 (0.04-0.36) K/mm3 Baso # (Auto) 0.01 (0.01-0.08) K/mm3 Sodium (136-145) mEq/L Potassium (3.5-5.1) mEq/L Chloride (98-107) mEq/L Carbon Dioxide (21-32) mEq/L Anion Gap (5-15) BUN (7-18) mg/dL Creatinine (0.55-1.02) mg/dL Est Cr Clr Drug Dosing mL/min Estimated GFR (MDRD) (>60) mL/min BUN/Creatinine Ratio (14-18) Glucose (83-115) mg/dL Calcium (8.5-10.1) mg/dL Magnesium (1.8-2.4) mg/dl Total Bilirubin (0.2-1.0) mg/dL AST (15-37) U/L ALT (14-59) U/L Alkaline Phosphatase (46-116) U/L Total Protein (6.4-8.2) g/dl Albumin (3.4-5.0) g/dl Globulin gm/dL Albumin/Globulin Ratio (1-2) Crossmatch See Detail 02/03/19 Range/Units 05:58 WBC (3.98-10.04) K/mm3 RBC (3.98-5.22) M/mm3 Hgb (11.2-15.7) gm/L Hct (34.1-44.9) % MCV (79.4-94.8) fl MCH (25.6-32.2) pg MCHC (32.2-35.5) g/dl RDW Std Deviation (36.4-46.3) fL Plt Count (182-369) K/mm3 MPV (9.4-12.3) fl Neut % (Auto) (34.0-71.1) % Lymph % (Auto) (19.3-51.7) % [place]rill % (Auto) (4.7-12.5) % Eos % (Auto) (0.7-5.8) Baso % (Auto) (0.1-1.2) % Neut # (Auto) (1.56-6.13) K/mm3 Lymph # (Auto) (1.18-3.74) K/mm3 [place] # (Auto) (0.24-0.36) K/mm3 Eos # (Auto) (0.04-0.36) K/mm3 Baso # (Auto) (0.01-0.08) K/mm3 Sodium 138 (136-145) mEq/L Potassium 4.4 (3.5-5.1) mEq/L Chloride 105 (98-107) mEq/L Carbon Dioxide 24 (21-32) mEq/L Anion Gap 13.4 (5-15) BUN 20 H (7-18) mg/dL Creatinine 1.0 (0.55-1.02) mg/dL Est Cr Clr Drug Dosing 28.78 mL/min Estimated GFR (MDRD) 52 (>60) mL/min BUN/Creatinine Ratio 20.0 H (14-18) Glucose 91 (83-115) mg/dL Calcium 9.4 (8.5-10.1) mg/dL Magnesium 1.6 L (1.8-2.4) mg/dl Total Bilirubin 1.0 (0.2-1.0) mg/dL AST 15 (15-37) U/L ALT 15 (14-59) U/L Alkaline Phosphatase 55 (46-116) U/L Total Protein 5.3 L (6.4-8.2) g/dl Albumin 2.5 L (3.4-5.0) g/dl Globulin 2.8 gm/dL Albumin/Globulin Ratio 0.9 L (1-2) Crossmatch Jason Results Last 24 Hours: Microbiology 01/28/19 08:44 Aerobic Blood Culture - Preliminary Blood - Venous NO GROWTH AFTER 6 DAYS Anaerobic Blood Culture - Preliminary NO GROWTH AFTER 6 DAYS 01/28/19 09:00 Aerobic Blood Culture - Preliminary Blood - Venous - Lab Draw NO GROWTH AFTER 6 DAYS Anaerobic Blood Culture - Preliminary NO GROWTH AFTER 6 DAYS Med Orders - Current: Current Medications Hydrocodone Bitart/Acetaminophen ([place] 325-5 Mg) 1 tab PO Q4H PRN PRN Reason: Pain Last Admin: 02/03/19 09:45 Dose: 1 tab Artificial Tears (Refresh Liquigel 1%) 0 ml EYEBOTH DAILY PRN PRN Reason: DRY EYES Ascorbic Acid (Vitamin C) 250 mg PO TIDMEALS [facility] Last Admin: 02/03/19 12:30 Dose: 250 mg Cholecalciferol (Vitamin D3) 5,000 unit PO DAILY [facility] Last Admin: 02/03/19 09:30 Dose: 5,000 unit Cyclobenzaprine HCl (Flexeril) 10 mg PO TID PRN PRN Reason: Muscle Spasm Last Admin: 01/31/19 04:13 Dose: 10 mg Docusate Sodium (Colace) 100 mg PO DAILY [facility] Last Admin: 02/03/19 09:30 Dose: 100 mg Famotidine (Pepcid) 20 mg PO BEDTIME [facility] Last Admin: 02/02/19 20:06 Dose: 20 mg Ferrous Sulfate (Ferrous Sulfate) 325 mg PO TIDMEALS [facility] Last Admin: 02/03/19 12:30 Dose: 325 mg Sodium Chloride (Normal Saline) 250 mls @ 150 mls/hr IV ASDIRECTED [facility] Last Admin: 02/02/19 12:05 Dose: 150 mls/hr Latanoprost (Xalatan 0.005% Oph Soln) 0 ml EYEBOTH BEDTIME [facility] Last Admin: 02/02/19 20:05 Dose: 1 drop Levothyroxine Sodium (Levothyroxine) 75 mcg PO DAILY@0600 [facility] Last Admin: 02/03/19 06:23 Dose: 75 mcg Losartan Potassium (Cozaar) 100 mg PO BEDTIME [facility] Last Admin: 02/01/19 20:49 Dose: Not Given Meclizine HCl (Antivert) 12.5 mg PO BID PRN PRN Reason: Dizziness Last Admin: 01/29/19 14:45 Dose: 12.5 mg Melatonin (Melatonin) 3 mg PO BEDTIME PRN PRN Reason: Insomnia Last Admin: 02/02/19 21:07 Dose: 3 mg Ondansetron HCl (Zofran) 4 mg IVPUSH Q4H PRN PRN Reason: Nausea/Vomiting Pantoprazole Sodium (Protonix Iv) 40 mg IVPUSH Q12H [facility] Last Admin: 02/03/19 09:29 Dose: 40 mg Polyethylene Glycol (Miralax) 17 gm PO DAILY [facility] Last Admin: 02/03/19 09:30 Dose: 17 gm Rosuvastatin Calcium (Crestor) 5 mg PO DAILY [facility] Last Admin: 02/03/19 09:29 Dose: 5 mg Sertraline HCl (Zoloft) 50 mg PO DAILY [facility] Last Admin: 02/03/19 09:30 Dose: 50 mg Sodium Chloride (Saline Flush) 10 ml FLUSH ASDIRECTED PRN PRN Reason: Keep Vein Open Last Admin: 01/28/19 09:13 Dose: 10 ml Verapamil HCl (Verelan) 240 mg PO QPM [facility] Last Admin: 02/02/19 17:33 Dose: 240 mg Discontinued Medications Hydrocodone Bitart/Acetaminophen ([place] 325-5 Mg) 1 tab PO Q4H PRN PRN Reason: Pain Last Admin: 01/28/19 14:01 Dose: 1 tab Hydrocodone Bitart/Acetaminophen ([place] 325-5 Mg) 1 - 2 tab PO Q4H PRN PRN Reason: Pain Last Admin: 01/28/19 23:41 Dose: 2 tab Bisacodyl (Dulcolax) 10 mg RECTAL ONETIME ONE Stop: 02/01/19 11:08 Last Admin: 02/01/19 11:49 Dose: 10 mg Diphenhydramine HCl (Benadryl) 25 mg IVPUSH ONETIME ONE Stop: 01/30/19 09:01 Last Admin: 01/30/19 08:46 Dose: 25 mg Hydralazine HCl (Apresoline) 10 mg PO Q12H [facility] Last Admin: 01/31/19 12:27 Dose: Not Given Sodium Chloride (Normal Saline) 1,000 mls @ 125 mls/hr IV ASDIRECTED [facility] Last Admin: 01/28/19 09:13 Dose: 125 mls/hr Sodium Chloride (Normal Saline) 500 mls @ 50 mls/hr IV ASDIRECTED [facility] Stop: 01/29/19 14:00 Sodium Chloride (Normal Saline) 250 mls @ 50 mls/hr IV ASDIRECTED [facility] Last Admin: 01/30/19 12:39 Dose: 50 mls/hr Magnesium Sulfate 4 gm/ Premix 50 mls @ 12.5 mls/hr IV ONETIME ONE Stop: 02/03/19 13:29 Last Admin: 02/03/19 09:45 Dose: 12.5 mls/hr Ketorolac Tromethamine (Toradol) 15 mg IVPUSH ONETIME ONE Stop: 01/28/19 11:33 Last Admin: 01/28/19 11:36 Dose: 15 mg Latanoprost (Xalatan 0.005% Ophth Soln) 0 ml EYEBOTH BEDTIME [facility] Latanoprost (Xalatan 0.005% Ophth Soln) 0 ml EYEBOTH DAILY [facility] Last Admin: 02/01/19 08:52 Dose: Not Given Levothyroxine Sodium (Levothyroxine) 75 mcg PO QAM [facility] Last Admin: 02/02/19 07:01 Dose: 75 mcg Oxycodone HCl (Oxycodone) 5 - 10 mg PO Q4H PRN PRN Reason: Pain Last Admin: 02/01/19 15:40 Dose: 5 mg Pantoprazole Sodium (Protonix Iv) 40 mg IVPUSH Q12H [facility] Last Admin: 02/01/19 08:40 Dose: 40 mg Pantoprazole Sodium (Protonix) 40 mg PO Q12H [facility] Last Admin: 02/02/19 09:46 Dose: 40 mg Propofol (Diprivan 20 Ml) Confirm Administered Dose 200 mg .ROUTE .STK-MED ONE Stop: 01/30/19 13:45 Spironolactone (Aldactone) 50 mg PO DAILY [facility] Last Admin: 01/30/19 08:35 Dose: 50 mg - Exam General: Alert, Oriented HEENT: Pupils Equal, Pupils Reactive Neck: Supple Lungs: Clear to Auscultation, Normal Respiratory Effort Cardiovascular: Regular Rate, Regular Rhythm GI/Abdominal Exam: Normal Bowel Sounds, Soft, Non-Tender, No Organomegaly, No Distention Extremities: Normal Inspection, Normal Range of Motion, Non-Tender, No Pedal Edema - Problem List & Annotations (1) Blood loss anemia SNOMED Code(s): 987591507 Code(s): D50.0 - IRON DEFICIENCY ANEMIA SECONDARY TO BLOOD LOSS (CHRONIC) Status: Acute Current Visit: Yes (2) HTN (hypertension) SNOMED Code(s): 16860850 Code(s): I10 - ESSENTIAL (PRIMARY) HYPERTENSION Status: Acute Current Visit: Yes (3) Bimalleolar fracture of right ankle SNOMED Code(s): 467448367 Code(s): S82.841A - DISPLACED BIMALLEOLAR FRACTURE OF RIGHT LOWER LEG, INIT Status: Acute Current Visit: Yes Qualifiers: Encounter type: initial encounter Fracture type: closed Qualified Code(s) : S82.841A - Displaced bimalleolar fracture of right lower leg, initial encounter for closed fracture (4) Fall SNOMED Code(s): 7921150, 964399216 Code(s): W19.XXXA - UNSPECIFIED FALL, INITIAL ENCOUNTER Status: Acute Priority: High Current Visit: Yes Qualifiers: Encounter type: initial encounter Qualified Code(s): W19.XXXA - Unspecified fall, initial encounter - Problem List Review Problem List Initiated/Reviewed/Updated: Yes - My Orders Last 24 Hours: My Active Orders 02/02/19 15:23 Activity as Tolerated [RC] .Routine 02/02/19 17:03 RT Incentive Spirometry [RC] Q1HWA 02/02/19 20:00 Pantoprazole [ProTONIX IV] 40 mg IVPUSH Q12H 02/02/19 20:57 Patient Status [ADT] Routine 02/03/19 06:00 Levothyroxine 75 mcg PO DAILY@0600 02/04/19 05:11 MAGNESIUM [CHEM] AM 02/04/19 06:00 HEMOGLOBIN/HEMATOCRIT,HH [HEME] Routine - Plan Plan:: Right bimalleolar fracture * Dr. Tucker consulted * Patient will need placement in fpc facility * No surgery and tell peptic ulcer is completely resolved. Blood loss anemia Anemia * Large gastric ulcer on endoscopy.GI bleed * Hemoglobin dropped to 7.4 and was given 2 units packed red blood cells. * Hemoglobin stable today at 10.1 and will recheck in the morning Gastric ulcer * Continue Protonix 40 mg IV twice day * Stool for H. pylori and IgG levels for H. pylori are negative. Hypertension * Hold hydralazine 10 mg twice a day , spironolactone 50 mg daily, and losartan 100 mg daily because of low blood pressure, * verapamil SR 240 mg daily. Fall * Patient states that she felt weak. She apparently has had several falls. She will benefit from fpc facility and rehabilitation in the long-term. * Patient has a history of dizziness, but she does not think that was the cause of her fall this morning. Dizziness/history of orthostatic hypotension * Continue meclizine when necessary. * Follow hemoglobin overnight. Discharge planning: Patient will be held overnight to evaluate hemoglobin the morning. I've been informed that she will not be able to go to her skilled care facility until Monday. VTE prophylaxis: SCD. No anticoagulation secondary to upper GI bleed Length of stay greater than 96 hours because of GI bleed and placement into skilled care nursing facility
[2019-02-03] MEDS: Verapamil 120 MG Cap.ER PO SCH (17:25)
[2019-02-03] MEDS: Famotidine 20 MG Tab PO SCH (21:27)
[2019-02-03] MEDS: Latanoprost 0.005% Ophth Soln 2.5 ML Bottle EYEBOTH SCH (21:27)
[2019-02-03] MEDS: Losartan 100 MG Tab PO SCH (21:27)
[2019-02-03] MEDS: Melatonin 3 MG Tab PO PRN (21:28)
[2019-02-04] MEDS: Acetaminophen/HYDROcodone 325-5 MG Tab PO PRN ×3 (06:31→20:06)
[2019-02-04] MEDS: Ferrous Sulfate 325 MG Tab PO SCH ×3 (06:32→17:29)
[2019-02-04] MEDS: Levothyroxine 75 MCG Tab PO SCH (06:32)
[2019-02-04] MEDS: Ascorbic Acid 500 MG Tab PO SCH ×3 (06:33→17:29)
[2019-02-04] MEDS: Docusate Sodium 100 MG Cap PO SCH (08:40)
[2019-02-04] MEDS: Polyethylene Glycol 3350 Powder 17 GM Packet PO SCH (08:40)
[2019-02-04] MEDS: Cholecalciferol (Vitamin D3) 5,000 UNIT Tab PO SCH (08:40)
[2019-02-04] MEDS: Pantoprazole 40 MG Vial IVPUSH SCH ×2 (08:40→20:06)
[2019-02-04] MEDS: Rosuvastatin 10 MG Tab PO SCH (08:40)
[2019-02-04] MEDS: Sertraline 50 MG Tab PO SCH (08:40)
--- NOTE | 2019-02-04 14:39 | PCM.PN ---
- General Info Date of Service: 02/04/19 Subjective Update: Hemodynamically stable, reviewed results of imaging and consultant technology recommendations, will monitor H/H 24-48 hours; see ortho/gen surg recommendations. Will not pursue surgical option. UGI needs time to heal, monitor S/S of GI bleed. Functional Status: Reports: Tolerating Diet, Urinating - Review of Systems General: Reports: Weakness HEENT: Reports: No Symptoms Pulmonary: Reports: No Symptoms Cardiovascular: Reports: No Symptoms Gastrointestinal: Reports: No Symptoms Genitourinary: Reports: No Symptoms Musculoskeletal: Reports: No Symptoms Skin: Reports: No Symptoms Neurological: Reports: No Symptoms Psychiatric: Reports: No Symptoms - Patient Data Vitals - Most Recent: Last Vital Signs Temp 36.7 C 02/04/19 12:19 Pulse 64 02/04/19 12:19 Resp 16 02/04/19 12:19 BP 122/83 02/04/19 12:19 Pulse Ox 98 02/04/19 12:19 Weight - Most Recent: 67.188 kg I&O - Last 24 Hours: Intake & Output 02/03/19 02/04/19 02/04/19 22:59 06:59 14:59 Intake Total 450 300 Output Total 500 1450 Balance -50 -1150 Lab Results Last 24 Hours: Laboratory Results - last 24 hr 02/04/19 02/04/19 Range/Units 05:44 05:44 Hgb 10.8 L (11.2-15.7) gm/L Hct 33.4 L (34.1-44.9) % Sodium 136 (136-145) mEq/L Potassium 4.4 (3.5-5.1) mEq/L Chloride 104 (98-107) mEq/L Carbon Dioxide 27 (21-32) mEq/L Anion Gap 9.4 (5-15) BUN 15 (7-18) mg/dL Creatinine 1.0 (0.55-1.02) mg/dL Est Cr Clr Drug Dosing 28.78 mL/min Estimated GFR (MDRD) 52 (>60) mL/min BUN/Creatinine Ratio 15.0 (14-18) Glucose 94 (83-115) mg/dL Calcium 9.8 (8.5-10.1) mg/dL Magnesium 1.9 (1.8-2.4) mg/dl Jason Results Last 24 Hours: Microbiology 01/28/19 08:44 Aerobic Blood Culture - Final Blood - Venous NO GROWTH AFTER 7 DAYS Anaerobic Blood Culture - Final NO GROWTH AFTER 7 DAYS 01/28/19 09:00 Aerobic Blood Culture - Final Blood - Venous - Lab Draw NO GROWTH AFTER 7 DAYS Anaerobic Blood Culture - Final NO GROWTH AFTER 7 DAYS Med Orders - Current: Current Medications Hydrocodone Bitart/Acetaminophen ([place] 325-5 Mg) 1 tab PO Q4H PRN PRN Reason: Pain Last Admin: 02/04/19 06:31 Dose: 1 tab Artificial Tears (Refresh Liquigel 1%) 0 ml EYEBOTH DAILY PRN PRN Reason: DRY EYES Ascorbic Acid (Vitamin C) 250 mg PO TIDMEALS [facility] Last Admin: 02/04/19 11:17 Dose: 250 mg Cholecalciferol (Vitamin D3) 5,000 unit PO DAILY [facility] Last Admin: 02/04/19 08:40 Dose: 5,000 unit Cyclobenzaprine HCl (Flexeril) 10 mg PO TID PRN PRN Reason: Muscle Spasm Last Admin: 01/31/19 04:13 Dose: 10 mg Docusate Sodium (Colace) 100 mg PO DAILY [facility] Last Admin: 02/04/19 08:40 Dose: 100 mg Famotidine (Pepcid) 20 mg PO BEDTIME [facility] Last Admin: 02/03/19 21:27 Dose: 20 mg Ferrous Sulfate (Ferrous Sulfate) 325 mg PO TIDMEALS [facility] Last Admin: 02/04/19 11:17 Dose: 325 mg Latanoprost (Xalatan 0.005% Ophth Soln) 0 ml EYEBOTH BEDTIME [facility] Last Admin: 02/03/19 21:27 Dose: 1 drop Levothyroxine Sodium (Levothyroxine) 75 mcg PO DAILY@0600 [facility] Last Admin: 02/04/19 06:32 Dose: 75 mcg Losartan Potassium (Cozaar) 100 mg PO BEDTIME [facility] Last Admin: 02/03/19 21:27 Dose: 100 mg Meclizine HCl (Antivert) 12.5 mg PO BID PRN PRN Reason: Dizziness Last Admin: 01/29/19 14:45 Dose: 12.5 mg Melatonin (Melatonin) 3 mg PO BEDTIME PRN PRN Reason: Insomnia Last Admin: 02/03/19 21:28 Dose: 3 mg Ondansetron HCl (Zofran) 4 mg IVPUSH Q4H PRN PRN Reason: Nausea/Vomiting Pantoprazole Sodium (Protonix Iv) 40 mg IVPUSH Q12H [facility] Last Admin: 02/04/19 08:40 Dose: 40 mg Polyethylene Glycol (Miralax) 17 gm PO DAILY [facility] Last Admin: 02/04/19 08:40 Dose: 17 gm Rosuvastatin Calcium (Crestor) 5 mg PO DAILY [facility] Last Admin: 02/04/19 08:40 Dose: 5 mg Sertraline HCl (Zoloft) 50 mg PO DAILY [facility] Last Admin: 02/04/19 08:40 Dose: 50 mg Sodium Chloride (Saline Flush) 10 ml FLUSH ASDIRECTED PRN PRN Reason: Keep Vein Open Last Admin: 01/28/19 09:13 Dose: 10 ml Verapamil HCl (Verelan) 240 mg PO QPM [facility] Last Admin: 02/03/19 17:25 Dose: 240 mg Discontinued Medications Hydrocodone Bitart/Acetaminophen ([place] 325-5 Mg) 1 tab PO Q4H PRN PRN Reason: Pain Last Admin: 01/28/19 14:01 Dose: 1 tab Hydrocodone Bitart/Acetaminophen ([place] 325-5 Mg) 1 - 2 tab PO Q4H PRN PRN Reason: Pain Last Admin: 01/28/19 23:41 Dose: 2 tab Bisacodyl (Dulcolax) 10 mg RECTAL ONETIME ONE Stop: 02/01/19 11:08 Last Admin: 02/01/19 11:49 Dose: 10 mg Diphenhydramine HCl (Benadryl) 25 mg IVPUSH ONETIME ONE Stop: 01/30/19 09:01 Last Admin: 01/30/19 08:46 Dose: 25 mg Hydralazine HCl (Apresoline) 10 mg PO Q12H [facility] Last Admin: 01/31/19 12:27 Dose: Not Given Sodium Chloride (Normal Saline) 1,000 mls @ 125 mls/hr IV ASDIRECTED [facility] Last Admin: 01/28/19 09:13 Dose: 125 mls/hr Sodium Chloride (Normal Saline) 500 mls @ 50 mls/hr IV ASDIRECTED [facility] Stop: 01/29/19 14:00 Sodium Chloride (Normal Saline) 250 mls @ 50 mls/hr IV ASDIRECTED [facility] Last Admin: 01/30/19 12:39 Dose: 50 mls/hr Sodium Chloride (Normal Saline) 250 mls @ 150 mls/hr IV ASDIRECTED [facility] Last Admin: 02/02/19 12:05 Dose: 150 mls/hr Magnesium Sulfate 4 gm/ Premix 50 mls @ 12.5 mls/hr IV ONETIME ONE Stop: 02/03/19 13:29 Last Admin: 02/03/19 09:45 Dose: 12.5 mls/hr Ketorolac Tromethamine (Toradol) 15 mg IVPUSH ONETIME ONE Stop: 01/28/19 11:33 Last Admin: 01/28/19 11:36 Dose: 15 mg Latanoprost (Xalatan 0.005% Ophth Soln) 0 ml EYEBOTH BEDTIME [facility] Latanoprost (Xalatan 0.005% Ophth Soln) 0 ml EYEBOTH DAILY [facility] Last Admin: 02/01/19 08:52 Dose: Not Given Levothyroxine Sodium (Levothyroxine) 75 mcg PO QAM [facility] Last Admin: 02/02/19 07:01 Dose: 75 mcg Oxycodone HCl (Oxycodone) 5 - 10 mg PO Q4H PRN PRN Reason: Pain Last Admin: 02/01/19 15:40 Dose: 5 mg Pantoprazole Sodium (Protonix Iv) 40 mg IVPUSH Q12H [facility] Last Admin: 02/01/19 08:40 Dose: 40 mg Pantoprazole Sodium (Protonix) 40 mg PO Q12H [facility] Last Admin: 02/02/19 09:46 Dose: 40 mg Propofol (Diprivan 20 Ml) Confirm Administered Dose 200 mg .ROUTE .STK-MED ONE Stop: 01/30/19 13:45 Spironolactone (Aldactone) 50 mg PO DAILY [facility] Last Admin: 01/30/19 08:35 Dose: 50 mg - Exam Quality Assessment: DVT Prophylaxis General: Alert, Oriented, Cooperative, No Acute Distress HEENT: Pupils Equal, Pupils Reactive, EOMI Neck: Trachea Midline, No JVD Lungs: Normal Respiratory Effort Cardiovascular: Regular Rate GI/Abdominal Exam: Normal Bowel Sounds, Soft, Non-Tender, No Organomegaly, No Distention (Female) Exam: Deferred Back Exam: Full Range of Motion Extremities: Normal Inspection, Non-Tender, Normal Capillary Refill Skin: Warm Neurological: No New Focal Deficit Psy/Mental Status: Alert - Problem List Review Problem List Initiated/Reviewed/Updated: Yes - Plan Plan:: Right bimalleolar fracture * Dr. Tucker consulted * Patient will need placement in nursing home facility * No surgery and tell peptic ulcer is completely resolved. Blood loss anemia Anemia * Large gastric ulcer on endoscopy.GI bleed * Hemoglobin dropped to 7.4 and was given 2 units packed red blood cells. * Hemoglobin stable today at 10.1 and will recheck in the morning Gastric ulcer * Continue Protonix 40 mg IV twice day, start oral * Stool for H. pylori and IgG levels for H. pylori are negative. Hypertension * Hold hydralazine 10 mg twice a day , spironolactone 50 mg daily, and losartan 100 mg daily because of low blood pressure, * verapamil SR 240 mg daily. Fall * Patient states that she felt weak. She apparently has had several falls. She will benefit from nursing home facility and rehabilitation in the long-term. * Patient has a history of dizziness, but she does not think that was the cause of her fall this morning. Dizziness/history of orthostatic hypotension * Continue meclizine when necessary. * Follow hemoglobin overnight. Discharge planning: Patient will be held overnight to evaluate hemoglobin the morning. I've been informed that she will not be able to go to her skilled care facility until Monday. VTE prophylaxis: SCD. No anticoagulation secondary to upper GI bleed Length of stay greater than 96 hours because of GI bleed and placement into skilled care nursing facility; [facility] -->TBD
[2019-02-04] MEDS: Verapamil 120 MG Cap.ER PO SCH (17:28)
[2019-02-04] MEDS: Melatonin 3 MG Tab PO PRN (20:06)
[2019-02-04] MEDS: Losartan 100 MG Tab PO SCH (20:07)
[2019-02-04] MEDS: Famotidine 20 MG Tab PO SCH (20:07)
[2019-02-04] MEDS: Latanoprost 0.005% Ophth Soln 2.5 ML Bottle EYEBOTH SCH (20:07)
[2019-02-05] MEDS: Levothyroxine 75 MCG Tab PO SCH (05:44)
[2019-02-05] MEDS: Acetaminophen/HYDROcodone 325-5 MG Tab PO PRN ×3 (05:44→23:41)
[2019-02-05] MEDS: Ascorbic Acid 500 MG Tab PO SCH ×4 (05:45→17:19)
[2019-02-05] MEDS: Ferrous Sulfate 325 MG Tab PO SCH ×4 (05:48→17:19)
[2019-02-05] MEDS ORDERED: Magnesium Sulfate/Water 2 GM in Premix Bag 1 BAG IV ONE (08:55)
[2019-02-05] MEDS: Pantoprazole 40 MG Vial IVPUSH SCH (09:19)
[2019-02-05] MEDS: Rosuvastatin 10 MG Tab PO SCH (09:20)
[2019-02-05] MEDS: Docusate Sodium 100 MG Cap PO SCH (09:21)
[2019-02-05] MEDS: Cholecalciferol (Vitamin D3) 5,000 UNIT Tab PO SCH (09:21)
[2019-02-05] MEDS: Sertraline 50 MG Tab PO SCH (09:21)
[2019-02-05] MEDS: Polyethylene Glycol 3350 Powder 17 GM Packet PO SCH (09:21)
--- NOTE | 2019-02-05 09:51 | PCM.PN ---
- General Info Date of Service: 02/05/19 Admission Dx/Problem (Free Text): Admission Diagnosis/Problem Admission Diagnosis/Problem Fall Subjective Update: Follow Up Functional Status: Reports: Pain Controlled, Tolerating Diet, Ambulating, Urinating. Denies: New Symptoms - Review of Systems General: Denies: Fever, Weakness, Fatigue, Malaise, Chills HEENT: Reports: No Symptoms Pulmonary: Denies: Shortness of Breath, Sputum Cardiovascular: Denies: Chest Pain, Palpitations, Dyspnea on Exertion, Orthopnea , Lightheadedness Gastrointestinal: Denies: Abdominal Pain, Decreased Appetite, Diarrhea, Hematochezia, Melena, Nausea, Vomiting Genitourinary: Reports: No Symptoms Musculoskeletal: Reports: No Symptoms Skin: Denies: Cyanosis, Mottled, Pallor, Diaphoresis, Bruising Neurological: Denies: Confusion, Difficulty Walking, Weakness, Gait Disturbance Psychiatric: Denies: Depression, Anxiety, Agitation, Hallucinations Systems Review Comment:: No significant overnight or acute issues. She is doing relatively well. No reports of GI bleed and her Hgb level is stable at 10.8. Her chemistry is unremarkable. She has no complaints this AM. - Patient Data Vitals - Most Recent: Last Vital Signs Temp 37.0 C 02/05/19 05:40 Pulse 64 02/05/19 09:26 Resp 16 02/05/19 09:26 BP 130/67 02/05/19 09:26 Pulse Ox 96 02/05/19 09:26 Weight - Most Recent: 68.81 kg I&O - Last 24 Hours: Intake & Output 02/04/19 02/05/19 02/05/19 22:59 06:59 14:59 Intake Total 840 250 Output Total 400 550 Balance 440 -300 Jason Results Last 24 Hours: Microbiology 01/28/19 08:44 Aerobic Blood Culture - Final Blood - Venous NO GROWTH AFTER 7 DAYS Anaerobic Blood Culture - Final NO GROWTH AFTER 7 DAYS 01/28/19 09:00 Aerobic Blood Culture - Final Blood - Venous - Lab Draw NO GROWTH AFTER 7 DAYS Anaerobic Blood Culture - Final NO GROWTH AFTER 7 DAYS Med Orders - Current: Current Medications Hydrocodone Bitart/Acetaminophen ([place] 325-5 Mg) 1 tab PO Q4H PRN PRN Reason: Pain Last Admin: 02/05/19 05:44 Dose: 1 tab Artificial Tears (Refresh Liquigel 1%) 0 ml EYEBOTH DAILY PRN PRN Reason: DRY EYES Ascorbic Acid (Vitamin C) 250 mg PO TIDMEALS [facility] Last Admin: 02/05/19 06:08 Dose: Not Given Cholecalciferol (Vitamin D3) 5,000 unit PO DAILY [facility] Last Admin: 02/05/19 09:21 Dose: 5,000 unit Cyclobenzaprine HCl (Flexeril) 10 mg PO TID PRN PRN Reason: Muscle Spasm Last Admin: 01/31/19 04:13 Dose: 10 mg Docusate Sodium (Colace) 100 mg PO DAILY [facility] Last Admin: 02/05/19 09:21 Dose: 100 mg Famotidine (Pepcid) 20 mg PO BEDTIME [facility] Last Admin: 02/04/19 20:07 Dose: 20 mg Ferrous Sulfate (Ferrous Sulfate) 325 mg PO TIDMEALS [facility] Last Admin: 02/05/19 06:07 Dose: Not Given Magnesium Sulfate 2 gm/ Premix 50 mls @ 25 mls/hr IV ONETIME ONE Stop: 02/05/19 10:54 Last Admin: 02/05/19 09:21 Dose: 25 mls/hr Latanoprost (Xalatan 0.005% Oph Soln) 0 ml EYEBOTH BEDTIME [facility] Last Admin: 02/04/19 20:07 Dose: 1 drop Levothyroxine Sodium (Levothyroxine) 75 mcg PO DAILY@0600 [facility] Last Admin: 02/05/19 05:44 Dose: 75 mcg Losartan Potassium (Cozaar) 100 mg PO BEDTIME [facility] Last Admin: 02/04/19 20:07 Dose: 100 mg Meclizine HCl (Antivert) 12.5 mg PO BID PRN PRN Reason: Dizziness Last Admin: 01/29/19 14:45 Dose: 12.5 mg Melatonin (Melatonin) 3 mg PO BEDTIME PRN PRN Reason: Insomnia Last Admin: 02/04/19 20:06 Dose: 3 mg Ondansetron HCl (Zofran) 4 mg IVPUSH Q4H PRN PRN Reason: Nausea/Vomiting Pantoprazole Sodium (Protonix Iv) 40 mg IVPUSH Q12H [facility] Last Admin: 02/05/19 09:19 Dose: 40 mg Polyethylene Glycol (Miralax) 17 gm PO DAILY [facility] Last Admin: 02/05/19 09:21 Dose: Not Given Rosuvastatin Calcium (Crestor) 5 mg PO DAILY [facility] Last Admin: 02/05/19 09:20 Dose: 5 mg Sertraline HCl (Zoloft) 50 mg PO DAILY [facility] Last Admin: 02/05/19 09:21 Dose: 50 mg Sodium Chloride (Saline Flush) 10 ml FLUSH ASDIRECTED PRN PRN Reason: Keep Vein Open Last Admin: 01/28/19 09:13 Dose: 10 ml Verapamil HCl (Verelan) 240 mg PO QPM [facility] Last Admin: 02/04/19 17:28 Dose: 240 mg Discontinued Medications Hydrocodone Bitart/Acetaminophen ([place] 325-5 Mg) 1 tab PO Q4H PRN PRN Reason: Pain Last Admin: 01/28/19 14:01 Dose: 1 tab Hydrocodone Bitart/Acetaminophen ([place] 325-5 Mg) 1 - 2 tab PO Q4H PRN PRN Reason: Pain Last Admin: 01/28/19 23:41 Dose: 2 tab Bisacodyl (Dulcolax) 10 mg RECTAL ONETIME ONE Stop: 02/01/19 11:08 Last Admin: 02/01/19 11:49 Dose: 10 mg Diphenhydramine HCl (Benadryl) 25 mg IVPUSH ONETIME ONE Stop: 01/30/19 09:01 Last Admin: 01/30/19 08:46 Dose: 25 mg Hydralazine HCl (Apresoline) 10 mg PO Q12H [facility] Last Admin: 01/31/19 12:27 Dose: Not Given Sodium Chloride (Normal Saline) 1,000 mls @ 125 mls/hr IV ASDIRECTED [facility] Last Admin: 01/28/19 09:13 Dose: 125 mls/hr Sodium Chloride (Normal Saline) 500 mls @ 50 mls/hr IV ASDIRECTED [facility] Stop: 01/29/19 14:00 Sodium Chloride (Normal Saline) 250 mls @ 50 mls/hr IV ASDIRECTED [facility] Last Admin: 01/30/19 12:39 Dose: 50 mls/hr Sodium Chloride (Normal Saline) 250 mls @ 150 mls/hr IV ASDIRECTED [facility] Last Admin: 02/02/19 12:05 Dose: 150 mls/hr Magnesium Sulfate 4 gm/ Premix 50 mls @ 12.5 mls/hr IV ONETIME ONE Stop: 02/03/19 13:29 Last Admin: 02/03/19 09:45 Dose: 12.5 mls/hr Ketorolac Tromethamine (Toradol) 15 mg IVPUSH ONETIME ONE Stop: 01/28/19 11:33 Last Admin: 01/28/19 11:36 Dose: 15 mg Latanoprost (Xalatan 0.005% Ophth Soln) 0 ml EYEBOTH BEDTIME [facility] Latanoprost (Xalatan 0.005% Ophth Soln) 0 ml EYEBOTH DAILY [facility] Last Admin: 02/01/19 08:52 Dose: Not Given Levothyroxine Sodium (Levothyroxine) 75 mcg PO QAM [facility] Last Admin: 02/02/19 07:01 Dose: 75 mcg Oxycodone HCl (Oxycodone) 5 - 10 mg PO Q4H PRN PRN Reason: Pain Last Admin: 02/01/19 15:40 Dose: 5 mg Pantoprazole Sodium (Protonix Iv) 40 mg IVPUSH Q12H [facility] Last Admin: 02/01/19 08:40 Dose: 40 mg Pantoprazole Sodium (Protonix) 40 mg PO Q12H [facility] Last Admin: 02/02/19 09:46 Dose: 40 mg Propofol (Diprivan 20 Ml) Confirm Administered Dose 200 mg .ROUTE .STK-MED ONE Stop: 01/30/19 13:45 Spironolactone (Aldactone) 50 mg PO DAILY [facility] Last Admin: 01/30/19 08:35 Dose: 50 mg - Exam General: Alert, Oriented, Cooperative, No Acute Distress HEENT: Pupils Equal, Pupils Reactive, EOMI, Mucous Membr. Moist/[place] Neck: Supple Lungs: Clear to Auscultation, Normal Respiratory Effort Cardiovascular: Regular Rate, Regular Rhythm GI/Abdominal Exam: Normal Bowel Sounds, Soft, Non-Tender, No Organomegaly, No Distention, No Abnormal Bruit, No Mass (Female) Exam: Deferred Back Exam: Normal Inspection, Decreased Range of Motion Extremities: Normal Range of Motion (left lower extremity), Non-Tender (left lower extremity), No Pedal Edema (left lower extremity), Normal Capillary Refill , Leg Pain (right lower extremity ), Limited Range of Motion (right lower extremity), Other (right lower extremity with splint). No: Normal Inspection Peripheral Pulses: 2+: Dorsalis Pedis (L), Dorsalis Pedis (R) Skin: Dry, Intact Wound/Incisions: Healing Well Neurological: No New Focal Deficit (limited due to immobilized right lower extremity; sensation and distal toes motor skills are intact), Cranial Nerves Intact. No: Normal Gait Psy/Mental Status: Alert, Normal Affect, Normal Mood - Problem List Review Problem List Initiated/Reviewed/Updated: Yes - Plan Plan:: Assessment/Plan: Right bimalleolar fracture * Dr. 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 * Hemoglobin stable today at 10.1 and will recheck in the morning * Continue oral iron supplement Shahbaz's Ulcer * Has large hiatal Hernia * Treatment is usually PPI or H2B * S/p Endoscopy * Treated with PPI and now we will start H2B BID; she will likely be discharge with PP * Stool for H. pylori and IgG levels for H. pylori are negative. Urinary Retention * Acute on Chronic * Has hx/o Bladder Prolapse; was not not good surgical candidate due to advanced age * Continue urinary catheter * Recommend to see gyneco-urologist for further intervention Resolved: S/p Hypertension, Improved * Hold hydralazine 10 mg twice a day , spironolactone 50 mg daily, and losartan 100 mg daily because of low blood pressure, * verapamil SR 240 mg daily. Inactive: Fall * Patient states that she felt weak. She apparently has had several falls. She will benefit from senior living facility and rehabilitation in the long-term. * Patient has a history of dizziness, but she does not think that was the cause of her fall this morning. Dizziness/history of orthostatic hypotension * Continue meclizine when necessary. * Follow hemoglobin overnight. Plan: She is clinically and hemodynamically stable Continue current treatment Routine AM Labs PT/OT to assess and treat VTE prophylaxis: SCD. No anticoagulation secondary to upper GI bleed SW/CM for d/c planning Additional orders as above Length of stay greater than 96 hours pending placement in AM
[2019-02-05] MEDS: Verapamil 120 MG Cap.ER PO SCH (17:19)
[2019-02-05] MEDS: Losartan 100 MG Tab PO SCH (21:36)
[2019-02-05] MEDS: Famotidine 20 MG Tab PO SCH (21:37)
[2019-02-05] MEDS: Latanoprost 0.005% Ophth Soln 2.5 ML Bottle EYEBOTH SCH (21:37)
[2019-02-06] MEDS: Ferrous Sulfate 325 MG Tab PO SCH ×2 (06:37→10:07)
[2019-02-06] MEDS: Levothyroxine 75 MCG Tab PO SCH (06:37)
[2019-02-06] MEDS: Ascorbic Acid 500 MG Tab PO SCH ×2 (06:37→10:07)
--- NOTE | 2019-02-06 06:53 | PCM.DCSUM1 ---
Discharge Summary - Hospital Course HPI Initial Comments: This 88-year-old female presented to the emergency room via [facility]. Patient is a resident of the [facility]. This morning she got up from bed and went to the bathroom. She states that when she got up she steps slowly because she was concerned about falling. She became progressively weak and fell because her feet when it moved correctly. She had right ankle pain and at the emergency room was found to have a bimalleolar fracture of her right ankle. He was splinted with fiberglass in a posterior short leg splint. She was seen by Dr. Tucker in the emergency room. He felt there was too much swelling at this time and she would undergo surgery in 1 week. Patient was admitted to the hospital because she is unable to return to her home. She requires more care. She is confused about the past few days. Her on January 20, 2019 and tomorrow is his . Patient also states that she has a long history of anemia. It has been going on for several months if not longer. Hemoglobin in January 2018 was 10.6. Patient has also been suffering from intermittent dizziness. She's been on meclizine. She states that this morning she did not have any dizziness prior to falling. In the emergency room she was found to be slightly dehydrated and fluids were started. Diagnosis: Stroke: No - Discharge Data Discharge Date: 02/06/19 (Admit date: 01/28/19) Discharge Disposition: DC/Tfer to SNF 03 Condition: Stable - Discharge Diagnosis/Problem(s) (1) Shahbaz ulcer SNOMED Code(s): 890018586 ICD Code: K25.9 - GASTRIC ULCER, UNSP ACUTE OR CHRONIC, W/O HEMOR OR PERF Status: Acute Priority: High Current Visit: Yes Qualifiers: Gastric ulcer chronicity: acute Qualified Code(s): K25.3 - Acute gastric ulcer without hemorrhage or perforation (2) Bimalleolar fracture of right ankle SNOMED Code(s): 895855698 ICD Code: S82.841A - DISPLACED BIMALLEOLAR FRACTURE OF RIGHT LOWER LEG, INIT Status: Acute Priority: High Current Visit: Yes Qualifiers: Encounter type: initial encounter Fracture type: closed Qualified Code(s) : S82.841A - Displaced bimalleolar fracture of right lower leg, initial encounter for closed fracture (3) Blood loss anemia SNOMED Code(s): 053513258 ICD Code: D50.0 - IRON DEFICIENCY ANEMIA SECONDARY TO BLOOD LOSS (CHRONIC) Status: Acute Priority: High Current Visit: Yes (4) Fall SNOMED Code(s): 0510515, 902164580 ICD Code: W19.XXXA - UNSPECIFIED FALL, INITIAL ENCOUNTER Status: Acute Priority: High Current Visit: Yes Qualifiers: Encounter type: initial encounter Qualified Code(s): W19.XXXA - Unspecified fall, initial encounter - Patient Summary/Data Consults: Consultations 01/29/19 10:31 Consult to Physician [CONS] Routine 01/29/19 11:22 Consult to Occupational Therapy [OT Evaluation and Treatment] [CONS] Routine Consult to Physical Therapy [PT Evaluation and Treatment] [CONS] Routine 01/30/19 11:29 Consult to Physician [CONS] Routine Labs Pending at D/C: None Recommended Follow-up Testing/Procedures: Follow-up with PCP within 1 week of discharge. Follow-up with urology as directed. Hospital Course: Assessment/Plan: Right bimalleolar fracture * Dr. Tucker consulted * Patient will need placement in [facility] facility * No surgery until peptic ulcer is completely resolved; 4-6 weeks Blood loss Anemia * Acute on Chronic * Large gastric ulcer on endoscopy 2/2 Shahbaz's Ulcer * Hemoglobin dropped to 7.4 and was given 2 units packed red blood cells. * Hemoglobin stable today at 10.1 and will recheck in the morning * Continue oral iron supplement Shahbaz's Ulcer * Has large hiatal Hernia * Treatment is usually PPI or H2B * S/p Endoscopy * Treated with PPI and now we will start H2B BID; she will likely be discharge with PP * Stool for H. pylori and IgG levels for H. pylori are negative. Urinary Retention * Acute on Chronic * Has hx/o Bladder Prolapse; was not not good surgical candidate due to advanced age * Continue urinary catheter * Recommend to see gyneco-urologist for further intervention Resolved: S/p Hypertension, Improved * Hold hydralazine 10 mg twice a day , spironolactone 50 mg daily, and losartan 100 mg daily because of low blood pressure, * verapamil SR 240 mg daily. Inactive: Fall * Patient states that she felt weak. She apparently has had several falls. She will benefit from [facility] facility and rehabilitation in the long-term. * Patient has a history of dizziness, but she does not think that was the cause of her fall this morning. Dizziness/history of orthostatic hypotension * Continue meclizine when necessary. * Follow hemoglobin overnight. Plan: She is clinically and hemodynamically stable Continue current treatment Routine AM Labs PT/OT to assess and treat VTE prophylaxis: SCD. No anticoagulation secondary to upper GI bleed / for d/c planning Additional orders as above Length of stay greater than 96 hours pending placement in AM Maira was admitted to the floor after a fall resulting in a bimalleolar fracture and anemia. Dr. Ashraf, orthopedics was consult and did note the patient will need surgery on a nonemergent basis. Chest x-ray and head CT were obtained in the ED showing nothing acute. Ankle x-ray did confirm mildly displaced bimalleolar fracture of the right leg. Hip x-ray was negative as well. Patient was noted to be anemic and her hemoglobin continued to trend down. She is also noted to have bloody bowel movements. General surgery was consulted and Dr. Morales performed EGD. She was noted to have a very large hiatal hernia with a blood clot contained within it (Shahbaz's Ulcer). There were no lesions or ulcers noted within the greater stomach. Clot was never dislodged throughout the procedure. Ultimately Dr. Morales recommended avoiding NSAIDs and supportive care. He reports that it will likely be at least 6 weeks until this heals as she will continue to have issues if she goes on blood thinners for surgery. H. Pylori was negative. PPI was continued. Initially one unit of blood was attempted and there were concerns over a transfusion reaction. This was found to be more IV site irritation and she did undergo successful transfusion on the next day. 5 units were ultimately transfused. She was also started on 3 times a day ferrous sulfate supplementation and vitamin C supplementation. Ultimately her GI bleed did resolve and her hemoglobin continue to trend upward. She'll be discharged today on when necessary [place] for pain, ferrous sulfate and vitamin C as mentioned prior, 100 mg by mouth daily Colace, and 12.5 mg by mouth twice a day when necessary meclizine for dizziness. It is recommended she remain nonweightbearing on her right leg. She has been working with PT and OT. She should follow-up with GI in 6 weeks for repeat EGD or sooner if bleeding resumes. While here she was also noted to have significant urinary retention. A Pack catheter was placed after multiple straight cathetering attempts. She does have a history of bladder prolapse and is recommended she see a gynecology urologist for this as this may be the cause of her urinary retention. She is instructed to follow-up with her primary care provider within one week of discharge. She should continue PT/OT at [facility]. Parameters were placed on her blood pressure medications and she was instructed to check her blood pressure 3 times a day holding medications per the parameters if needed. She is also instructed to record her blood pressures and bring these with all medical appointments. She will be discharged today she should follow-up with her primary care provider within one week. - Patient Instructions Diet: Mechanical Soft Activity: Non Weight Bearing (right side) Driving: Do Not Drive Notify Provider of: Fever, Increased Pain, Swelling and Redness, Nausea and/or Vomiting Other/Special Instructions: - Please take all new medications as directed. - Resume all home medications and continue routine home activities as tolerated. - Check vitals (heart rate and blood pressure) and follow parameters before taking your BP medications. At least check blood pressure 3x/day and show log on follow up appointment with PCP (Primary Care Provider). - Follow-up with primary care provider within 7-10 days of discharge. - Follow-up with urology as scheduled. She may benefit from gyneco-urology as well. - Call or follow up with your PCP for any questions or concerns after discharge. - Follow up with your PCP in 1 week with repat CBC. - Come back or seek immediate care should your symptoms persist or get worse. - Continue PT/OT at [facility]. - Should symptoms return or worsen, contact primary care provider or return the the emergency room. - Discharge Plan *PRESCRIPTION DRUG MONITORING PROGRAM REVIEWED*: No *COPY OF PRESCRIPTION DRUG MONITORING REPORT IN PATIENT LU: No Prescriptions/Med Rec: Acetaminophen/HYDROcodone [[place] 325-5 MG] 1 tab PO Q8H #12 tablet Ascorbic Acid [Vitamin C] 250 mg PO TIDMEALS #90 tablet Docusate Sodium [Colace] 100 mg PO DAILY #30 cap Ferrous Sulfate 325 mg PO TIDMEALS #90 tablet Meclizine [Antivert] 12.5 mg PO BID PRN #30 tablet PRN Reason: Dizziness Home Medications: Home Meds Verapamil HCl [Verapamil ER] 240 mg PO DAILY 06/13/14 [History] Multivitamin [One Daily] 1 tab PO DAILY 01/29/18 [History] Spironolactone 50 mg PO DAILY 01/29/18 [History] Acetaminophen [Tylenol] 500 mg PO DAILY PRN #30 02/06/19 [Rx] Acetaminophen/HYDROcodone [[place] 325-5 MG] 1 tab PO Q8H #12 tablet 02/06/19 [Rx] Ascorbic Acid [Vitamin C] 250 mg PO TIDMEALS #90 tablet 02/06/19 [Rx] Carboxymethylcellulose Sodium [Refresh Tears] 1 drop EYEBOTH DAILY PRN #1 [Rx] Cholecalciferol (Vitamin D3) [Vitamin D3] 5,000 units PO Q48H #1 02/06/19 [Rx] Docusate Sodium [Colace] 100 mg PO DAILY #30 cap 02/06/19 [Rx] Ferrous Sulfate 325 mg PO TIDMEALS #90 tablet 02/06/19 [Rx] Latanoprost [Xalatan 0.005% Ophth Soln] 1 drop EYEBOTH DAILY #1 02/06/19 [Rx] Levothyroxine 75 mcg PO QAM #30 02/06/19 [Rx] Loratadine 10 mg PO DAILY #0 02/06/19 [Rx] Losartan Potassium 100 mg PO BEDTIME #30 02/06/19 [Rx] Meclizine [Antivert] 12.5 mg PO BID PRN #30 tablet 02/06/19 [Rx] Multivit-Min/FA/Lycopene/Lut [Certavite Sr-Antioxidant Tab] 1 tab PO BID #30 [Rx] Omeprazole 20 mg PO ACBREAKFAST #0 02/06/19 [Rx] Polyethylene Glycol 3350 [MiraLAX] 17 gram PO Q72H #5 02/06/19 [Rx] Ranitidine [Zantac] 150 mcg PO BID PRN #30 02/06/19 [Rx] Rosuvastatin [Crestor] 5 mg PO DAILY #30 02/06/19 [Rx] Sertraline HCl [Zoloft] 50 mg PO DAILY #30 02/06/19 [Rx] Tetrahydrozoline HCl [Eye Drops] 1 drop EYEBOTH BEDTIME #1 02/06/19 [Rx] hydrALAZINE [Apresoline] 10 mg PO Q12HR #0 02/06/19 [Rx] Oxygen Therapy Mode: Room Air Patient Handouts: Peptic Ulcer, Anemia, Ankle Fracture, [id number], Urodynamic Testing, [id number], Acute Urinary Retention, Female, [id number] , Hypertension Referrals: Ana Granado MD [Physician] - 02/11/19 8:30 am (Please follow up with Dr. Granado on February 11 at 0830. ) Luis A Bustamante MD [Physician] - 02/13/19 11:00 am (Family requested to be present with patient for appointment. Check in at 11am for paper work. ) Luis A Tomlin MD [Ordering Only Provider] - (Please wait for them to contact family daughter regarding appointment scheduling. ) - Discharge Summary/Plan Comment DC Time >30 min.: Yes (45 minutes ) - General Info Date of Service: 02/06/19 Admission Dx/Problem (Free Text: Admission Diagnosis/Problem Admission Diagnosis/Problem Fall Functional Status: Reports: Pain Controlled, Tolerating Diet, Ambulating, Urinating (Pack in place ), Incentive Spirometry. Denies: New Symptoms - Review of Systems General: Reports: Weakness (improving ). Denies: Fever, Fatigue, Malaise, Chills HEENT: Reports: No Symptoms. Denies: Headaches, Sore Throat Pulmonary: Reports: No Symptoms. Denies: Shortness of Breath, Pleuritic Chest Pain, Cough, Sputum, Wheezing Cardiovascular: Reports: No Symptoms. Denies: Chest Pain, Palpitations, Dyspnea on Exertion, Edema Gastrointestinal: Reports: No Symptoms. Denies: Abdominal Pain, Constipation, Diarrhea, Nausea, Vomiting Genitourinary: Reports: Retention. Denies: Pain Musculoskeletal: Reports: Leg Pain (Right leg ) Skin: Reports: No Symptoms. Denies: Cyanosis Neurological: Reports: Difficulty Walking, Weakness, Gait Disturbance. Denies: Confusion, Headache, Numbness, Pre-Existing Deficit, Tingling, Trouble Speaking Psychiatric: Reports: No Symptoms - Patient Data Vitals - Most Recent: Last Vital Signs Temp 98.2 F 02/06/19 04:02 Pulse 66 02/06/19 04:02 Resp 16 02/06/19 04:02 BP 128/79 02/06/19 04:02 Pulse Ox 94 L 02/06/19 04:02 Weight - Most Recent: 153 lb 6.4 oz I&O - Last 24 hours: Intake & Output 02/05/19 02/05/19 02/06/19 14:59 22:59 06:59 Intake Total 400 560 200 Output Total 500 600 Balance 400 60 -400 Lab Results - Last 24 hrs: Laboratory Results - last 24 hr 02/06/19 Range/Units 06:00 WBC 6.41 (3.98-10.04) K/mm3 RBC 3.66 L (3.98-5.22) M/mm3 Hgb 10.8 L (11.2-15.7) gm/L Hct 33.6 L (34.1-44.9) % MCV 91.8 (79.4-94.8) fl MCH 29.5 (25.6-32.2) pg MCHC 32.1 L (32.2-35.5) g/dl RDW Std Deviation 48.0 H (36.4-46.3) fL Plt Count 205 (182-369) K/mm3 MPV 10.0 (9.4-12.3) fl Neut % (Auto) 73.4 H (34.0-71.1) % Lymph % (Auto) 9.8 L (19.3-51.7) % [place] % (Auto) 12.8 H (4.7-12.5) % Eos % (Auto) 3.6 (0.7-5.8) Baso % (Auto) 0.2 (0.1-1.2) % Neut # (Auto) 4.71 (1.56-6.13) K/mm3 Lymph # (Auto) 0.63 L (1.18-3.74) K/mm3 [place] # (Auto) 0.82 H (0.24-0.36) K/mm3 Eos # (Auto) 0.23 (0.04-0.36) K/mm3 Baso # (Auto) 0.01 (0.01-0.08) K/mm3 Med Orders - Current: Current Medications Hydrocodone Bitart/Acetaminophen ([place] 325-5 Mg) 1 tab PO Q4H PRN PRN Reason: Pain Last Admin: 02/05/19 23:41 Dose: 1 tab Artificial Tears (Refresh Liquigel 1%) 0 ml EYEBOTH DAILY PRN PRN Reason: DRY EYES Ascorbic Acid (Vitamin C) 250 mg PO TIDMEALS [facility] Last Admin: 02/06/19 06:37 Dose: 250 mg Cholecalciferol (Vitamin D3) 5,000 unit PO DAILY [facility] Last Admin: 02/05/19 09:21 Dose: 5,000 unit Cyclobenzaprine HCl (Flexeril) 10 mg PO TID PRN PRN Reason: Muscle Spasm Last Admin: 01/31/19 04:13 Dose: 10 mg Docusate Sodium (Colace) 100 mg PO DAILY [facility] Last Admin: 02/05/19 09:21 Dose: 100 mg Famotidine (Pepcid) 20 mg PO BEDTIME [facility] Last Admin: 02/05/19 21:37 Dose: 20 mg Ferrous Sulfate (Ferrous Sulfate) 325 mg PO TIDMEALS [facility] Last Admin: 02/06/19 06:37 Dose: 325 mg Latanoprost (Xalatan 0.005% [facility] Soln) 0 ml EYEBOTH BEDTIME [facility] Last Admin: 02/05/19 21:37 Dose: 1 drop Levothyroxine Sodium (Levothyroxine) 75 mcg PO DAILY@0600 [facility] Last Admin: 02/06/19 06:37 Dose: 75 mcg Losartan Potassium (Cozaar) 100 mg PO BEDTIME [facility] Last Admin: 02/05/19 21:36 Dose: 100 mg Meclizine HCl (Antivert) 12.5 mg PO BID PRN PRN Reason: Dizziness Last Admin: 01/29/19 14:45 Dose: 12.5 mg Melatonin (Melatonin) 3 mg PO BEDTIME PRN PRN Reason: Insomnia Last Admin: 02/04/19 20:06 Dose: 3 mg Ondansetron HCl (Zofran) 4 mg IVPUSH Q4H PRN PRN Reason: Nausea/Vomiting Polyethylene Glycol (Miralax) 17 gm PO DAILY [facility] Last Admin: 02/05/19 09:21 Dose: Not Given Rosuvastatin Calcium (Crestor) 5 mg PO DAILY [facility] Last Admin: 02/05/19 09:20 Dose: 5 mg Sertraline HCl (Zoloft) 50 mg PO DAILY [facility] Last Admin: 02/05/19 09:21 Dose: 50 mg Sodium Chloride (Saline Flush) 10 ml FLUSH ASDIRECTED PRN PRN Reason: Keep Vein Open Last Admin: 01/28/19 09:13 Dose: 10 ml Verapamil HCl (Verelan) 240 mg PO QPM MOR Last Admin: 02/05/19 17:19 Dose: 240 mg Discontinued Medications Hydrocodone Bitart/Acetaminophen ([place] 325-5 Mg) 1 tab PO Q4H PRN PRN Reason: Pain Last Admin: 01/28/19 14:01 Dose: 1 tab Hydrocodone Bitart/Acetaminophen ([place] 325-5 Mg) 1 - 2 tab PO Q4H PRN PRN Reason: Pain Last Admin: 01/28/19 23:41 Dose: 2 tab Bisacodyl (Dulcolax) 10 mg RECTAL ONETIME ONE Stop: 02/01/19 11:08 Last Admin: 02/01/19 11:49 Dose: 10 mg Diphenhydramine HCl (Benadryl) 25 mg IVPUSH ONETIME ONE Stop: 01/30/19 09:01 Last Admin: 01/30/19 08:46 Dose: 25 mg Hydralazine HCl (Apresoline) 10 mg PO Q12H MOR Last Admin: 01/31/19 12:27 Dose: Not Given Sodium Chloride (Normal Saline) 1,000 mls @ 125 mls/hr IV ASDIRECTED [facility] Last Admin: 01/28/19 09:13 Dose: 125 mls/hr Sodium Chloride (Normal Saline) 500 mls @ 50 mls/hr IV ASDIRECTED [facility] Stop: 01/29/19 14:00 Sodium Chloride (Normal Saline) 250 mls @ 50 mls/hr IV ASDIRECTED [facility] Last Admin: 01/30/19 12:39 Dose: 50 mls/hr Sodium Chloride (Normal Saline) 250 mls @ 150 mls/hr IV ASDIRECTED [facility] Last Admin: 02/02/19 12:05 Dose: 150 mls/hr Magnesium Sulfate 4 gm/ Premix 50 mls @ 12.5 mls/hr IV ONETIME ONE Stop: 02/03/19 13:29 Last Admin: 02/03/19 09:45 Dose: 12.5 mls/hr Magnesium Sulfate 2 gm/ Premix 50 mls @ 25 mls/hr IV ONETIME ONE Stop: 02/05/19 10:54 Last Admin: 02/05/19 09:21 Dose: 25 mls/hr Ketorolac Tromethamine (Toradol) 15 mg IVPUSH ONETIME ONE Stop: 01/28/19 11:33 Last Admin: 01/28/19 11:36 Dose: 15 mg Latanoprost (Xalatan 0.005% Ophth Soln) 0 ml EYEBOTH BEDTIME [facility] Latanoprost (Xalatan 0.005% Ophth Soln) 0 ml EYEBOTH DAILY [facility] Last Admin: 02/01/19 08:52 Dose: Not Given Levothyroxine Sodium (Levothyroxine) 75 mcg PO QAM [facility] Last Admin: 02/02/19 07:01 Dose: 75 mcg Oxycodone HCl (Oxycodone) 5 - 10 mg PO Q4H PRN PRN Reason: Pain Last Admin: 02/01/19 15:40 Dose: 5 mg Pantoprazole Sodium (Protonix Iv) 40 mg IVPUSH Q12H [facility] Last Admin: 02/01/19 08:40 Dose: 40 mg Pantoprazole Sodium (Protonix) 40 mg PO Q12H [facility] Last Admin: 02/02/19 09:46 Dose: 40 mg Pantoprazole Sodium (Protonix Iv) 40 mg IVPUSH Q12H [facility] Last Admin: 02/05/19 09:19 Dose: 40 mg Propofol (Diprivan 20 Ml) Confirm Administered Dose 200 mg .ROUTE .STK-MED ONE Stop: 01/30/19 13:45 Spironolactone (Aldactone) 50 mg PO DAILY [facility] Last Admin: 01/30/19 08:35 Dose: 50 mg - Exam Quality Assessment: Reports: Urine Catheter, DVT Prophylaxis General: Reports: Alert, Oriented, Cooperative, No Acute Distress HEENT: Reports: Pupils Equal, Pupils Reactive, EOMI, Mucous Membr. Moist/[place] Neck: Reports: Supple, Trachea Midline Lungs: Reports: Clear to Auscultation, Normal Respiratory Effort Cardiovascular: Reports: Regular Rate, Regular Rhythm GI/Abdominal Exam: Normal Bowel Sounds, Soft, Non-Tender, No Distention, No Abnormal Bruit (Female) Exam: Deferred Rectal (Female) Exam: Deferred Back Exam: Reports: Normal Inspection, Full Range of Motion Extremities: Normal Inspection (left leg ), Normal Range of Motion (left leg ), Non-Tender (left leg ), No Pedal Edema, Normal Capillary Refill, Leg Pain ( Right leg), Limited Range of Motion (Right leg 2/2 splint ), Other (Splint in place on right leg) Skin: Reports: Warm, Dry, Intact Neurological: Reports: No New Focal Deficit Psy/Mental Status: Reports: Alert, Normal Affect, Normal Mood
[2019-02-06] MEDS: Rosuvastatin 10 MG Tab PO SCH (08:10)
[2019-02-06] MEDS: Cholecalciferol (Vitamin D3) 5,000 UNIT Tab PO SCH (08:11)
[2019-02-06] MEDS: Polyethylene Glycol 3350 Powder 17 GM Packet PO SCH (08:11)
[2019-02-06] MEDS: Sertraline 50 MG Tab PO SCH (08:11)
[2019-02-06] MEDS: Acetaminophen/HYDROcodone 325-5 MG Tab PO PRN ×2 (08:11→12:44)
[2019-02-06] MEDS: Docusate Sodium 100 MG Cap PO SCH (08:11)
[2019-02-06] MEDS: Cyclobenzaprine 10 MG Tab PO PRN (10:07)
[2019-02-06 12:23] VITALS: BP 120/90
== END 2019-02-06 12:52 | DRG 562 ==
LOC: JD.ED 08:23 → JD.MS 12:46
PROVIDERS: ADMIT Family Medicine; ATTEND Family Medicine
PROC: 2W3QX1Z Immobilization of Right Lower Leg using Splint (ICD-10-PCS; principal; 2019-01-28)
PROC: 0DJ08ZZ Inspection of Upper Intestinal Tract, Via Natural or Artificial Opening Endoscopic (ICD-10-PCS; 2019-01-28)
PROC: 30233N1 Transfusion of Nonautologous Red Blood Cells into Peripheral Vein, Percutaneous Approach (ICD-10-PCS; 2019-01-29)
DX: S82.841A Displaced bimalleolar fracture of right lower leg, initial encounter for closed fracture (principal); K25.0 Acute gastric ulcer with hemorrhage; R41.0 Disorientation, unspecified; D62 Acute posthemorrhagic anemia; W01.0XXA Fall on same level from slipping, tripping and stumbling without subsequent striking against object, initial encounter; E78.00 Pure hypercholesterolemia, unspecified; I10 Essential (primary) hypertension; M19.90 Unspecified osteoarthritis, unspecified site; M81.0 Age-related osteoporosis without current pathological fracture; F41.9 Anxiety disorder, unspecified; D64.9 Anemia, unspecified; F32.9 Major depressive disorder, single episode, unspecified; E03.9 Hypothyroidism, unspecified; E86.0 Dehydration; I95.1 Orthostatic hypotension; N81.10 Cystocele, unspecified; R33.9 Retention of urine, unspecified; K44.9 Diaphragmatic hernia without obstruction or gangrene; K21.9 Gastro-esophageal reflux disease without esophagitis; H35.30 Unspecified macular degeneration; M25.571 Pain in right ankle and joints of right foot; R60.0 Localized edema; Z88.8 Allergy status to other drugs, medicaments and biological substances; Z91.048 Other nonmedicinal substance allergy status; Z79.899 Other long term (current) drug therapy; Z79.890 Hormone replacement therapy; Z87.440 Personal history of urinary (tract) infections; Z85.828 Personal history of other malignant neoplasm of skin; Z90.49 Acquired absence of other specified parts of digestive tract; Z90.710 Acquired absence of both cervix and uterus; Z86.73 Personal history of transient ischemic attack (TIA), and cerebral infarction without residual deficits
CPT/HCPCS: 29515; 36415; 70450; 71045; 73610; 80053; 81001; 83605; 84484; 85025; 86140; 87040 ×2; 93005; 96361; 96374; 99285; J1885; J7040; 00731; 36430; 51701; 51702; 51798; 73502-26-RT; 73502-RT; 80048; 81003; 83735; 84100; 85014; 85018; 86677; 86850; 86900; 86901; 86922; 87338; 87641; 94667; 97110-GO; 97110-GP; 97161-GP; 97167-GO; 97530-GO; 97530-GP; A9270-GY; C9113; J1200; J2704; J3475; J7050; P9016

== ENCOUNTER 2019-02-12 10:39 | Day surgery (SDC) | payer MEDICARE, OTHER ==
[~2019-02-12 10:39] MED LIST: Lactated Ringers 1,000 ML IV SCH; Lidocaine 1%/Sod Bicarbonate in NS 8.4% 1 ML Syringe IDERM PRN; Propofol 200 MG/20 ML SDV ONE; Sodium Chloride 0.9% 10 ML Syringe FLUSH PRN; fentaNYL 100 MCG/2 ML SDV ONE
[2019-02-12] MEDS ORDERED: Lidocaine 1%/Sod Bicarbonate in NS 8.4% 1 ML Syringe IDERM PRN (10:45)
[2019-02-12] MEDS ORDERED: Lactated Ringers 1,000 ML IV SCH (10:45)
--- NOTE | 2019-02-12 11:28 | PCM.PREANE ---
Preanesthetic Assessment - Anesthesia/Transfusion/Family Hx Anesthesia History: Prior Anesthesia Without Reaction Other Type of Anesthesia Reaction Comment: confusion Family History of Anesthesia Reaction: No Transfusion History: No Prior Transfusion(s) Intubation History: Unknown - Review of Systems General: No Symptoms Pulmonary: No Symptoms Cardiovascular: No Symptoms Gastrointestinal: No Symptoms Neurological: No Symptoms Other: Reports: None, Easy Bruising - Physical Assessment NPO Status Date: 02/11/19 NPO Status Time: 05:00 O2 Sat by Pulse Oximetry: 94 Respiratory Rate: 16 Vital Signs: Last Vital Signs Temp 37.3 C 02/12/19 10:55 Pulse 73 02/12/19 10:55 Resp 16 02/12/19 10:55 BP 148/69 H 02/12/19 10:55 Pulse Ox 94 L 02/12/19 10:55 Height: 18.59 m Weight: 70.76 kg ASA Class: 3 Mental Status: Alert & Oriented x3 Airway Class: Mallampati = 2 Dentition: Reports: [place](s) ROM/Head Extension: Limited/Partial Lungs: Clear to Auscultation, Normal Respiratory Effort Cardiovascular: Regular Rate, Regular Rhythm - Allergies Allergies/Adverse Reactions: Allergies Allergy/AdvReac Type Severity Reaction Status Date / Time hydrochlorothiazide Allergy Cannot Verified 02/11/19 13:04 Remember pollen extracts Allergy Sneezing Verified 02/11/19 13:04 simvastatin [From Zocor] Allergy Cannot Verified 02/11/19 13:04 Remember dust Allergy Cough Uncoded 02/11/19 13:04 - Acknowledgements Anesthesia Type Planned: MAC Pt an Appropriate Candidate for the Planned Anesthesia: Yes Alternatives and Risks of Anesthesia Discussed w Pt/Guardian: Yes Pt/Guardian Understands and Agrees with Anesthesia Plan: Yes PreAnesthesia Questionnaire HEENT History: Reports: Macular Degeneration Cardiovascular History: Reports: High Cholesterol, Hypertension Respiratory History: Reports: Croup Gastrointestinal History: Reports: Hiatal Hernia Genitourinary History: Reports: UTI, Recurrent, Other (See Below) Other Genitourinary History: bladder dropped-unable to have it repaired due to age TALENT DEVELOPMENT DIRECTOR History: Reports: Endometriosis, Musculoskeletal History: Reports: Osteoarthritis, Osteoporosis Neurological History: Reports: CVA, Other (See Below) Other Neuro History: CT head revealed a stroke in the past Psychiatric History: Reports: Anxiety, Depression Endocrine/Metabolic History: Reports: Hypothyroidism Hematologic History: Reports: Anemia Immunologic History: Reports: None Oncologic (Cancer) History: Reports: Other (See Below) Other Oncologic History: basal cell carcinoma skin cancer Dermatologic History: Reports: None - Infectious Disease History Infectious Disease History: Reports: Chicken Pox, Measles, Mumps - Past Surgical History Head Surgeries/Procedures: Reports: None HEENT Surgical History: Reports: Cataract Surgery Cardiovascular Surgical History: Reports: None Respiratory Surgical History: Reports: None GI Surgical History: Reports: Appendectomy, Cholecystectomy Female Surgical History: Reports: Hysterectomy Endocrine Surgical History: Reports: None Neurological Surgical History: Reports: None Musculoskeletal Surgical History: Reports: None Oncologic Surgical History: Reports: Other (See Below) Other Oncologic Surgeries/Procedures: removal of skin cancer - HOME MEDS Home Medications: Home Meds Verapamil HCl [Verapamil ER] 240 mg PO DAILY 06/13/14 [History] Spironolactone 50 mg PO DAILY 01/29/18 [History] Acetaminophen [Tylenol] 500 mg PO DAILY PRN #30 02/06/19 [Rx] Ascorbic Acid [Vitamin C] 250 mg PO TIDMEALS #90 tablet 02/06/19 [Rx] Docusate Sodium [Colace] 100 mg PO DAILY #30 cap 02/06/19 [Rx] Latanoprost [Xalatan 0.005% Ophth Soln] 1 drop EYEBOTH DAILY #1 02/06/19 [Rx] Levothyroxine 75 mcg PO QAM #30 02/06/19 [Rx] Loratadine 10 mg PO DAILY #0 02/06/19 [Rx] Losartan Potassium 100 mg PO BEDTIME #30 02/06/19 [Rx] Omeprazole 20 mg PO ACBREAKFAST #0 02/06/19 [Rx] Polyethylene Glycol 3350 [MiraLAX] 17 gram PO Q72H #5 02/06/19 [Rx] Ranitidine [Zantac] 150 mcg PO BID PRN #30 02/06/19 [Rx] Rosuvastatin [Crestor] 5 mg PO DAILY #30 02/06/19 [Rx] Sertraline HCl [Zoloft] 50 mg PO DAILY #30 02/06/19 [Rx] Tetrahydrozoline HCl [Eye Drops] 1 drop EYEBOTH BEDTIME #1 02/06/19 [Rx] hydrALAZINE [Apresoline] 10 mg PO Q12HR #0 02/06/19 [Rx] Acetaminophen/HYDROcodone [[place] 325-5 MG] 1 tab PO Q8H PRN 02/11/19 [History] Cholecalciferol (Vitamin D3) [Vitamin D3] 5,000 units PO DAILY 02/11/19 [History ] Ferrous Sulfate 325 mg PO DAILY 02/11/19 [History] Lutein 10 mg PO DAILY 02/11/19 [History] Meclizine HCl 25 mg PO DAILY PRN 02/11/19 [History] Multivitamin [Multivitamins] 1 cap PO BID 02/12/19 [History] Polyethylene Glycol 3350 [MiraLAX] 17 gm PO ASDIRECTED 02/12/19 [History] - CURRENT (IN HOUSE) MEDS Current Meds: Current Medications Discontinued Medications Fentanyl (Sublimaze) Confirm Administered Dose 100 mcg .ROUTE .STK-MED ONE Stop: 02/12/19 10:39 Lactated Ringer's (Ringers, Lactated) 1,000 mls @ 125 mls/hr IV ASDIRECTED MOR Stop: 02/04/19 23:00 Lidocaine/Sodium Bicarbonate (Buffered Lidocaine 1% In Ns 8.4%) 0.25 ml IDERM ONETIME PRN PRN Reason: Prior to IV Start Stop: 02/04/19 18:00 Propofol (Diprivan 20 Ml) Confirm Administered Dose 200 mg .ROUTE .STK-MED ONE Stop: 02/12/19 10:40 Sodium Chloride (Saline Flush) 10 ml FLUSH ASDIRECTED PRN PRN Reason: Keep Vein Open Stop: 02/04/19 18:00
[2019-02-12] MEDS ORDERED: Sodium Chloride 0.9% 10 ML Syringe FLUSH PRN (11:39)
[2019-02-12] MEDS ORDERED: Ondansetron 4 MG/2 ML SDV ONE (12:08)
--- NOTE | 2019-02-12 12:39 | PCM.POSTAN ---
POST ANESTHESIA ASSESSMENT - RESPIRATORY Respiratory Status: Respiratory Rate WNL, Airway Patent, O2 Saturation Stable, Supplemental Oxygen - CARDIOVASCULAR CV Status: Pulse Rate WNL, Blood Pressure Stable - GASTROINTESTINAL GI Status: No Symptoms - POST OP HYDRATION Hydration Status: Adequate & Stable
--- NOTE | 2019-02-12 12:40 | PCM48HPAN ---
Post Anesthesia Note - EVALUATION WITHIN 48HRS OF ANESTHETIC Patient Participated in Evaluation: Yes Respiratory Function Stable: Yes Airway Patent: Yes Cardiovascular Function Stable: Yes Hydration Status Stable: Yes Pain Control Satisfactory: Yes Nausea and Vomiting Control Satisfactory: Yes Mental Status Recovered: Yes Pulse Rate: 75 SaO2: 100 Resp Rate: 16 Temperature: 97.9 C Blood Pressure: 122/69 Pulse Rate: 75
[2019-02-12] MEDS ORDERED: Acetaminophen/HYDROcodone 325-5 MG Tab PO SCH (13:10)
--- NOTE | 2019-02-12 13:15 | CR ---
Right ankle: Three fluoroscopic spot views were obtained of the left ankle utilizing C-arm device. Comparison: Prior right ankle study of 01/28/19. Slightly displaced lateral malleolar fracture is again noted. Final film shows plaster cast in place. Fluoroscopy time is given as 11.4 seconds. Impression: 1. Findings as noted above. Diagnostic code #2
[2019-02-12 13:35] VITALS: BP 138/73
--- NOTE | 2019-02-18 07:20 | PCM.OPNOTE ---
- General Post-Op/Procedure Note Date of Surgery/Procedure: 02/13/19 Operative Procedure(s): closed reduction with casting of right bimalleolar ankle fracture Pre Op Diagnosis: right bimalleolar ankle fracture Post-Op Diagnosis: Same Anesthesia Technique: MAC Primary Surgeon: Pratik Ashraf Anesthesia Provider: Velasquez Titus Career And Guidance Counselor: Natalie Ford EBAlyson in mLs: 0 Complications: None Condition: Good
--- NOTE | 2019-02-18 11:40 | OR ---
DATE OF OPERATION: 02/13/2019 SURGEON: Pratik Ashraf MD OPERATION PERFORMED: Closed reduction with casting of right bimalleolar ankle fracture. PREOPERATIVE DIAGNOSIS: Right bimalleolar ankle fracture. POSTOPERATIVE DIAGNOSIS: Right bimalleolar ankle fracture. ANESTHESIA TECHNIQUE: MAC sedation. ANESTHESIA PROVIDER: Velasquez Titus CRNA. COORDINATING PRODUCER: Natalie Ford PA-C. ESTIMATED BLOOD LOSS: Not applicable. COMPLICATIONS: None. CONDITION: Stable. DESCRIPTION OF PROCEDURE: The patient was identified in the preop holding area. Proper site was marked and identified by surgeon. The patient was taken back to the operating theater, where after adequate anesthesia, C-arm fluoroscopy was utilized showing severe displacement of the bimalleolar ankle fracture of the right ankle at this time. A 3- point molding was done for reduction of the ankle making sure it was reduced on both AP and lateral views. Once it was reduced, a short-leg cast was applied and then molding was held with 3 point pressure. To keep it reduced, it was found to be in adequate alignment for nonoperative management in this limited mobility patient. At this time, the short-leg cast was allowed to harden. The patient was sent to the PACU in stable condition. We will follow up in 3-4 weeks in clinic. ANESTHESIA: MMODAL /[id number]
== END 2019-02-12 14:05 ==
LOC: JD.SDS 10:39
PROVIDERS: ATTEND Orthopaedic Surgery
DX: S82.841A Displaced bimalleolar fracture of right lower leg, initial encounter for closed fracture (principal); I10 Essential (primary) hypertension; E78.00 Pure hypercholesterolemia, unspecified; E03.9 Hypothyroidism, unspecified; F41.9 Anxiety disorder, unspecified; F32.9 Major depressive disorder, single episode, unspecified; X58.XXXA Exposure to other specified factors, initial encounter; Z88.8 Allergy status to other drugs, medicaments and biological substances; Z91.09 Other allergy status, other than to drugs and biological substances; Z86.73 Personal history of transient ischemic attack (TIA), and cerebral infarction without residual deficits; Z79.899 Other long term (current) drug therapy
CPT/HCPCS: 27810; 76000; A9270; J2405; J2704; J3010; J7120; 01462

== ENCOUNTER → 2019-03-28 | Day surgery (SDC) | payer MEDICARE, OTHER ==
[~2019-03-28] MED LIST changes: +Midazolam 1 MG/ML 2 ML SDV ONE; -fentaNYL 100 MCG/2 ML SDV ONE
--- NOTE | 2019-03-28 07:48 | PCM.PREANE ---
Preanesthetic Assessment - Anesthesia/Transfusion/Family Hx Anesthesia History: Prior Anesthesia Without Reaction Other Type of Anesthesia Reaction Comment: confusion Family History of Anesthesia Reaction: No Transfusion History: Prior Transfusion Without Reaction Intubation History: Unknown - Review of Systems General: No Symptoms Pulmonary: No Symptoms Cardiovascular: No Symptoms Gastrointestinal: Difficulty Swallowing Neurological: No Symptoms Other: Reports: None - Physical Assessment NPO Status Date: 03/27/19 NPO Status Time: 06:00 Height: 1.57 m Weight: 68.039 kg ASA Class: 3 Mental Status: Alert & Oriented x3 Airway Class: Mallampati = 2 Dentition: Reports: Normal Dentition ROM/Head Extension: Limited/Partial Lungs: Clear to Auscultation, Normal Respiratory Effort Cardiovascular: Regular Rate, Regular Rhythm - Allergies Allergies/Adverse Reactions: Allergies Allergy/AdvReac Type Severity Reaction Status Date / Time hydrochlorothiazide Allergy Cannot Verified 03/27/19 14:06 Remember pollen extracts Allergy Sneezing Verified 03/27/19 14:06 simvastatin [From Zocor] Allergy Cannot Verified 03/27/19 14:06 Remember dust Allergy Cough Uncoded 03/27/19 14:06 - Blood Blood Available: No Product(s) Available: None - Anesthesia Plan Beta Rc: Metoprolol - Acknowledgements Anesthesia Type Planned: MAC Pt an Appropriate Candidate for the Planned Anesthesia: Yes Alternatives and Risks of Anesthesia Discussed w Pt/Guardian: Yes Pt/Guardian Understands and Agrees with Anesthesia Plan: Yes Additional Comments: recent fx leg January 2019- no problems PreAnesthesia Questionnaire HEENT History: Reports: Epistaxis, Macular Degeneration Cardiovascular History: Reports: High Cholesterol, Hypertension, Other (See Below) Other Cardiovascular History: orthostatic hypotension Respiratory History: Reports: Croup Gastrointestinal History: Reports: GERD, Hiatal Hernia Genitourinary History: Reports: UTI, Recurrent, Other (See Below) Other Genitourinary History: bladder dropped-unable to have it repaired due to age, urinary retention 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: Endometriosis, Musculoskeletal History: Reports: Osteoarthritis, Osteoporosis Other Musculoskeletal History: right ankle fracture, rib fracture, sacrum fracture, pelvic fracture, disorder of bone and cartilage Neurological History: Reports: CVA, Other (See Below) Other Neuro History: CT head revealed a stroke in the past, acute confusion, dizziness Psychiatric History: Reports: Anxiety, Depression, Other (See Below) Other Psychiatric History: dysthymic disorder Endocrine/Metabolic History: Reports: Hypothyroidism, Osteopenia Hematologic History: Reports: Anemia Immunologic History: Reports: None Oncologic (Cancer) History: Reports: None, Other (See Below) Other Oncologic History: basal cell carcinoma skin cancer Dermatologic History: Reports: None - Infectious Disease History Infectious Disease History: Reports: Chicken Pox, Measles, Mumps - Past Surgical History Head Surgeries/Procedures: Reports: None HEENT Surgical History: Reports: Cataract Surgery Cardiovascular Surgical History: Reports: None Respiratory Surgical History: Reports: None GI Surgical History: Reports: Appendectomy, Cholecystectomy, EGD Female Surgical History: Reports: Hysterectomy Endocrine Surgical History: Reports: None Neurological Surgical History: Reports: None Musculoskeletal Surgical History: Reports: None Oncologic Surgical History: Reports: Other (See Below) Other Oncologic Surgeries/Procedures: removal of skin cancer Dermatological Surgical History: Reports: None - HOME MEDS Home Medications: Home Meds Verapamil HCl [Verapamil ER] 240 mg PO DAILY 06/13/14 [History] Docusate Sodium [Colace] 100 mg PO DAILY #30 cap 02/06/19 [Rx] Latanoprost [Xalatan 0.005% Ophth Soln] 1 drop EYEBOTH DAILY #1 02/06/19 [Rx] Loratadine 10 mg PO DAILY #0 02/06/19 [Rx] Losartan Potassium 100 mg PO BEDTIME #30 02/06/19 [Rx] Omeprazole 20 mg PO ACBREAKFAST #0 02/06/19 [Rx] Ranitidine [Zantac] 150 mcg PO BID PRN #30 02/06/19 [Rx] Rosuvastatin [Crestor] 5 mg PO DAILY #30 02/06/19 [Rx] Sertraline HCl [Zoloft] 50 mg PO DAILY #30 02/06/19 [Rx] Tetrahydrozoline HCl [Eye Drops] 1 drop EYEBOTH BEDTIME #1 02/06/19 [Rx] Acetaminophen/HYDROcodone [[employer] 325-5 MG] 1 tab PO Q8H PRN 02/11/19 [History] Cholecalciferol (Vitamin D3) [Vitamin D3] 5,000 units PO Q48H 02/11/19 [History] Ferrous Sulfate 325 mg PO TID 02/11/19 [History] Meclizine HCl 12.5 mg PO BID PRN 02/11/19 [History] Multivitamin [Multivitamins] 1 cap PO DAILY 02/12/19 [History] Polyethylene Glycol 3350 [MiraLAX] 17 gm PO Q72H 02/12/19 [History] Acetaminophen [Tylenol] 650 mg PO TID 03/27/19 [History] Ascorbic Acid [Vitamin C] 250 mg PO TID 03/27/19 [History] Bisacodyl [Dulcolax] 10 mg RECTAL DAILY PRN 03/27/19 [History] Calcium Carbonate [Oyster Shell Calcium] 500 mg PO TID 03/27/19 [History] Levothyroxine [Synthroid] 88 mcg PO DAILY 03/27/19 [History] Oxybutynin 10 mg PO BEDTIME 03/27/19 [History] Polyvinyl Alcohol/Povidone/Pf [Refresh Classic Eye Drops] 1 drop EYEBOTH DAILY 03/27/19 [History] Sennosides [Senna] 8.6 mg PO DAILY PRN 03/27/19 [History] Spironolactone [Aldactone] 25 mg PO DAILY 03/27/19 [History] Sulfamethoxazole/Trimethoprim [Bactrim Ds Tablet] 1 tab PO BID 03/27/19 [History ] hydrALAZINE [Apresoline] 5 mg PO Q12HR 03/27/19 [History] - CURRENT (IN HOUSE) MEDS Current Meds: Current Medications Lactated Ringer's (Ringers, Lactated) 1,000 mls @ 125 mls/hr IV ASDIRECTED MOR Stop: 03/28/19 23:00 Lidocaine/Sodium Bicarbonate (Buffered Lidocaine 1% In Ns 8.4%) 0.25 ml IDERM ONETIME PRN PRN Reason: Prior to IV Start Stop: 03/28/19 18:00 Sodium Chloride (Saline Flush) 10 ml FLUSH ASDIRECTED PRN PRN Reason: Keep Vein Open Stop: 03/28/19 18:00
--- NOTE | 2019-03-28 10:16 | PCM.OPNOTE ---
- General Post-Op/Procedure Note Date of Surgery/Procedure: 03/28/19 Operative Procedure(s): EGD Pre Op Diagnosis: anemia Post-Op Diagnosis: Same Anesthesia Technique: MAC Primary Surgeon: Karthikeyan Frey EBL in mLs: 0 Complications: None Condition: Good
--- NOTE | 2019-03-28 10:19 | PCM.POSTAN ---
POST ANESTHESIA ASSESSMENT - MENTAL STATUS Mental Status: Alert - RESPIRATORY Respiratory Status: Respiratory Rate WNL, Airway Patent, O2 Saturation Stable, Supplemental Oxygen - CARDIOVASCULAR CV Status: Pulse Rate WNL, Blood Pressure Stable - GASTROINTESTINAL GI Status: No Symptoms - POST OP HYDRATION Hydration Status: Adequate & Stable
--- NOTE | 2019-03-28 10:20 | PCM48HPAN ---
Post Anesthesia Note - EVALUATION WITHIN 48HRS OF ANESTHETIC Vital Signs in Normal Range: Yes Patient Participated in Evaluation: Yes Respiratory Function Stable: Yes Airway Patent: Yes Cardiovascular Function Stable: Yes Hydration Status Stable: Yes Pain Control Satisfactory: Yes Nausea and Vomiting Control Satisfactory: Yes Mental Status Recovered: Yes Resp Rate: 16
[2019-03-28 11:53] VITALS: BP 124/71
--- NOTE | 2019-03-29 08:05 | OR ---
DATE OF OPERATION: 03/28/2019 SURGEON: Karthikeyan Frey MD PREOPERATIVE DIAGNOSIS: Anemia. POSTOPERATIVE DIAGNOSIS: Anemia. OPERATION PERFORMED: Esophagogastroduodenoscopy. FINDINGS: A large hiatal hernia with torturous esophagus. Second portion of the duodenum, duodenal bulb, pyloric channel, antrum, body, cardia, and fundus of the stomach, and other fundic gland polyps were free of any acute pathology. GE junction was unremarkable. Assessment is chronic condition of the stomach. No acute source of bleeding noted. ANESTHESIA: Procedure done under IV sedation. DESCRIPTION OF PROCEDURE: The patient was taken to the endoscopy room, placed in a supine position, connected to monitoring equipment, and given IV sedation. Bite block was inserted, and she was placed in the left lateral position. A video gastric endoscope was placed in the posterior oropharynx and threaded past the cricopharyngeus, down the esophagus, into the stomach. The stomach was insufflated, and the scope passed through the pylorus to the second portion of the duodenum. It was slowly withdrawn noting no acute pathology. Antrum, body, and cardia and fundus of stomach were viewed. Gastric fundic gland polyps were noted and a large hiatal hernia with incompetent hiatus. Scope was withdrawn in the hiatal hernia pouch and did not see any ulcerations or pathology. GE junction unremarkable, and the rest of the esophagus was viewed as the scope was withdrawn and normal. The patient tolerated the procedure and sent to recovery room in a stable condition to be followed up in the clinic by family doctor. ESTIMATED BLOOD LOSS: MMODAL /[id number]
== END | disposition home or self-care (01) ==
LOC: JD.SDS 07:16
PROVIDERS: ATTEND Surgery
DX: D64.9 Anemia, unspecified (principal); K44.9 Diaphragmatic hernia without obstruction or gangrene; I10 Essential (primary) hypertension; E78.5 Hyperlipidemia, unspecified; E03.9 Hypothyroidism, unspecified; E78.00 Pure hypercholesterolemia, unspecified; M19.90 Unspecified osteoarthritis, unspecified site; H35.30 Unspecified macular degeneration; Z79.899 Other long term (current) drug therapy; Z88.8 Allergy status to other drugs, medicaments and biological substances; Z91.048 Other nonmedicinal substance allergy status; Z86.73 Personal history of transient ischemic attack (TIA), and cerebral infarction without residual deficits; Z98.890 Other specified postprocedural states
CPT/HCPCS: 43235; J2250; J2704; J7120